=== PATIENT | male | born 1945 | race Caucasian/White ===

== ENCOUNTER 2018-09-07 18:10 | Inpatient (IN) | payer MEDICARE ==
[~2018-09-07] VITALS: Ht 170.2 cm; Wt 77.8 kg
[2018-09-07 18:40] VITALS: BP 163/84
[2018-09-07] MEDS ORDERED: NITROGLYCERIN 0.4 MG SL TABS BTL 25'S SL PRN (18:45)
--- OUTSIDE RECORDS SUMMARY | 2018-09-07 18:50 | XMS REPORT ---
Author Author [facility] Medical Staff Organization [facility] Address [address], [place] [address] Phone [phone] Care Team Providers Care Prefitter Name Role Phone OMAR GUZMÁN, LAURYN PP [phone] LAURYN NELSON MD, PP [phone] Summary purpose TRANSITION OF CARE AUTO GENERATION Chief Complaint and Reason for Visit No authorized Reason for Visit (Admitting Diagnosis) is available for this visit. Problem list No authorized problems tracked for continuity of care are available for this visit. Encounters No authorized problems tracked for encounter diagnoses are available for this visit. Medications No medications recorded for this patient visit Allergies, adverse reactions, alerts Allergen Category Ingredient Status Reaction Severity Onset morphine Drug Allergy morphine Confirmed or Verified whole body became warm Hydrocodone Drug Allergy Hydrocodone Confirmed or Verified makes him crazy bee stings Miscellaneous Allergy bee stings Confirmed or Verified Immunizations No immunizations recorded for this patient visit Relevant diagnostic tests and/or laboratory data No authorized results are available for this patient visit History of procedures No procedures recorded for this patient visit. Functional status No functional or cognitive status observations are available for this visit. Vital signs No authorized vital signs are available for this visit. Social history No Social History or smoking status observations were recorded for this visit. ( Unknown if ever smoked.) Treatment Plan No treatment plan text is available for this visit. Hospital discharge instructions No discharge instruction text is available for this visit.
--- OUTSIDE RECORDS SUMMARY | 2018-09-07 18:50 | XMS REPORT ---
Author Author [facility] Medical Staff Organization [facility] Address [address], [place] [address] Phone [phone] Care Team Providers Care Pin Drafter Operator Name Role Phone OMAR GUZMÁN, LAURYN PP [phone] LAURYN NELSON MD, PP [phone] Summary purpose TRANSITION OF CARE AUTO GENERATION [...]
--- OUTSIDE RECORDS SUMMARY | 2018-09-07 18:50 | XMS REPORT ---
Author Author [facility] Medical Staff [facility] Address [address], [place] [address] Phone [phone] Care Team Providers Care Parks Worker Name Role Phone OMAR GUZMÁN, LAURYN PP [phone] LAURYN NELSON MD, PP [phone] Summary purpose TRANSITION OF CARE AUTO GENERATION [...] for this patient visit History of procedures Procedure Code Code Type Description Date Performed Performing Physician 97329 CPT-4 POLYSOMNOGRAPHY W/CPAP 04-05-2016 SHAWNA HUDSON Functional status No functional or cognitive status [...]
--- OUTSIDE RECORDS SUMMARY | 2018-09-07 18:50 | XMS REPORT ---
Author Author [facility] Medical Staff Organization [facility] Address [address], [place] [address] Phone [phone] Care Team Providers Care City Letter Carrier Name Role Phone OMAR GUZMÁN, LAURYN PP [phone] LAURYN NELSON MD, PP [phone] Summary purpose TRANSITION OF CARE AUTO GENERATION [...] Code Type Description Date Performed Performing Physician 17892 CPT-4 POLYSOM 6/> YRS 4/> LUZ 01-20-2016 SHAWNA HUDSON Functional status No functional or [...]
--- OUTSIDE RECORDS SUMMARY | 2018-09-07 18:51 | XMS REPORT ---
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
--- OUTSIDE RECORDS SUMMARY | 2018-09-07 18:51 | XMS REPORT ---
Author Author Isaac Barger Organization [employer] Address Unknown Phone Unavailable Care Team Providers Care Cell Operator Name Role Phone Isaac Barger CP Unavailable Allergies, Adverse Reactions, Alerts Substance Reaction Event Type Morphine Sulfate Info Not Available Drug Allergy Problems Problem Type Condition ICD-9 Code Onset Dates Condition Status Problem Coronary atherosclerosis of unspecified type of vessel, [place] or graft 414.00 Active Problem Unspecified essential hypertension 401.9 Active Problem Paralysis agitans 332.0 Active Assessment Paralysis agitans 332.0 Active Problem Pure hypercholesterolemia 272.0 Active Assessment Costochondritis 733.6 Active Medications Medication Code System Code Instructions Start Date End Date Status Dosage Verapamil HCl [facility] [address]-21 80MG TAKE ONE TABLET BY MOUTH TWICE DAILY Prilosec [facility] [address]-85 20 MG Orally Once a day Jun 27, 2014 1 capsule Indomethacin [facility] [address]-44 50 MG Orally 2 or 3 times a day Dec 26, 2014 Jan 02, 2015 1 capsule with food Nitrostat [facility] [address]-33 0.4 MG Sublingual every 5 minutes up to 3 doses Jun 19, 2012 1 tablet under the tongue and allow to dissolve as needed Aspirin [facility] [address]-53 325 MG Orally Once a day 1 tablet Azilect [facility] [address]-98 0.5 MG Orally once a day Jul 05, 2013 1 tab Pravastatin Sodium [facility] [address]-97 40MG TAKE ONE TABLET BY MOUTH AT BEDTIME Procedures Procedure Coding System Code Date ELECTROCARDIOGRAM, TRACING CPT-4 34274 Dec 26, 2014 Office Visit, Est Pt., Level 3 CPT-4 43296 Dec 26, 2014 ELECTROCARDIOGRAM REPORT CPT-4 54864 Dec 26, 2014 PREHTN/HTN BP DOC INDCD F/U DOC CPT-4 G8950 Dec 26, 2014 TOBACCO NON-USER CPT-4 1036F Dec 26, 2014 Vital Signs Date/Time: Dec 26, 2014 BMI 32.92 Index Weight 204 lbs Height 66 in Oximetry 96 % Cardiac Monitoring Heart Rate 61 /min Blood Pressure Diastolic 88 mm Hg Blood Pressure Systolic 148 mm Hg Respiratory Rate 20 /min Results No Known Results Summary Purpose [employer]ClinicalWorks Submission
--- OUTSIDE RECORDS SUMMARY | 2018-09-07 18:51 | XMS REPORT ---
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
--- OUTSIDE RECORDS SUMMARY | 2018-09-07 18:51 | XMS REPORT ---
Author Author Isaac Barger Organization [employer] Address Unknown Phone Unavailable Care Team Providers Care Reel Hooker Name Role Phone Isaac Barger CP Unavailable Allergies, Adverse Reactions, Alerts Substance Reaction Event Type Morphine Sulfate Info Not Available Drug Allergy Problems Problem Type Condition Code Onset Dates Condition Status Assessment Essential (primary) hypertension I10 Active Assessment Atherosclerotic heart disease of [place] coronary artery without angina pectoris I25.10 Active Problem Parkinson's disease G20 Active Problem Essential (primary) hypertension I10 Active Problem Pure hypercholesterolemia E78.0 Active Assessment Pure hypercholesterolemia E78.0 Active Assessment Parkinson's disease G20 Active Problem Atherosclerotic heart disease of [place] coronary artery without angina pectoris I25.10 Active Assessment Chronic obstructive pulmonary disease, unspecified J44.9 Active Medications Medication Code System Code Instructions Start Date End Date Status Dosage Prilosec [facility] [address]-63 20 MG Orally Once a day Jun 27, 2014 1 capsule Pravastatin Sodium [facility] 00637091734 40MG TAKE ONE TABLET BY MOUTH AT BEDTIME Nitrostat [facility] [address]-28 0.4 MG Sublingual every 5 minutes up to 3 doses Jun 19, 2012 1 tablet under the tongue and allow to dissolve as needed Aspirin [facility] [address]-47 325 MG Orally Once a day 1 tablet Verapamil HCl [facility] 46642443114 80MG TAKE ONE TABLET BY MOUTH TWICE DAILY Azilect [facility] [address]-88 0.5 MG Orally once a day Jul 05, 2013 1 tab Procedures Procedure Coding System Code Date Office Visit, Est Pt., Level 3 CPT-4 51282 Sep 29, 2015 Vital Signs Date/Time: Sep 29, 2015 BMI 33.08 Index Weight 205 lbs Height 66 in Oximetry 95 % Cardiac Monitoring Heart Rate 107 /min Blood Pressure Diastolic 76 mm Hg Blood Pressure Systolic 134 mm Hg Results No Known Results Summary Purpose [employer]ClinicalWorks Submission
--- OUTSIDE RECORDS SUMMARY | 2018-09-07 18:51 | XMS REPORT ---
Author Author Israel Rodarte Organization [employer] Address Unknown Phone Unavailable Care Team Providers Care [place] Man Name Role Phone Israel Rodarte CP Unavailable Allergies No Known Allergies Problems Problem Type Condition Code Onset Dates Condition Status Problem Coronary atherosclerosis of unspecified type of vessel, [place] or graft 414.00 Active Problem Unspecified essential hypertension 401.9 Active Problem Paralysis agitans 332.0 Active Problem Pure hypercholesterolemia 272.0 Active Medications Medication Code System Code Instructions Start Date End Date Status Dosage Prilosec [facility] [address]-95 20 MG Orally Once a day Jun 27, 2014 1 capsule Results No Known Results Summary Purpose [employer]ClinicalWorks Submission
--- OUTSIDE RECORDS SUMMARY | 2018-09-07 18:51 | XMS REPORT ---
Author Author Israel Rodarte Organization [employer] Address Unknown Phone Unavailable Care Team Providers Care Bullet Slug Casting Machine Operator Name Role Phone Israel Rodarte CP Unavailable Allergies No Known Allergies Problems Problem Type Condition Code Onset Dates Condition Status Problem Coronary atherosclerosis of unspecified type of vessel, [place] or graft 414.00 Active Problem Unspecified essential hypertension 401.9 Active Problem Paralysis agitans 332.0 Active Problem Pure hypercholesterolemia 272.0 Active Medications Medication Code System Code Instructions Start Date End Date Status Dosage Prilosec [facility] [address]-63 20 MG Orally Once a day Jun 27, 2014 1 capsule Results No Known Results Summary Purpose [employer]Clinical[employer] Submission
--- OUTSIDE RECORDS SUMMARY | 2018-09-07 18:51 | XMS REPORT ---
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 421401017 Problem Pure hypercholesterolemia E78.0 Active 193365362 Problem Atherosclerotic heart disease of [place] coronary artery without angina pectoris I25.10 Active 127741905369968 Assessment Acute pharyngitis, unspecified J02.9 Oct, Active 616571977 Problem Parkinson's disease G20 Active 33022941 Problem Essential (primary) hypertension I10 Active 47239785 ALLERGIES Substance Reaction Event Type Date Status Morphine Sulfate Unknown Drug Allergy Oct, Active SOCIAL HISTORY No smoking Hx information available PLAN OF CARE VITAL SIGNS Height 66.0 in 2016-10-22 Weight 190 lbs 2016-10-22 BMI 30.66 kg/m2 2016-10-22 Heart Rate 70 /min 2016-10-22 Oximetry 97 % 2016-10-22 Temperature 94.8 degrees Fahrenheit 2016-10-22 Respiratory Rate 20 /min 2016-10-22 Blood pressure systolic 125 mm Hg 2016-10-22 Blood pressure diastolic 75 mm Hg 2016-10-22 MEDICATIONS Medication Instructions Dosage Frequency Start Date End Date Duration Status Nitrostat 0.4 MG Sublingual every 5 minutes up to 3 doses 1 tablet under the tongue and allow to dissolve as needed Jun, Active Azilect 0.5 MG Orally once a day 1 tab 24h Jun, 90 days Active Verapamil HCl 80MG TAKE ONE TABLET BY MOUTH TWICE DAILY 30 Active Pravastatin Sodium 40MG TAKE ONE TABLET BY MOUTH AT BEDTIME 90 Active Amoxicillin 500 MG Orally Three times a day 1 capsule 8h Oct, Oct, 10 days Active Aspirin 325 MG Orally Once a day 1 tablet 24h 30 day(s) Active Tizanidine HCl 4 MG Orally up to t.i.d. 1 tablet as needed Dec, Active Prilosec 20 MG Orally Once a day 1 capsule 24h Jun, 90 days Active RESULTS No Results PROCEDURES Procedure Date Ordered Related Diagnosis Body Site Office Visit, Est Pt., Level 3 Oct 22, 2016 IMMUNIZATIONS No Known Immunizations
--- OUTSIDE RECORDS SUMMARY | 2018-09-07 18:51 | XMS REPORT ---
Author Author Israel Rodarte Organization [employer] Address Unknown Phone Unavailable Care Team Providers Care Aircraft Mechanic Electrical And Radio Name Role Phone Israel Rodarte CP Unavailable Allergies, Adverse Reactions, Alerts Substance Reaction Event Type Morphine Sulfate Info Not Available Drug Allergy Problems Problem Type Condition Code Onset Dates Condition Status Problem Coronary atherosclerosis of unspecified type of vessel, [place] or graft 414.00 Active Problem Unspecified essential hypertension 401.9 Active Problem Paralysis agitans 332.0 Active Problem Pure hypercholesterolemia 272.0 Active Assessment Impacted cerumen 380.4 Active Medications Medication Code System Code Instructions Start Date End Date Status Dosage Prilosec [facility] [address]-22 20 MG Orally Once a day Jun 27, 2014 1 capsule Pravastatin Sodium [facility] [address]-94 40MG TAKE ONE TABLET BY MOUTH AT BEDTIME Verapamil HCl [facility] [address]-10 80MG TAKE ONE TABLET BY MOUTH TWICE DAILY Aspirin [facility] [address]-21 325 MG Orally Once a day 1 tablet Azilect [facility] [address]-98 0.5 MG Orally once a day Jul 05, 2013 1 tab Nitrostat [facility] [address]-91 0.4 MG Sublingual every 5 minutes up to 3 doses Jun 19, 2012 1 tablet under the tongue and allow to dissolve as needed Procedures Procedure Coding System Code Date TOBACCO NON-USER CPT-4 1036F February 25, 2015 BP SCR PRFRM RCMDD DEFIND SCR INTVL CPT-4 G8783 February 25, 2015 Office Visit, Est Pt., Level 3 CPT-4 16938 February 25, 2015 Vital Signs Date/Time: February 25, 2015 BMI 32.60 Index Weight 202 lbs Height 66 in Oximetry 98 % Cardiac Monitoring Heart Rate 75 /min Blood Pressure Diastolic 80 mm Hg Blood Pressure Systolic 136 mm Hg Respiratory Rate 20 /min Results No Known Results Summary Purpose eClinicalWorks Submission
--- OUTSIDE RECORDS SUMMARY | 2018-09-07 18:51 | XMS REPORT ---
Author Author Isaac Barger Organization [employer] Address Unknown Phone Unavailable Care Team Providers Care Supervisor Plate Pasting Name Role Phone Isaac Barger CP Unavailable Allergies No Known Allergies Problems Problem Type Condition ICD-9 Code Onset Dates Condition Status Problem Coronary atherosclerosis of unspecified type of vessel, [place] or graft 414.00 Active Problem Unspecified essential hypertension 401.9 Active Problem Paralysis agitans 332.0 Active Problem Pure hypercholesterolemia 272.0 Active Medications No Known Medications Results No Known Results Summary Purpose [employer]ClinicalWorks Submission
--- OUTSIDE RECORDS SUMMARY | 2018-09-07 18:51 | XMS REPORT ---
Author Author Isaac Barger Organization [employer] Address Unknown Phone Unavailable Care Team Providers Care Research Professional Name Role Phone Isaac Barger CP Unavailable Allergies, Adverse Reactions, Alerts Substance Reaction Event Type Morphine Sulfate Info Not Available Drug Allergy Problems Problem Type Condition Code Onset Dates Condition Status Assessment Unspecified open wound of right forearm, initial encounter S51.801A Active Assessment Encounter for immunization Z23 Active Medications Medication Code System Code Instructions Start Date End Date Status Dosage Verapamil HCl [facility] 02849277276 80MG TAKE ONE TABLET BY MOUTH TWICE DAILY Aspirin [facility] [address]-98 325 MG Orally Once a day 1 tablet Pravastatin Sodium [facility] 85704800073 40MG TAKE ONE TABLET BY MOUTH AT BEDTIME Prilosec [facility] [address]-78 20 MG Orally Once a day Jun 27, 2014 1 capsule Nitrostat [facility] [address]-49 0.4 MG Sublingual every 5 minutes up to 3 doses Jun 19, 2012 1 tablet under the tongue and allow to dissolve as needed Azilect [facility] [address]-74 0.5 MG Orally once a day Jul 05, 2013 1 tab Procedures Procedure Coding System Code Date TD VACCINE NO PRSRV >/=7 IM CPT-4 91477 Sep 04, 2015 FLU VACC medicare CPT-4 Q2038 Sep 04, 2015 ADMN FLU VAC NO FEE SCHED SAME DAY CPT-4 G0008 Sep 04, 2015 Results No Known Results Immunizations Vaccine Administration Date Influenza Sep 04, 2015 Td Sep 04, 2015 Summary Purpose eClinicalWorks Submission
--- OUTSIDE RECORDS SUMMARY | 2018-09-07 18:51 | XMS REPORT ---
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 140451284 Problem Pure hypercholesterolemia E78.0 Active 108281869 Problem Atherosclerotic heart disease of [place] coronary artery without angina pectoris I25.10 Active 274004634199681 Assessment Spondylosis without myelopathy or radiculopathy, cervical region M47.812 Jan, Active 316648888 Problem Parkinson's disease G20 Active 47025861 Problem Essential (primary) hypertension I10 Active 17454078 ALLERGIES Unknown Allergies SOCIAL HISTORY No smoking Hx information available PLAN OF CARE Activity Details Pending Test MRI : Cervical Spines ,Reason: VITAL SIGNS MEDICATIONS Medication Instructions Dosage Frequency Start Date End Date Duration Status Aspirin 325 MG Orally Once a day 1 tablet 24h 30 day(s) Active Tizanidine HCl 4 MG Orally up to t.i.d. 1 tablet as needed Dec, Active Prilosec 20 MG Orally Once a day 1 capsule 24h Jun, 90 days Active Pravastatin Sodium 40MG TAKE ONE TABLET BY MOUTH AT BEDTIME 90 Active Diazepam 10 MG Orally once a day 1 or 2 tablets an hour before procedure 24h Jan, Jan, Active Nitrostat 0.4 MG Sublingual every 5 minutes up to 3 doses 1 tablet under the tongue and allow to dissolve as needed Jun, Active Azilect 0.5 MG Orally once a day 1 tab 24h Jun, 90 days Active Verapamil HCl 80MG TAKE ONE TABLET BY MOUTH TWICE DAILY 30 Active RESULTS No Results PROCEDURES No Known procedures IMMUNIZATIONS No Known Immunizations
--- OUTSIDE RECORDS SUMMARY | 2018-09-07 18:51 | XMS REPORT ---
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
--- OUTSIDE RECORDS SUMMARY | 2018-09-07 18:52 | XMS REPORT ---
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 399779513260553 Problem Parkinson's disease G20 Active 72777753 Problem Essential (primary) hypertension I10 Active 44886498 ALLERGIES Substance Reaction Event Type Date Status Morphine Sulfate Unknown Drug Allergy Apr, Active ENCOUNTERS Encounter Location Date Diagnosis Isaac Barger MD [address] [place] [address] Apr, Pure hypercholesterolemia E78.0 ; Essential (primary) hypertension I10 and Chest pain , unspecified R07.9 Isaac Barger MD [address] [place] [address] Apr, Chest pain, unspecified R07.9 ; Pure hypercholesterolemia E78.0 ; Parkinson's disease G20 ; Essential (primary) hypertension I10 ; 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 and Spondylosis without myelopathy or radiculopathy, cervical region M47.812 Isaac Barger MD [address] [place] [address] Jan, Isaac Barger MD [address] [place] [address] Jan, Spondylosis without myelopathy or radiculopathy, cervical region M47.812 Isaac Barger MD [address] [place] [address] Oct, Acute pharyngitis, unspecified J02.9 Isaac Barger MD [address] [place] [address] Sep, Isaac Barger MD [address] [place] [address] Jan, Paralysis agitans 332.0 Isaac Barger MD [address] [place] [address] 18 Dec, 2015 Spondylosis without myelopathy or radiculopathy, cervical region M47.812 Isaac Barger MD [address] [place] [address] Nov, Spondylosis without myelopathy or radiculopathy, cervical region M47.812 Isaac Barger MD [address] [place] [address] Oct, Spondylosis without myelopathy or radiculopathy, cervical region M47.812 and Neoplasm of uncertain behavior of skin D48.5 Isaac Barger MD [address] [place] [address] 16 Sep, 2015 Chronic obstructive pulmonary disease, unspecified J44.9 ; Pure hypercholesterolemia E78.0 ; Parkinson's disease G20 ; Essential (primary) hypertension I10 and 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 Isaac Barger MD [address] [place] [address] Aug, Isaac Barger MD [address] [place] [address] Aug, Encounter for immunization Z23 and Unspecified open wound of right forearm, initial encounter S51.801A Isaac Barger MD [address] [place] [address] Aug, Isaac Barger MD [address] [place] [address] Jun, Isaac Barger MD [address] [place] [address] Feb, Impacted cerumen 380.4 Isaac Barger MD [address] [place] [address] Dec, Costochondritis 733.6 and Paralysis agitans 332.0 Isaac Barger MD [address] [place] [address] Aug, Actinic keratosis 702.0 and Need for prophylactic vaccination and inoculation, Influenza V04.81 Isaac Barger MD [address] [place] [address] 09 Jul, 2014 Cervical spondylosis without myelopathy 721.0 Isaac Barger MD [address] [place] [address] Jul, Isaac Barger MD [address] [place] [address] Jun, Cervical spondylosis without myelopathy 721.0 and Paralysis agitans 332.0 Isaac Barger MD [address] [place] [address] Jun, Isaac Barger MD [address] [place] [address] March, Isaac Barger MD [address] [place] [address] Jan, Slow transit constipation 564.01 Isaac Barger MD [address] [place] [address] Jan, Paralysis agitans 332.0 Isaac Barger MD [address] [place] [address] Jan, Isaac Barger MD [address] [place] [address] Oct, Osteoarthritis 715.16 ; Pure hypercholesterolemia 272.0 ; Unspecified essential hypertension 401.9 and Coronary atherosclerosis of unspecified type of vessel, ione or graft 414.00 Isaac Barger MD [address] [place] [address] Jul, Isaac Barger MD [address] [place] [address] Jul, Acute cystitis 595.0 and Need for prophylactic vaccination and inoculation, Influenza V04.81 Isaac Barger MD [address] [place] [address] Jun, Isaac Barger MD [address] [place] [address] Apr, Essential and other specified forms of tremor 333.1 ; Other vitamin B12 deficiency anemia 281.1 and Unspecified hypothyroidism 244.9 Isaac Barger MD [address] [place] [address] 04 Jan, 2013 Neoplasm of uncertain behavior of skin 238.2 and Unspecified essential hypertension 401.9 Isaac Barger MD [address] [place] [address] Nov, Neoplasm of uncertain behavior of skin 238.2 Isaac Barger MD [address] [place] [address] Nov, Isaac Barger MD [address] [place] [address] Nov, Neoplasm of uncertain behavior of skin 238.2 Isaac Barger MD [address] [place] [address] Nov, Neoplasm of uncertain behavior of skin 238.2 Isaac Barger MD [address] [place] [address] Jul, Neoplasm of uncertain behavior of skin 238.2 ; Pure hypercholesterolemia 272.0 ; Unspecified essential hypertension 401.9 ; Coronary atherosclerosis of unspecified type of vessel, ione or graft 414.00 and Need for prophylactic vaccination and inoculation, Influenza V04.81 Isaac Barger MD [address] [place] [address] Jun, Isaac Barger MD [address] [place] [address] Jun, Neoplasm of uncertain behavior of skin 238.2 ; Pure hypercholesterolemia 272.0 ; Unspecified essential hypertension 401.9 and Coronary atherosclerosis of unspecified type of vessel, ione or graft 414.00 Isaac Barger MD [address] [place] [address] Jun, Coronary atherosclerosis of unspecified type of vessel, ione or graft 414.00 Isaac Barger MD [address] [place] [address] Jan, Unspecified essential hypertension 401.9 ; Pure hypercholesterolemia 272.0 ; Raynaud's syndrome 443.0 and Contact dermatitis and other eczema, due to unspecified cause 692.9 Isaac Barger MD [address] [place] [address] Jan, Isaac Barger MD [address] [place] [address] Jan, Isaac Barger MD [address] [place] [address] Jun, Pure hypercholesterolemia 272.0 Isaac Barger MD [address] [place] [address] Jun, Pure hypercholesterolemia 272.0 Isaac Barger MD [address] [place] [address] Jun, Pure hypercholesterolemia 272.0 Isaac Barger MD [address] [place] [address] Apr, Pure hypercholesterolemia 272.0 and Hypertrophy (benign) of prostate without urinary obstruction and other lower urinary tract symptoms [LUTS] 600.00 Isaac Barger MD [address] [place] [address] March, Chest pain, unspecified 786.50 IMMUNIZATIONS No Known Immunizations SOCIAL HISTORY Never Assessed REASON FOR VISIT fasting lab and ECG PLAN OF CARE Activity Details Follow Up prn Reason: Pending Test CK-MB CP Future/Pending Procedure Ecg - Medicare VITAL SIGNS MEDICATIONS Medication Instructions Dosage Frequency Start Date End Date Duration Status Pramipexole Dihydrochloride 1.5 MG Orally Three times a day 1 tablet 8h Active Lidocaine 4 % Active Rasagiline Mesylate 1 MG Orally Once a day 1 tablet 24h Active Nitrostat 0.4 MG Sublingual every 5 minutes up to 3 doses 1 tablet under the tongue and allow to dissolve as needed Jun, Active Aspirin 325 MG Orally Once a day 1 tablet 24h 30 day(s) Active Verapamil HCl 80MG TAKE ONE TABLET BY MOUTH TWICE DAILY 30 Active Pravastatin Sodium 80 MG TAKE ONE TABLET BY MOUTH AT BEDTIME Active Prilosec 20 MG Orally Once a day 1 capsule 24h Jun, 90 days Active Azilect 0.5 MG Orally once a day 1 tab 24h Jun, 90 days Active RESULTS No Results PROCEDURES Procedure Date Ordered Result Body Site ELECTROCARDIOGRAM REPORT April 21, 2017 ELECTROCARDIOGRAM, TRACING April 21, 2017 INSTRUCTIONS MEDICATIONS ADMINISTERED No Known Medications MEDICAL (GENERAL) HISTORY Type Description Date Surgical History left knee arthroscopy Surgical History knee fracture, right Surgical History herniorrhaphy Surgical History right knee replacement, total 01/2014 Surgical History Heart cath Surgical History Heart cath
--- OUTSIDE RECORDS SUMMARY | 2018-09-07 18:52 | XMS REPORT ---
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 Active 755697373696869 Problem Parkinson's disease G20 Active 11776369 Problem Essential (primary) hypertension I10 Active 97025119 ALLERGIES Substance Reaction Event Type Date Status Morphine Sulfate Unknown Drug Allergy Apr, Active ENCOUNTERS Encounter Location Date Diagnosis Isaac Barger MD [address] [place] [address] Apr, Pure hypercholesterolemia E78.0 ; Essential (primary) hypertension I10 and Chest pain , unspecified R07.9 Isaac Barger MD [address] [place] [address] Apr, Chest pain, unspecified R07.9 ; Pure hypercholesterolemia E78.0 ; Parkinson's disease G20 ; Essential (primary) hypertension I10 ; 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 and Spondylosis without myelopathy or radiculopathy, cervical region M47.812 Isaac Barger MD [address] [place] [address] Jan, Isaac Barger MD [address] [place] [address] Jan, Spondylosis without myelopathy or radiculopathy, cervical region M47.812 Isaac Barger MD [address] [place] [address] Oct, Acute pharyngitis, unspecified J02.9 Isaac Barger MD [address] [place] [address] Sep, Isaac Barger MD [address] [place] [address] Jan, Paralysis agitans 332.0 Isaac Barger MD [address] [place] [address] 18 Dec, 2015 Spondylosis without myelopathy or radiculopathy, cervical region M47.812 Isaac Barger MD [address] [place] [address] Nov, Spondylosis without myelopathy or radiculopathy, cervical region M47.812 Isaac Barger MD [address] [place] [address] Oct, Spondylosis without myelopathy or radiculopathy, cervical region M47.812 and Neoplasm of uncertain behavior of skin D48.5 Isaac Barger MD [address] [place] [address] Sep, Chronic obstructive pulmonary disease, unspecified J44.9 ; Pure hypercholesterolemia E78.0 ; Parkinson's disease G20 ; Essential (primary) hypertension I10 and 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 Isaac Barger MD [address] [place] [address] Aug, Isaac Barger MD [address] [place] [address] Aug, Encounter for immunization Z23 and Unspecified open wound of right forearm, initial encounter S51.801A Isaac Barger MD [address] [place] [address] Aug, Isaac Barger MD [address] [place] [address] Jun, Isaac Barger MD [address] [place] [address] Feb, Impacted cerumen 380.4 Isaac Barger MD [address] [place] [address] Dec, Costochondritis 733.6 and Paralysis agitans 332.0 Isaac Barger MD [address] [place] [address] Aug, Actinic keratosis 702.0 and Need for prophylactic vaccination and inoculation, Influenza V04.81 Isaac Barger MD [address] [place] [address] 09 Jul, 2014 Cervical spondylosis without myelopathy 721.0 Isaac Barger MD [address] [place] [address] Jul, Isaac Barger MD [address] [place] [address] Jun, Cervical spondylosis without myelopathy 721.0 and Paralysis agitans 332.0 Isaac Barger MD [address] [place] [address] Jun, Isaac Barger MD [address] [place] [address] March, Isaac Barger MD [address] [place] [address] Jan, Slow transit constipation 564.01 Isaac Barger MD [address] [place] [address] Jan, Paralysis agitans 332.0 Isaac Barger MD [address] [place] [address] Jan, Isaac Barger MD [address] [place] [address] Oct, Osteoarthritis 715.16 ; Pure hypercholesterolemia 272.0 ; Unspecified essential hypertension 401.9 and Coronary atherosclerosis of unspecified type of vessel, shawnee or graft 414.00 Isaac Barger MD [address] [place] [address] Jul, Isaac Barger MD [address] [place] [address] Jul, Acute cystitis 595.0 and Need for prophylactic vaccination and inoculation, Influenza V04.81 Isaac Barger MD [address] [place] [address] Jun, Isaac Barger MD [address] [place] [address] Apr, Essential and other specified forms of tremor 333.1 ; Other vitamin B12 deficiency anemia 281.1 and Unspecified hypothyroidism 244.9 Isaac Barger MD [address] [place] [address] 04 Jan, 2013 Neoplasm of uncertain behavior of skin 238.2 and Unspecified essential hypertension 401.9 Isaac Barger MD [address] [place] [address] Nov, Neoplasm of uncertain behavior of skin 238.2 Isaac Barger MD [address] [place] [address] 10 Nov, 2012 Isaac Barger MD [address] [place] [address] Nov, Neoplasm of uncertain behavior of skin 238.2 Isaac Barger MD [address] [place] [address] Nov, Neoplasm of uncertain behavior of skin 238.2 Isaac Barger MD [address] [place] [address] Jul, Neoplasm of uncertain behavior of skin 238.2 ; Pure hypercholesterolemia 272.0 ; Unspecified essential hypertension 401.9 ; Coronary atherosclerosis of unspecified type of vessel, shawnee or graft 414.00 and Need for prophylactic vaccination and inoculation, Influenza V04.81 Isaac Barger MD [address] [place] [address] Jun, Isaac Barger MD [address] [place] [address] Jun, Neoplasm of uncertain behavior of skin 238.2 ; Pure hypercholesterolemia 272.0 ; Unspecified essential hypertension 401.9 and Coronary atherosclerosis of unspecified type of vessel, shawnee or graft 414.00 Isaac Barger MD [address] [place] [address] Jun, Coronary atherosclerosis of unspecified type of vessel, shawnee or graft 414.00 Isaac Barger MD [address] [place] [address] Jan, Unspecified essential hypertension 401.9 ; Pure hypercholesterolemia 272.0 ; Raynaud's syndrome 443.0 and Contact dermatitis and other eczema, due to unspecified cause 692.9 Isaac Barger MD [address] [place] [address] Jan, Isaac Barger MD [address] [place] [address] Jan, Isaac Barger MD [address] [place] [address] Jun, Pure hypercholesterolemia 272.0 Isaac Barger MD [address] [place] [address] Jun, Pure hypercholesterolemia 272.0 Isaac Barger MD [address] [place] [address] Jun, Pure hypercholesterolemia 272.0 Isaac Barger MD [address] [place] [address] Apr, Pure hypercholesterolemia 272.0 and Hypertrophy (benign) of prostate without urinary obstruction and other lower urinary tract symptoms [LUTS] 600.00 Isaac Barger MD [address] [place] [address] March, Chest pain, unspecified 786.50 IMMUNIZATIONS No Known Immunizations SOCIAL HISTORY Never Assessed REASON FOR VISIT referral to joint filler PLAN OF CARE Activity Details Follow Up prn Reason: Pending Test CBC NO 5 PART DIFFERENTIAL Pending Test TROPONIN Pending Test LIPID GROUP Pending Test COMPREHENSIVE METABOLIC Pending Test THYROID STIMULATING HORMONE Pending Test CK-MB CP VITAL SIGNS Height 66.00 in 2017-04-18 Weight 192 lbs 2017-04-18 BMI 30.99 kg/m2 2017-04-18 Heart Rate 63 /min 2017-04-18 Oximetry 95 % 2017-04-18 Blood pressure systolic 148 mm Hg 2017-04-18 Blood pressure diastolic 81 mm Hg 2017-04-18 MEDICATIONS Medication Instructions Dosage Frequency Start Date End Date Duration Status Nitrostat 0.4 MG Sublingual every 5 minutes up to 3 doses 1 tablet under the tongue and allow to dissolve as needed Jun, Active Pramipexole Dihydrochloride 1.5 MG Orally Three times a day 1 tablet 8h Active Rasagiline Mesylate 1 MG Orally Once a day 1 tablet 24h Active Verapamil HCl 80MG TAKE ONE TABLET BY MOUTH TWICE DAILY 30 Active Lidocaine 4 % Active Azilect 0.5 MG Orally once a day 1 tab 24h Jun, 90 days Active Prilosec 20 MG Orally Once a day 1 capsule 24h Jun, 90 days Active Pravastatin Sodium 80 MG TAKE ONE TABLET BY MOUTH AT BEDTIME Active Aspirin 325 MG Orally Once a day 1 tablet 24h 30 day(s) Active RESULTS No Results PROCEDURES Procedure Date Ordered Result Body Site Ecg - Medicare 2017-04-18 N/A ELECTROCARDIOGRAM REPORT April 18, 2017 ELECTROCARDIOGRAM, TRACING April 18, 2017 INSTRUCTIONS MEDICATIONS ADMINISTERED No Known Medications MEDICAL (GENERAL) HISTORY Type Description Date Surgical History left knee arthroscopy Surgical History knee fracture, right Surgical History herniorrhaphy Surgical History right knee replacement, total 01/2014 Surgical History Heart cath -1998 Surgical History Heart cath
--- OUTSIDE RECORDS SUMMARY | 2018-09-07 18:52 | XMS REPORT | Clinical Summary ---
Author Author Admin, JOHN Organization [facility] Address Unknown Phone Unavailable Allergies, Adverse Reactions, Alerts Allergy Name Reaction Description Start Date Severity Status Provider BEE STINGS Critical Active Otilio Conti MD MORPHINE felt like he was on fire Critical Active Otilio Conti MD HYDROCODONE-ACETAMINOPHEN made him crazy Critical Active Otilio Conti MD Conditions or Problems Problem Name Problem Code Onset Date Status Entry Date Provider Comment Standard Description Annotate HYPERLIPIDEMIA 272.4 Active Otilio Conti MD Other and unspecified hyperlipidemia HYPERTENSION 401.9 Active Otilio Conti MD Unspecified essential hypertension FH DIABETES V18.0 Active Otilio Conti MD Family history of diabetes mellitus FH STROKE V17.1 Active Otilio Conti MD Family history of stroke (cerebrovascular) GROSS HEMATURIA 599.71 Active Otilio Conti MD Gross hematuria BLADDER CALCULUS 594.1 Active Otilio Conti MD Other calculus in bladder B P H 600.00 Active Otilio Conti MD Hypertrophy (benign) of prostate without urinary obstruction and other lower urinary tract (LUTS) U T I-ACUTE 599.0 Active Otilio Conti MD Urinary tract infection, site not specified URINARY TRACT INFECTION, HX OF V13.00 Active Otilio Conti MD Personal history of unspecified urinary disorder Lower Urinary Tract Symptoms 788.99 Active Otilio Conti MD Other symptoms involving urinary system 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 Otilio Conti MD Bladder neck obstruction Neck and back pain 723.1 Active Nura Daniels MD Cervicalgia Medication List Medication Instructions Start Date Stop Date Generic Name NDC Status Provider Patient Instruction MULTIMINERAL PLUS TABS 1 bid MULTIPLE VITAMINS-MINERALS 98738575026 Active Otilio Conti MD Active [facility] MILK THISTLE 175 MG CAPS 1 tab bid MILK THISTLE 22098861255 Active Otilio Conti MD Active CO Q 10 10 MG CAPS a tab bid COENZYME Q10 60693119944 Active Otilio Cotni MD Active VERAPAMIL HCL 80 MG TABS 1 daily VERAPAMIL HCL 02177445441 Active Otilio Conti MD Active PRAVASTATIN SODIUM 40 MG TABS 1 daily PRAVASTATIN SODIUM 69967331069 Active Otilio Conti MD Active CIPRO 500 MG TAB 1 tablet by mouth twice daily CIPROFLOXACIN HCL 10651747272 No Longer Active Otilio Conti MD Active [facility] SAW PALMETTO 160 MG CAPS bid SAW PALMETTO (SERENOA REPENS ) 61521210579 No Longer Active Otilio Conti MD Active [facility] IBUPROFEN 200 MG TABS Take one by mouth daily IBUPROFEN 08825002438 Active Otilio Conti MD Active PRILOSEC OTC 20 MG TBEC Take one by mouth daily OMEPRAZOLE MAGNESIUM 06767097167 Active Otilio Conti MD Active ASPIRIN CHILDRENS 81 MG CHEW ASPIRIN 90248640009 Active Otilio Conti MD Active MENS MULTIVITAMIN PLUS TABS MULTIPLE VITAMINS-MINERALS 59420996680 Active Otilio Conti MD Active OMEGA 3 1000 MG CAPS bid OMEGA-3 FATTY ACIDS 68679880198 Active Otilio Conti MD Active NITROSTAT 0.4 MG SUBL 1 every 5 min for 3 doses prn chest pain NITROGLYCERIN 53973647438 Active Otilio Conti MD Active CALAN 80 MG TABS Take one by mouth daily VERAPAMIL HCL 37633839094 Active Otilio Conti MD Active ZOCOR 40 MG TABS Take one by mouth daily SIMVASTATIN 79238618348 Active Otilio Conti MD Active [facility] SAW PALMETTO 160 MG CAPS bid [facility] SAW PALMETTO 160 MG CAPS SAW PALMETTO (SERENOA REPENS) Inactive CIPRO 500 MG TAB 1 tablet by mouth twice daily CIPRO 500 MG TAB 953702 CIPROFLOXACIN HCL Inactive Advance Directives Directive Description Start Date PERMISSION TO SHARE Encounters Code Encounter Date Provider Facility CPT-10635 Level 4 New Patient 12:24:11 CDT Nura Daniels MD [facility] CPT-42436 Level 3 Est. Patient 09:48:26 CDT Otilio Conti MD [facility] CPT-61289 Level 3 Est. 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 Patient 22:49:29 CHICK GRADER Otilio Conti MD [facility] CPT-84914 Level 3 Est. Patient 17:11:11 CDT Otilio Conti MD [facility] CPT-16472 Level 4 New Patient 22:35:19 CDT Otilio Conti MD [facility] Procedures Code Procedure Name Date Entry Date Standard Description CPT-83903 Abd single AP View 09:56:56 CDT CPT-74679 Postop F/U Visit 11:15:26 CHICK GRADER CPT-01286 Abd single AP View 09:43:31 [employer]ICK [employer] CPT-96783 Postop F/U Visit 11:03:49 [employer] CPT-82966 Bladder Scan 22:49:29 CHICK GRADER CPT-97170 Cystoscopy 22:49:29 CHICK GRADER CPT-38590 Urine Dip (Floor Use Only) 17:31:24 CHICK GRADER CPT-39978 Abd single AP View 16:29:57 CHICK GRADER CPT-70798 Urine Dip (Floor Use Only) 17:11:11 CDT CPT-92374 Abd single AP View 15:32:06 CDT CPT-32590 Bladder Scan 17:23:57 CHICK GRADER CPT-25277 Postop F/U Visit 17:23:57 CHICK GRADER CPT-35424 Urine Dip (Floor Use Only) 17:23:57 CHICK GRADER CPT-08793 Urine Dip (Floor Use Only) 09:34:16 CDT CPT-33362 Bladder Scan 09:34:16 CDT CPT-75224 Postop F/U Visit 09:34:16 CDT CPT-07386 Postop F/U Visit 21:34:52 CDT CPT-08855 Cystoscopy 22:35:19 CDT CPT-76563 Abd single AP View 11:03:03 CDT
--- OUTSIDE RECORDS SUMMARY | 2018-09-07 18:52 | XMS REPORT | Clinical Summary ---
Author Author Admin, JOHN Organization [facility] Address Unknown Phone Unavailable Allergies, Adverse Reactions, [...] MULTIMINERAL PLUS TABS 1 bid MULTIPLE VITAMINS-MINERALS 81622308247 Active Otilio Conti MD Active [facility] MILK THISTLE 175 MG CAPS 1 tab bid MILK THISTLE 65408402745 Active Otilio Conti MD Active CO Q 10 10 MG CAPS a tab bid COENZYME Q10 51314176305 Active Otilio Conti MD Active VERAPAMIL HCL 80 MG TABS 1 daily VERAPAMIL HCL 78371243471 Active Otilio Conti MD Active PRAVASTATIN SODIUM 40 MG TABS 1 daily PRAVASTATIN SODIUM 33107749183 Active Otilio Conti MD Active CIPRO 500 MG TAB 1 tablet by mouth twice daily CIPROFLOXACIN HCL 48866115443 No Longer Active Otilio Conti MD Active [facility] SAW PALMETTO 160 MG CAPS bid SAW PALMETTO (SERENOA REPENS ) 67324042607 No Longer Active Otilio Conti MD Active [facility] IBUPROFEN 200 MG TABS Take one by mouth daily IBUPROFEN 22346776815 Active Otilio Conti MD Active PRILOSEC OTC 20 MG TBEC Take one by mouth daily OMEPRAZOLE MAGNESIUM 68692311714 Active Otilio Conti MD Active ASPIRIN CHILDRENS 81 MG CHEW ASPIRIN 18096657275 Active Otilio Conti MD Active MENS MULTIVITAMIN PLUS TABS MULTIPLE VITAMINS-MINERALS 09246142863 Active Otilio Conti MD Active OMEGA 3 1000 MG CAPS bid OMEGA-3 FATTY ACIDS 00989363253 Active Otilio Conti MD Active NITROSTAT 0.4 MG SUBL 1 every 5 min for 3 doses prn chest pain NITROGLYCERIN 65145400318 Active Otilio Conti MD Active CALAN 80 MG TABS Take one by mouth daily VERAPAMIL HCL 52202982184 Active Otilio Conti MD Active ZOCOR 40 MG TABS Take one by mouth daily SIMVASTATIN 57491727535 Active Otilio Conti MD Active [facility] SAW PALMETTO 160 MG CAPS bid [facility] SAW PALMETTO 160 MG CAPS SAW PALMETTO (SERENOA REPENS) Inactive CIPRO 500 MG TAB 1 tablet by mouth twice daily CIPRO 500 MG TAB [id number] CIPROFLOXACIN HCL Inactive Advance Directives Directive Description Start Date PERMISSION TO SHARE Encounters Code Encounter Date Provider Facility CPT-67088 Level 4 New Patient 12:24:11 CDT Nura Daniels MD [facility] CPT-12053 Level 3 Est. Patient 09:48:26 CDT Otilio Conti MD [facility] CPT-53352 Level 3 Est. Patient 11:15:26 METERS SUPERINTENDENT Otilio Conti MD [facility] CPT-69325 Level 4 Est. Patient 22:49:29 METERS SUPERINTENDENT Otilio Conti MD [facility] CPT-37575 Level 3 Est. Patient 17:11:11 CDT Otilio Conit MD [facility] CPT-97071 Level 4 New Patient 22:35:19 CDT Otilio Conti MD [facility] Procedures Code Procedure Name Date Entry Date Standard Description CPT-58816 Abd single AP View 09:56:56 CDT CPT-89565 Postop F/U Visit 11:15:26 METERS SUPERINTENDENT CPT-86242 Abd single AP View 09:43:31 METERS SUPERINTENDENT CPT-44012 Postop F/U Visit 11:03:49 METERS SUPERINTENDENT CPT-46330 Bladder Scan 22:49:29 METERS SUPERINTENDENT CPT-52271 Cystoscopy 22:49:29 METERS SUPERINTENDENT CPT-60812 Urine Dip (Floor Use Only) 17:31:24 METERS SUPERINTENDENT CPT-33661 Abd single AP View 16:29:57 METERS SUPERINTENDENT CPT-84039 Urine Dip (Floor Use Only) 17:11:11 CDT CPT-91436 Abd single AP View 15:32:06 CDT CPT-50068 Bladder Scan 17:23:57 METERS SUPERINTENDENT CPT-33040 Postop F/U Visit 17:23:57 METERS SUPERINTENDENT CPT-26486 Urine Dip (Floor Use Only) 17:23:57 METERS SUPERINTENDENT CPT-48922 Urine Dip (Floor Use Only) 09:34:16 CDT CPT-12361 Bladder Scan 09:34:16 CDT CPT-71498 Postop F/U Visit 09:34:16 CDT CPT-12819 Postop F/U Visit 21:34:52 CDT CPT-43222 Cystoscopy 22:35:19 CDT CPT-02317 Abd single AP View 11:03:03 CDT
--- OUTSIDE RECORDS SUMMARY | 2018-09-07 18:53 | XMS REPORT | Clinical Summary ---
Author Author Admin, JOHN Organization [facility] Address Unknown Phone Unavailable Allergies, Adverse [...] MULTIMINERAL PLUS TABS 1 bid MULTIPLE VITAMINS-MINERALS 36403827083 Active Otilio Conti MD Active [facility] MILK THISTLE 175 MG CAPS 1 tab bid MILK THISTLE 61537491407 Active Otilio Conti MD Active CO Q 10 10 MG CAPS a tab bid COENZYME Q10 36642013657 Active Otilio Conti MD Active VERAPAMIL HCL 80 MG TABS 1 daily VERAPAMIL HCL 87944099875 Active Otilio Conti MD Active PRAVASTATIN SODIUM 40 MG TABS 1 daily PRAVASTATIN SODIUM 28798094697 Active Otilio Conti MD Active CIPRO 500 MG TAB 1 tablet by mouth twice daily CIPROFLOXACIN HCL 98234746224 No Longer Active Otilio Conti MD Active [facility] SAW PALMETTO 160 MG CAPS bid SAW PALMETTO (SERENOA REPENS ) 39820496710 No Longer Active Otilio Conti MD Active [facility] IBUPROFEN 200 MG TABS Take one by mouth daily IBUPROFEN 34068843880 Active Otilio Conti MD Active PRILOSEC OTC 20 MG TBEC Take one by mouth daily OMEPRAZOLE MAGNESIUM 47307409491 Active Otilio Conti MD Active ASPIRIN CHILDRENS 81 MG CHEW ASPIRIN 20372553340 Active Otilio Conti MD Active MENS MULTIVITAMIN PLUS TABS MULTIPLE VITAMINS-MINERALS 14144811566 Active Otilio Conti MD Active OMEGA 3 1000 MG CAPS bid OMEGA-3 FATTY ACIDS 21731740207 Active Otilio Conti MD Active NITROSTAT 0.4 MG SUBL 1 every 5 min for 3 doses prn chest pain NITROGLYCERIN 33596275178 Active Otilio Conti MD Active CALAN 80 MG TABS Take one by mouth daily VERAPAMIL HCL 51101627226 Active Otilio Conti MD Active ZOCOR 40 MG TABS Take one by mouth daily SIMVASTATIN 50685280180 Active Otilio Conti MD Active [facility] SAW PALMETTO 160 MG CAPS bid [facility] SAW PALMETTO 160 MG CAPS SAW PALMETTO (SERENOA REPENS) Inactive CIPRO 500 MG TAB 1 tablet by mouth twice daily CIPRO 500 MG TAB 964738 CIPROFLOXACIN HCL Inactive Advance Directives Directive Description Start Date PERMISSION TO SHARE Encounters Code Encounter Date Provider Facility CPT-19498 Level 4 New Patient 12:24:11 CDT Nura Daniels MD [facility] CPT-99860 Level 3 Est. Patient 09:48:26 CDT Otilio Conti MD [facility] CPT-82339 Level 3 Est. Patient 11:15:26 EDITOR PUBLICATIONS Otilio Conti MD [facility] CPT-64915 Level 4 Est. Patient 22:49:29 EDITOR PUBLICATIONS Otilio Conti MD [facility] CPT-55190 Level 3 Est. Patient 17:11:11 CDT Otilio Conti MD [facility] CPT-47062 Level 4 New Patient 22:35:19 CDT Otilio Conti MD [facility] Procedures Code Procedure Name Date Entry Date Standard Description CPT-37651 Abd single AP View 09:56:56 CDT CPT-52604 Postop F/U Visit 11:15:26 EDITOR PUBLICATIONS CPT-72605 Abd single AP View 09:43:31 EDITOR PUBLICATIONS CPT-51664 Postop F/U Visit 11:03:49 EDITOR PUBLICATIONS CPT-46220 Bladder Scan 22:49:29 EDITOR PUBLICATIONS CPT-61911 Cystoscopy 22:49:29 EDITOR PUBLICATIONS CPT-08905 Urine Dip (Floor Use Only) 17:31:24 EDITOR PUBLICATIONS CPT-60942 Abd single AP View 16:29:57 EDITOR PUBLICATIONS CPT-37737 Urine Dip (Floor Use Only) 17:11:11 CDT CPT-23162 Abd single AP View 15:32:06 CDT CPT-23434 Bladder Scan 17:23:57 EDITOR PUBLICATIONS CPT-91016 Postop F/U Visit 17:23:57 EDITOR PUBLICATIONS CPT-73607 Urine Dip (Floor Use Only) 17:23:57 EDITOR PUBLICATIONS CPT-04557 Urine Dip (Floor Use Only) 09:34:16 CDT CPT-36066 Bladder Scan 09:34:16 CDT CPT-10029 Postop F/U Visit 09:34:16 CDT CPT-38901 Postop F/U Visit 21:34:52 CDT CPT-22750 Cystoscopy 22:35:19 CDT CPT-61405 Abd single AP View 11:03:03 CDT
--- OUTSIDE RECORDS SUMMARY | 2018-09-07 18:53 | XMS REPORT | Clinical Summary ---
Author Author Admin, JOHN Organization [facility] Address Unknown Phone Unavailable Allergies, Adverse [...] MULTIMINERAL PLUS TABS 1 bid MULTIPLE VITAMINS-MINERALS 26186642637 Active Otilio Conti MD Active [facility] MILK THISTLE 175 MG CAPS 1 tab bid MILK THISTLE 52364273935 Active Otilio Conti MD Active CO Q 10 10 MG CAPS a tab bid COENZYME Q10 41715478717 Active Otilio Conti MD Active VERAPAMIL HCL 80 MG TABS 1 daily VERAPAMIL HCL 21687058177 Active Otilio Conti MD Active PRAVASTATIN SODIUM 40 MG TABS 1 daily PRAVASTATIN SODIUM 03726866654 Active Otilio Conti MD Active CIPRO 500 MG TAB 1 tablet by mouth twice daily CIPROFLOXACIN HCL 44218948824 No Longer Active Otilio Conti MD Active [facility] SAW PALMETTO 160 MG CAPS bid SAW PALMETTO (SERENOA REPENS ) 65803748718 No Longer Active Otilio Conti MD Active [facility] IBUPROFEN 200 MG TABS Take one by mouth daily IBUPROFEN 14087279218 Active Otilio Conti MD Active PRILOSEC OTC 20 MG TBEC Take one by mouth daily OMEPRAZOLE MAGNESIUM 79634100089 Active Otilio Conti MD Active ASPIRIN CHILDRENS 81 MG CHEW ASPIRIN 40628071593 Active Otilio Conti MD Active MENS MULTIVITAMIN PLUS TABS MULTIPLE VITAMINS-MINERALS 17929216656 Active Otilio Conti MD Active OMEGA 3 1000 MG CAPS bid OMEGA-3 FATTY ACIDS 52496919415 Active Otilio Conti MD Active NITROSTAT 0.4 MG SUBL 1 every 5 min for 3 doses prn chest pain NITROGLYCERIN 59131191342 Active Otilio Conti MD Active CALAN 80 MG TABS Take one by mouth daily VERAPAMIL HCL 10963134448 Active Otilio Conti MD Active ZOCOR 40 MG TABS Take one by mouth daily SIMVASTATIN 42602526311 Active Otilio Conti MD Active [facility] SAW PALMETTO 160 MG CAPS bid [facility] SAW PALMETTO 160 MG CAPS SAW PALMETTO (SERENOA REPENS) Inactive CIPRO 500 MG TAB 1 tablet by mouth twice daily CIPRO 500 MG TAB 808384 CIPROFLOXACIN HCL Inactive Advance Directives Directive Description Start Date PERMISSION TO SHARE Encounters Code Encounter Date Provider Facility CPT-17025 Level 4 New Patient 12:24:11 CDT Nura Daniels MD [facility] CPT-37168 Level 3 Est. Patient 09:48:26 CDT Otilio Conti MD [facility] CPT-46705 Level 3 Est. Patient 11:15:26 GATE MORTISER OPERATOR Otilio Conti MD [facility] CPT-27575 Level 4 Est. Patient 22:49:29 GATE MORTISER OPERATOR Otilio Conti MD [facility] CPT-04447 Level 3 Est. Patient 17:11:11 CDT Otilio Conti MD [facility] CPT-00467 Level 4 New Patient 22:35:19 CDT Otilio Conti MD [facility] Procedures Code Procedure Name Date Entry Date Standard Description CPT-71945 Abd single AP View 09:56:56 CDT CPT-37366 Postop F/U Visit 11:15:26 GATE MORTISER OPERATOR CPT-06149 Abd single AP View 09:43:31 GATE MORTISER OPERATOR CPT-39709 Postop F/U Visit 11:03:49 GATE MORTISER OPERATOR CPT-35013 Bladder Scan 22:49:29 GATE MORTISER OPERATOR CPT-11150 Cystoscopy 22:49:29 GATE MORTISER OPERATOR CPT-32665 Urine Dip (Floor Use Only) 17:31:24 GATE MORTISER OPERATOR CPT-73252 Abd single AP View 16:29:57 GATE MORTISER OPERATOR CPT-00782 Urine Dip (Floor Use Only) 17:11:11 CDT CPT-93907 Abd single AP View 15:32:06 CDT CPT-66270 Bladder Scan 17:23:57 GATE MORTISER OPERATOR CPT-21902 Postop F/U Visit 17:23:57 GATE MORTISER OPERATOR CPT-83442 Urine Dip (Floor Use Only) 17:23:57 GATE MORTISER OPERATOR CPT-73183 Urine Dip (Floor Use Only) 09:34:16 CDT CPT-62362 Bladder Scan 09:34:16 CDT CPT-76960 Postop F/U Visit 09:34:16 CDT CPT-31372 Postop F/U Visit 21:34:52 CDT CPT-29705 Cystoscopy 22:35:19 CDT CPT-04069 Abd single AP View 11:03:03 CDT
--- OUTSIDE RECORDS SUMMARY | 2018-09-07 18:53 | XMS REPORT | Clinical Summary ---
Author Author Admin, QIE Organization [facility] Address Unknown Phone Unavailable Allergies, Adverse [...] MULTIMINERAL PLUS TABS 1 bid MULTIPLE VITAMINS-MINERALS 67803183783 Active Otilio Conti MD Active [facility] MILK THISTLE 175 MG CAPS 1 tab bid MILK THISTLE 29161505505 Active Otilio Conti MD Active CO Q 10 10 MG CAPS a tab bid COENZYME Q10 10593064857 Active Otilio Conti MD Active VERAPAMIL HCL 80 MG TABS 1 daily VERAPAMIL HCL 80350324044 Active Otilio Conti MD Active PRAVASTATIN SODIUM 40 MG TABS 1 daily PRAVASTATIN SODIUM 82413249830 Active Otilio Conti MD Active CIPRO 500 MG TAB 1 tablet by mouth twice daily CIPROFLOXACIN HCL 01581949579 No Longer Active Otiloi Conti MD Active [facility] SAW PALMETTO 160 MG CAPS bid SAW PALMETTO (SERENOA REPENS ) 23801131843 No Longer Active Otilio Conti MD Active [facility] IBUPROFEN 200 MG TABS Take one by mouth daily IBUPROFEN 32313851690 Active Otilio Conti MD Active PRILOSEC OTC 20 MG TBEC Take one by mouth daily OMEPRAZOLE MAGNESIUM 01356283422 Active Otilio Conti MD Active ASPIRIN CHILDRENS 81 MG CHEW ASPIRIN 84078946496 Active Otilio Conti MD Active MENS MULTIVITAMIN PLUS TABS MULTIPLE VITAMINS-MINERALS 90518962857 Active Otilio Conti MD Active OMEGA 3 1000 MG CAPS bid OMEGA-3 FATTY ACIDS 54295076640 Active Otilio Conti MD Active NITROSTAT 0.4 MG SUBL 1 every 5 min for 3 doses prn chest pain NITROGLYCERIN 86385365728 Active Otilio Conti MD Active CALAN 80 MG TABS Take one by mouth daily VERAPAMIL HCL 03190087938 Active Otilio Conti MD Active ZOCOR 40 MG TABS Take one by mouth daily SIMVASTATIN 07258639774 Active Otilio Conti MD Active [facility] SAW PALMETTO 160 MG CAPS bid [facility] SAW PALMETTO 160 MG CAPS SAW PALMETTO (SERENOA REPENS) Inactive CIPRO 500 MG TAB 1 tablet by mouth twice daily CIPRO 500 MG TAB 901058 CIPROFLOXACIN HCL Inactive Advance Directives Directive Description Start Date PERMISSION TO SHARE Encounters Code Encounter Date Provider Facility CPT-33199 Level 4 New Patient 12:24:11 CDT Nura Daniels MD [facility] CPT-10480 Level 3 Est. Patient 09:48:26 CDT Otilio Conti MD [facility] CPT-66808 Level 3 Est. Patient 11:15:26 HEALTH DIAGNOSTICS TEACHER Otilio Conti MD [facility] CPT-75823 Level 4 Est. Patient 22:49:29 HEALTH DIAGNOSTICS TEACHER Otilio Conti MD [facility] CPT-29100 Level 3 Est. Patient 17:11:11 CDT Otilio Conti MD [facility] CPT-82479 Level 4 New Patient 22:35:19 CDT Otilio Conti MD [facility] Procedures Code Procedure Name Date Entry Date Standard Description CPT-83872 Abd single AP View 09:56:56 CDT CPT-65193 Postop F/U Visit 11:15:26 HEALTH DIAGNOSTICS TEACHER CPT-14934 Abd single AP View 09:43:31 HEALTH DIAGNOSTICS TEACHER CPT-53415 Postop F/U Visit 11:03:49 HEALTH DIAGNOSTICS TEACHER CPT-92540 Bladder Scan 22:49:29 HEALTH DIAGNOSTICS TEACHER CPT-97751 Cystoscopy 22:49:29 HEALTH DIAGNOSTICS TEACHER CPT-27451 Urine Dip (Floor Use Only) 17:31:24 HEALTH DIAGNOSTICS TEACHER CPT-11744 Abd single AP View 16:29:57 HEALTH DIAGNOSTICS TEACHER CPT-44820 Urine Dip (Floor Use Only) 17:11:11 CDT CPT-91801 Abd single AP View 15:32:06 CDT CPT-10416 Bladder Scan 17:23:57 HEALTH DIAGNOSTICS TEACHER CPT-66630 Postop F/U Visit 17:23:57 HEALTH DIAGNOSTICS TEACHER CPT-91322 Urine Dip (Floor Use Only) 17:23:57 HEALTH DIAGNOSTICS TEACHER CPT-90298 Urine Dip (Floor Use Only) 09:34:16 CDT CPT-63963 Bladder Scan 09:34:16 CDT CPT-62336 Postop F/U Visit 09:34:16 CDT CPT-85203 Postop F/U Visit 21:34:52 CDT CPT-37396 Cystoscopy 22:35:19 CDT CPT-46074 Abd single AP View 11:03:03 CDT
--- OUTSIDE RECORDS SUMMARY | 2018-09-07 18:54 | XMS REPORT | Clinical Summary ---
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.00 Active Otilio Conti MD Personal history of unspecified urinary disorder Lower Urinary Tract Symptoms 788.99 Resolved Nura Daniels MD Other symptoms involving urinary system 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 Otilio Conti MD Bladder neck obstruction Neck and back pain 723.1 Active Nura Daniels MD Cervicalgia Neck pain, chronic 723.1 Active Nura Daniels MD Cervicalgia Special screening for malignant neoplasms, colon V76.51 Active Nura Daniels MD Screening for malignant neoplasms of colon GROSS HEMATURIA ICD-599.71 Inactive Nura Daniels MD U T I-ACUTE ICD-599.0 Inactive Nura Daniels MD Lower Urinary Tract Symptoms ICD-788.99 Inactive Nura Daniels MD Medication List Medication Instructions Start Date Stop Date Generic Name NDC Status Provider Patient Instruction MULTIMINERAL PLUS TABS 1 bid MULTIPLE VITAMINS-MINERALS 71076886962 Active Otilio Conti MD Active [facility] MILK THISTLE 175 MG CAPS 1 tab bid MILK THISTLE 24667744302 Active Otilio Conti MD Active CO Q 10 10 MG CAPS a tab bid COENZYME Q10 72034717518 Active Otilio Conti MD Active VERAPAMIL HCL 80 MG TABS 1 daily VERAPAMIL HCL 03933309100 Active Otilio Conti MD Active PRAVASTATIN SODIUM 40 MG TABS 1 daily PRAVASTATIN SODIUM 94934482556 Active Otilio Conti MD Active CIPRO 500 MG TAB 1 tablet by mouth twice daily CIPROFLOXACIN HCL 04000518520 No Longer Active Otliio Conti MD Active [facility] SAW PALMETTO 160 MG CAPS bid SAW PALMETTO (SERENOA REPENS ) 92342027367 No Longer Active Otilio Conti MD Active [facility] IBUPROFEN 200 MG TABS Take one by mouth daily IBUPROFEN 77982614293 Active Otilio Conti MD Active PRILOSEC OTC 20 MG TBEC Take one by mouth daily OMEPRAZOLE MAGNESIUM 18410331244 Active Otilio Conti MD Active ASPIRIN CHILDRENS 81 MG CHEW ASPIRIN 38966544120 Active Otilio Conti MD Active MENS MULTIVITAMIN PLUS TABS MULTIPLE VITAMINS-MINERALS 76135475240 Active Otilio Conti MD Active OMEGA 3 1000 MG CAPS bid OMEGA-3 FATTY ACIDS 12697317745 Active Otilio Conti MD Active NITROSTAT 0.4 MG SUBL 1 every 5 min for 3 doses prn chest pain NITROGLYCERIN 34413234159 Active Otilio Conti MD Active CALAN 80 MG TABS Take one by mouth daily VERAPAMIL HCL 05763160600 Active Otilio Conti MD Active ZOCOR 40 MG TABS Take one by mouth daily SIMVASTATIN 70989200492 Active Otilio Conti MD Active [facility] SAW PALMETTO 160 MG CAPS bid [facility] SAW PALMETTO 160 MG CAPS SAW PALMETTO (SERENOA REPENS) Inactive CIPRO 500 MG TAB 1 tablet by mouth twice daily CIPRO 500 MG TAB 465551 CIPROFLOXACIN HCL Inactive Advance Directives Directive Description Start Date PERMISSION TO SHARE Vital Signs Date Name Value Unit Range Description blood pressure, diastolic - 8462-4 60 mm[Hg] BP [place] blood pressure, systolic - 8480-6 132 mm[Hg] BP sys pulse rate E&M - 8867-4 63 /min Heart rate temperature E&M 95.9 [degF] Body temperature weight E&M - 3141-9 196 [lb_av] Weight Measured Encounters Code Encounter Date Provider Facility CPT-91640 Level 4 New Patient 12:24:11 CDT Nura Daniels MD [facility] CPT-06702 Level 3 Est. Patient 09:48:26 CDT Otilio Conti MD [facility] CPT-87291 Level 3 Est. Patient 11:15:26 CLAIM ADJUSTER Otilio Conti MD [facility] CPT-08294 Level 4 Est. Patient 22:49:29 CLAIM ADJUSTER Otilio Conti MD [facility] CPT-93168 Level 3 Est. Patient 17:11:11 CDT Otilio Conti MD [facility] CPT-14626 Level 4 New Patient 22:35:19 CDT Otilio Conti MD [facility] Procedures Code Procedure Name Date Entry Date Standard Description CPT-93196 Abd single AP View 09:56:56 CDT CPT-11388 Postop F/U Visit 11:15:26 CLAIM ADJUSTER CPT-08282 Abd single AP View 09:43:31 CLAIM ADJUSTER CPT-98217 Postop F/U Visit 11:03:49 CLAIM ADJUSTER CPT-21719 Bladder Scan 22:49:29 CLAIM ADJUSTER CPT-98189 Cystoscopy 22:49:29 CLAIM ADJUSTER CPT-13047 Urine Dip (Floor Use Only) 17:31:24 CLAIM ADJUSTER CPT-69212 Abd single AP View 16:29:57 CLAIM ADJUSTER CPT-22536 Urine Dip (Floor Use Only) 17:11:11 CDT CPT-38746 Abd single AP View 15:32:06 CDT CPT-96765 Bladder Scan 17:23:57 CLAIM ADJUSTER CPT-02327 Postop F/U Visit 17:23:57 CLAIM ADJUSTER CPT-98424 Urine Dip (Floor Use Only) 17:23:57 CLAIM ADJUSTER CPT-18370 Urine Dip (Floor Use Only) 09:34:16 CDT CPT-11895 Bladder Scan 09:34:16 CDT CPT-04659 Postop F/U Visit 09:34:16 CDT CPT-21854 Postop F/U Visit 21:34:52 CDT CPT-64332 Cystoscopy 22:35:19 CDT CPT-51161 Abd single AP View 11:03:03 CDT
--- OUTSIDE RECORDS SUMMARY | 2018-09-07 18:54 | XMS REPORT | Clinical Summary ---
Author Author Admin, JOHN Organization [facility] Address Unknown Phone Allergies, Adverse Reactions, Alerts Allergy Name Reaction [...] Active Otilio Conti MD Bladder neck obstruction Medication List Medication Instructions Start Date Stop Date Generic Name NDC Status Provider Patient Instruction MULTIMINERAL PLUS TABS 1 bid MULTIPLE VITAMINS-MINERALS 30499881895 Active Otilio Conti MD Active [facility] MILK THISTLE 175 MG CAPS 1 tab bid MILK THISTLE 24738297970 Active Otilio Conti MD Active CO Q 10 10 MG CAPS a tab bid COENZYME Q10 72971892858 Active Otilio Conti MD Active VERAPAMIL HCL 80 MG TABS 1 daily VERAPAMIL HCL 63810535760 Active Otilio Conti MD Active PRAVASTATIN SODIUM 40 MG TABS 1 daily PRAVASTATIN SODIUM 94825407914 Active Otilio Conti MD Active CIPRO 500 MG TAB 1 tablet by mouth twice daily CIPROFLOXACIN HCL 56503476930 No Longer Active Otilio Conti MD Active [facility] SAW PALMETTO 160 MG CAPS bid SAW PALMETTO (SERENOA REPENS ) 18918296456 No Longer Active Otilio Conti MD Active [facility] IBUPROFEN 200 MG TABS Take one by mouth daily IBUPROFEN 67690450500 Active Otilio Conti MD Active PRILOSEC OTC 20 MG TBEC Take one by mouth daily OMEPRAZOLE MAGNESIUM 96917199471 Active Otilio Conti MD Active ASPIRIN CHILDRENS 81 MG CHEW ASPIRIN 78243304062 Active Otilio Conti MD Active MENS MULTIVITAMIN PLUS TABS MULTIPLE VITAMINS-MINERALS 43346267093 Active Otilio Conti MD Active OMEGA 3 1000 MG CAPS bid OMEGA-3 FATTY ACIDS 60456305543 Active Otilio Conti MD Active NITROSTAT 0.4 MG SUBL 1 every 5 min for 3 doses prn chest pain NITROGLYCERIN 12733142595 Active Otilio Conti MD Active CALAN 80 MG TABS Take one by mouth daily VERAPAMIL HCL 28692183732 Active Otilio Conti MD Active ZOCOR 40 MG TABS Take one by mouth daily SIMVASTATIN 88555303360 Active Otilio Conti MD Active [facility] SAW PALMETTO 160 MG CAPS bid [facility] SAW PALMETTO 160 MG CAPS SAW PALMETTO (SERENOA REPENS) Inactive CIPRO 500 MG TAB 1 tablet by mouth twice daily CIPRO 500 MG TAB [id number] CIPROFLOXACIN HCL Inactive Advance Directives Directive Description Start Date PERMISSION TO SHARE Vital Signs Date Name Value Unit Range Description blood pressure, diastolic 72 mm[Hg] BP [place] blood pressure, systolic 120 mm[Hg] BP sys height E&M 67 [in_us] Bdy height temperature E&M 97.0 [degF] Body temperature weight E&M 201 [lb_av] Weight Measured blood pressure, diastolic 82 mm[Hg] BP [place] blood pressure, systolic 141 mm[Hg] BP sys height E&M 67 [in_us] Bdy height temperature E&M 97.1 [degF] Body temperature weight E&M 200 [lb_av] Weight Measured blood pressure, diastolic 78 mm[Hg] BP [place] blood pressure, systolic 119 mm[Hg] BP sys height E&M 67 [in_us] Bdy height pulse rate E&M 69 /min Heart rate temperature E&M 97.4 [degF] Body temperature weight E&M 200 [lb_av] Weight Measured blood pressure, diastolic 79 mm[Hg] BP [place] blood pressure, systolic 129 mm[Hg] BP sys height E&M 67 [in_us] Bdy height pulse rate E&M 56 /min Heart rate temperature E&M 96.8 [degF] Body temperature weight E&M 199.6 [lb_av] Weight Measured Diagnostic Results Date Name Value Unit Range Description Lab Report: Basic Metabolic Panel - Chemistry sodium, serum 140 mmol/L 220-150 2022/01/07 potassium, serum 4.0 mmol/L 3.5-5.2 chloride, serum 103 mmol/L 98-107 carbon dioxide, venous blood 26.4 mmol/L 21.0-32.0 blood glucose 118 mg/dL 65-110 calcium, serum 9.4 mg/dL 8.5-10.1 urea nitrogen, blood 17 mg/dL 7-18 creatinine, serum 1.00 mg/dL 0.60-1.30 Lab Report: CBC - Hematology leukocyte count, blood 6.4 10^3/MM^3 10*3/mm3 4.6-10.2 erythrocyte (RBC) count 5.32 10^6/MM^3 10*6/mm3 4.69-6.13 hemoglobin, blood 16.7 g/dL 13.5-17.5 hematocrit, blood 49.0 % 41.0-53.0 mean corpuscular volume, RBC 92 fL 80-97 mean corpuscular hemoglobin, RBC 31.3 pg 27.0-31.2 mean corpuscular hemoglobin concentration, RBC 34.0 G/DL % 31.8- 35.4 red blood cell distribution width 13.2 % 11.6-14.8 platelet count 204 10^3/MM^3 10*3/mm3 142-424 Office Visit: 2 week f/u kidney stone - Chemistry protein, total urine random negative mg/dL RBC, urine, dipstick 2+ Office Visit: 2 week f/u kidney stone - Urinalysis ketones, urine, by test strip negative bilirubin, urine negative glucose, urine, semiquantitative negative pH, urine, semiquantitative 5 specific gravity, urine 1.015 urinalysis, routine Clean Catch urine color yellow appearance, urine clear leukocyte esterase, urine, by dipstick 1+ nitrite, urine, semiquantitative negative urobilinogen, urine, semiquantitative (dipstick) negative protein, urine, semiquantitative (dipstick) negative Office Visit: Gross hematuria - Chemistry RBC, urine, dipstick negative protein, total urine random negative mg/dL Office Visit: Gross hematuria - Urinalysis ketones, urine, by test strip negative bilirubin, urine negative glucose, urine, semiquantitative negative pH, urine, semiquantitative 5 specific gravity, urine 1.025 urine color yellow appearance, urine clear leukocyte esterase, urine, by dipstick negative nitrite, urine, semiquantitative negative urobilinogen, urine, semiquantitative (dipstick) 0.2 protein, urine, semiquantitative (dipstick) negative Office Visit: Hematuria - Chemistry RBC, urine, dipstick 3+ Office Visit: Hematuria - Chemistry RBC, urine, dipstick non-hemolyzed moderate Office Visit: Hematuria - Chemistry protein, total urine random 1+ mg/dL Office Visit: Hematuria - Chemistry protein, total urine random 2+ mg/dL Office Visit: Hematuria - Urinalysis urinalysis, routine Clean Catch Office Visit: Hematuria - Urinalysis urinalysis, routine Clean Catch Office Visit: Hematuria - Urinalysis ketones, urine, by test strip negative bilirubin, urine negative glucose, urine, semiquantitative negative pH, urine, semiquantitative 5 specific gravity, urine 1.025 urine color yellow appearance, urine clear leukocyte esterase, urine, by dipstick negative nitrite, urine, semiquantitative negative urobilinogen, urine, semiquantitative (dipstick) 0.2 protein, urine, semiquantitative (dipstick) negative Office Visit: Hematuria - Urinalysis ketones, urine, by test strip negative bilirubin, urine negative glucose, urine, semiquantitative negative pH, urine, semiquantitative 5 specific gravity, urine 1.020 urine color red appearance, urine cloudy leukocyte esterase, urine, by dipstick negative nitrite, urine, semiquantitative negative urobilinogen, urine, semiquantitative (dipstick) 0.2 protein, urine, semiquantitative (dipstick) negative Encounters Code Encounter Date Provider Facility CPT-17120 Level 3 Est. Patient 11:15:26 ELEVATOR INSTALLER APPRENTICE Otilio Conti MD [facility] CPT-34101 Level 4 Est. Patient 22:49:29 ELEVATOR INSTALLER APPRENTICE Otilio Conti MD [facility] CPT-14075 Level 3 Est. Patient 17:11:11 CDT Otilio Conti MD [facility] CPT-14238 Level 4 New Patient 22:35:19 CDT Otilio Conti MD [facility] Procedures Code Procedure Name Date Entry Date Standard Description CPT-03027 Postop F/U Visit 11:15:26 ELEVATOR INSTALLER APPRENTICE CPT-25864 Abd single AP View 09:43:31 ELEVATOR INSTALLER APPRENTICE CPT-12454 Postop F/U Visit 11:03:49 ELEVATOR INSTALLER APPRENTICE CPT-70673 Bladder Scan 22:49:29 ELEVATOR INSTALLER APPRENTICE CPT-21110 Cystoscopy 22:49:29 ELEVATOR INSTALLER APPRENTICE CPT-30712 Urine Dip (Floor Use Only) 17:31:24 ELEVATOR INSTALLER APPRENTICE CPT-78376 Abd single AP View 16:29:57 ELEVATOR INSTALLER APPRENTICE CPT-19209 Urine Dip (Floor Use Only) 17:11:11 CDT CPT-66773 Abd single AP View 15:32:06 CDT CPT-30511 Bladder Scan 17:23:57 ELEVATOR INSTALLER APPRENTICE CPT-72535 Postop F/U Visit 17:23:57 ELEVATOR INSTALLER APPRENTICE CPT-15895 Urine Dip (Floor Use Only) 17:23:57 ELEVATOR INSTALLER APPRENTICE CPT-84891 Urine Dip (Floor Use Only) 09:34:16 CDT CPT-98751 Bladder Scan 09:34:16 CDT CPT-48371 Postop F/U Visit 09:34:16 CDT CPT-19613 Postop F/U Visit 21:34:52 CDT CPT-23656 Cystoscopy 22:35:19 CDT CPT-76601 Abd single AP View 11:03:03 CDT
--- OUTSIDE RECORDS SUMMARY | 2018-09-07 18:54 | XMS REPORT | Clinical Summary ---
Author Author Admin, JOHN Organization [facility] Address Unknown Phone Unavailable Allergies, Adverse [...] MULTIMINERAL PLUS TABS 1 bid MULTIPLE VITAMINS-MINERALS 01150216921 Active Otilio Conti MD Active [facility] MILK THISTLE 175 MG CAPS 1 tab bid MILK THISTLE 10531413292 Active Otilio Conti MD Active CO Q 10 10 MG CAPS a tab bid COENZYME Q10 21924863574 Active Otilio Conti MD Active VERAPAMIL HCL 80 MG TABS 1 daily VERAPAMIL HCL 16240320200 Active Otilio Conti MD Active PRAVASTATIN SODIUM 40 MG TABS 1 daily PRAVASTATIN SODIUM 45478133152 Active Otilio Conti MD Active CIPRO 500 MG TAB 1 tablet by mouth twice daily CIPROFLOXACIN HCL 96323953022 No Longer Active Otilio Conti MD Active [facility] SAW PALMETTO 160 MG CAPS bid SAW PALMETTO (SERENOA REPENS ) 65266190503 No Longer Active Otilio Conti MD Active [facility] IBUPROFEN 200 MG TABS Take one by mouth daily IBUPROFEN 83103558728 Active Otilio Conti MD Active PRILOSEC OTC 20 MG TBEC Take one by mouth daily OMEPRAZOLE MAGNESIUM 10314186716 Active tOilio Conti MD Active ASPIRIN CHILDRENS 81 MG CHEW ASPIRIN 95659365797 Active Otilio Conti MD Active MENS MULTIVITAMIN PLUS TABS MULTIPLE VITAMINS-MINERALS 47344488895 Active Otilio Conti MD Active OMEGA 3 1000 MG CAPS bid OMEGA-3 FATTY ACIDS 33417696751 Active Otilio Conti MD Active NITROSTAT 0.4 MG SUBL 1 every 5 min for 3 doses prn chest pain NITROGLYCERIN 58657596361 Active Otilio Conti MD Active CALAN 80 MG TABS Take one by mouth daily VERAPAMIL HCL 97400705619 Active Otilio Conti MD Active ZOCOR 40 MG TABS Take one by mouth daily SIMVASTATIN 26123938826 Active Otilio Conti MD Active [facility] SAW PALMETTO 160 MG CAPS bid [facility] SAW PALMETTO 160 MG CAPS SAW PALMETTO (SERENOA REPENS) Inactive CIPRO 500 MG TAB 1 tablet by mouth twice daily CIPRO 500 MG TAB 951909 CIPROFLOXACIN HCL Inactive Advance Directives Directive Description Start Date PERMISSION TO SHARE Encounters Code Encounter Date Provider Facility CPT-77261 Level 4 New Patient 12:24:11 CDT Nura Daniels MD [facility] CPT-19403 Level 3 Est. Patient 09:48:26 CDT Otilio Conti MD [facility] CPT-68753 Level 3 Est. Patient 11:15:26 POWER PLANT SUPERINTENDENT Otilio Conti MD [facility] CPT-45225 Level 4 Est. Patient 22:49:29 POWER PLANT SUPERINTENDENT Otilio Conti MD [facility] CPT-08091 Level 3 Est. Patient 17:11:11 CDT Otilio Conti MD [facility] CPT-14988 Level 4 New Patient 22:35:19 CDT Otilio Conti MD [facility] Procedures Code Procedure Name Date Entry Date Standard Description CPT-58196 Abd single AP View 09:56:56 CDT CPT-11330 Postop F/U Visit 11:15:26 POWER PLANT SUPERINTENDENT CPT-28038 Abd single AP View 09:43:31 POWER PLANT SUPERINTENDENT CPT-94588 Postop F/U Visit 11:03:49 POWER PLANT SUPERINTENDENT CPT-71832 Bladder Scan 22:49:29 POWER PLANT SUPERINTENDENT CPT-37007 Cystoscopy 22:49:29 POWER PLANT SUPERINTENDENT CPT-40744 Urine Dip (Floor Use Only) 17:31:24 POWER PLANT SUPERINTENDENT CPT-49482 Abd single AP View 16:29:57 POWER PLANT SUPERINTENDENT CPT-86369 Urine Dip (Floor Use Only) 17:11:11 CDT CPT-62107 Abd single AP View 15:32:06 CDT CPT-25399 Bladder Scan 17:23:57 POWER PLANT SUPERINTENDENT CPT-49787 Postop F/U Visit 17:23:57 POWER PLANT SUPERINTENDENT CPT-14245 Urine Dip (Floor Use Only) 17:23:57 POWER PLANT SUPERINTENDENT CPT-76492 Urine Dip (Floor Use Only) 09:34:16 CDT CPT-14518 Bladder Scan 09:34:16 CDT CPT-12077 Postop F/U Visit 09:34:16 CDT CPT-28435 Postop F/U Visit 21:34:52 CDT CPT-54149 Cystoscopy 22:35:19 CDT CPT-79679 Abd single AP View 11:03:03 CDT
--- OUTSIDE RECORDS SUMMARY | 2018-09-07 18:55 | XMS REPORT | Clinical Summary ---
Author Author Admin, JOHN Organization [facility] Address Unknown Phone Allergies, Adverse Reactions, Alerts [...] MULTIMINERAL PLUS TABS 1 bid MULTIPLE VITAMINS-MINERALS 41210810711 Active Otilio Conti MD Active [facility] MILK THISTLE 175 MG CAPS 1 tab bid MILK THISTLE 91141000095 Active Otilio Conti MD Active CO Q 10 10 MG CAPS a tab bid COENZYME Q10 95623431764 Active Otilio Conti MD Active VERAPAMIL HCL 80 MG TABS 1 daily VERAPAMIL HCL 32251338880 Active Otilio Conti MD Active PRAVASTATIN SODIUM 40 MG TABS 1 daily PRAVASTATIN SODIUM 13197699883 Active Otilio Conti MD Active CIPRO 500 MG TAB 1 tablet by mouth twice daily CIPROFLOXACIN HCL 94812032744 No Longer Active Otilio Conti MD Active [facility] SAW PALMETTO 160 MG CAPS bid SAW PALMETTO (SERENOA REPENS ) 87699929166 No Longer Active Otilio Conti MD Active [facility] IBUPROFEN 200 MG TABS Take one by mouth daily IBUPROFEN 87685286278 Active Otilio Conti MD Active PRILOSEC OTC 20 MG TBEC Take one by mouth daily OMEPRAZOLE MAGNESIUM 81880346058 Active Otilio Conti MD Active ASPIRIN CHILDRENS 81 MG CHEW ASPIRIN 55539554032 Active Otilio Conti MD Active MENS MULTIVITAMIN PLUS TABS MULTIPLE VITAMINS-MINERALS 98673390325 Active Otilio Conti MD Active OMEGA 3 1000 MG CAPS bid OMEGA-3 FATTY ACIDS 35075489151 Active Otilio Conti MD Active NITROSTAT 0.4 MG SUBL 1 every 5 min for 3 doses prn chest pain NITROGLYCERIN 19015821727 Active Otilio Conti MD Active CALAN 80 MG TABS Take one by mouth daily VERAPAMIL HCL 22021684369 Active Otilio Conti MD Active ZOCOR 40 MG TABS Take one by mouth daily SIMVASTATIN 06580758418 Active Otilio Conti MD Active [facility] SAW PALMETTO 160 MG CAPS bid [facility] SAW PALMETTO 160 MG CAPS SAW PALMETTO (SERENOA REPENS) Inactive CIPRO 500 MG TAB 1 tablet by mouth twice daily CIPRO 500 MG TAB 209601 CIPROFLOXACIN HCL Inactive Advance Directives Directive Description [...] Panel - Chemistry sodium, serum 140 mmol/L 666-033 8870/01/07 potassium, serum 4.0 mmol/L 3.5-5.2 chloride, serum [...] negative Encounters Code Encounter Date Provider Facility CPT-71298 Level 3 Est. Patient 11:15:26 INK TECHNICIAN Otilio Conti MD [facility] CPT-17625 Level 4 Est. Patient 22:49:29 INK TECHNICIAN Otilio Conti MD [facility] CPT-38615 Level 3 Est. Patient 17:11:11 CDT Otilio Conti MD [facility] CPT-29073 Level 4 New Patient 22:35:19 CDT Otilio Conti MD [facility] Procedures Code Procedure Name Date Entry Date Standard Description CPT-66266 Postop F/U Visit 11:15:26 INK TECHNICIAN CPT-71058 Abd single AP View 09:43:31 INK TECHNICIAN CPT-84698 Postop F/U Visit 11:03:49 INK TECHNICIAN CPT-92104 Bladder Scan 22:49:29 INK TECHNICIAN CPT-71542 Cystoscopy 22:49:29 INK TECHNICIAN CPT-53381 Urine Dip (Floor Use Only) 17:31:24 INK TECHNICIAN CPT-02451 Abd single AP View 16:29:57 INK TECHNICIAN CPT-00098 Urine Dip (Floor Use Only) 17:11:11 CDT CPT-10732 Abd single AP View 15:32:06 CDT CPT-46993 Bladder Scan 17:23:57 INK TECHNICIAN CPT-40113 Postop F/U Visit 17:23:57 INK TECHNICIAN CPT-79020 Urine Dip (Floor Use Only) 17:23:57 INK TECHNICIAN CPT-96150 Urine Dip (Floor Use Only) 09:34:16 CDT CPT-16199 Bladder Scan 09:34:16 CDT CPT-55062 Postop F/U Visit 09:34:16 CDT CPT-98323 Postop F/U Visit 21:34:52 CDT CPT-85749 Cystoscopy 22:35:19 CDT CPT-91389 Abd single AP View 11:03:03 CDT
--- OUTSIDE RECORDS SUMMARY | 2018-09-07 18:55 | XMS REPORT | Clinical Summary ---
Author Author Admin, JOHN Organization [facility] Address Unknown Phone Allergies, Adverse Reactions, [...] MULTIMINERAL PLUS TABS 1 bid MULTIPLE VITAMINS-MINERALS 64838480418 Active Otilio Conti MD Active [facility] MILK THISTLE 175 MG CAPS 1 tab bid MILK THISTLE 62535729731 Active Otilio Conti MD Active CO Q 10 10 MG CAPS a tab bid COENZYME Q10 26503767816 Active Otilio Conti MD Active VERAPAMIL HCL 80 MG TABS 1 daily VERAPAMIL HCL 09948055638 Active Otilio Conti MD Active PRAVASTATIN SODIUM 40 MG TABS 1 daily PRAVASTATIN SODIUM 11708106045 Active Otilio Conti MD Active CIPRO 500 MG TAB 1 tablet by mouth twice daily CIPROFLOXACIN HCL 87201715865 No Longer Active Otilio Conti MD Active [facility] SAW PALMETTO 160 MG CAPS bid SAW PALMETTO (SERENOA REPENS ) 75119814467 No Longer Active Otilio Conti MD Active [facility] IBUPROFEN 200 MG TABS Take one by mouth daily IBUPROFEN 85419164561 Active Otilio Conti MD Active PRILOSEC OTC 20 MG TBEC Take one by mouth daily OMEPRAZOLE MAGNESIUM 94184262103 Active Otilio Conti MD Active ASPIRIN CHILDRENS 81 MG CHEW ASPIRIN 41257557078 Active Otilio Conti MD Active MENS MULTIVITAMIN PLUS TABS MULTIPLE VITAMINS-MINERALS 91682357403 Active Otilio Conti MD Active OMEGA 3 1000 MG CAPS bid OMEGA-3 FATTY ACIDS 40143517943 Active Otilio Conti MD Active NITROSTAT 0.4 MG SUBL 1 every 5 min for 3 doses prn chest pain NITROGLYCERIN 47580288248 Active Otilio Conti MD Active CALAN 80 MG TABS Take one by mouth daily VERAPAMIL HCL 33263616497 Active Otilio Conti MD Active ZOCOR 40 MG TABS Take one by mouth daily SIMVASTATIN 84835089104 Active Otilio Conti MD Active [facility] SAW PALMETTO 160 MG CAPS bid [facility] SAW PALMETTO 160 MG CAPS SAW PALMETTO (SERENOA REPENS) Inactive CIPRO 500 MG TAB 1 tablet by mouth twice daily CIPRO 500 MG TAB 810860 CIPROFLOXACIN HCL Inactive Advance Directives Directive Description Start Date PERMISSION TO SHARE Vital Signs Date Name Value Unit Range Description blood pressure, diastolic - 8462-4 80 mm[Hg] BP [place] blood pressure, systolic - 8480-6 130 mm[Hg] BP sys height E&M - 8302-2 67 [in_us] Bdy height pulse rate E&M - 8867-4 59 /min Heart rate temperature E&M 96.1 [degF] Body temperature weight E&M - 3141-9 192 [lb_av] Weight Measured blood pressure, diastolic - 8462-4 72 mm[Hg] BP [place] blood pressure, systolic - 8480-6 120 mm[Hg] BP sys height E&M - 8302-2 67 [in_us] Bdy height temperature E&M 97.0 [degF] Body temperature weight E&M - 3141-9 201 [lb_av] Weight Measured blood pressure, diastolic - 8462-4 82 mm[Hg] BP [place] blood pressure, systolic - 8480-6 141 mm[Hg] BP sys height E&M - 8302-2 67 [in_us] Bdy height temperature E&M 97.1 [degF] Body temperature weight E&M - 3141-9 200 [lb_av] Weight Measured blood pressure, diastolic - 8462-4 78 mm[Hg] BP [place] blood pressure, systolic - 8480-6 119 mm[Hg] BP sys height E&M - 8302-2 67 [in_us] Bdy height pulse rate E&M - 8867-4 69 /min Heart rate temperature E&M 97.4 [degF] Body temperature weight E&M - 3141-9 200 [lb_av] Weight Measured blood pressure, diastolic - 8462-4 79 mm[Hg] BP [place] blood pressure, systolic - 8480-6 129 mm[Hg] BP sys height E&M - 8302-2 67 [in_us] Bdy height pulse rate E&M - 8867-4 56 /min Heart rate temperature E&M 96.8 [degF] Body temperature weight E&M - 3141-9 199.6 [lb_av] Weight Measured Diagnostic Results Date Name Value Unit Range Description Lab Report: Basic Metabolic Panel - Chemistry sodium, serum 140 mmol/L 067-050 2193/01/07 potassium, serum 4.0 mmol/L 3.5-5.2 chloride, serum [...] protein, urine, semiquantitative (dipstick) negative Office Visit: f/u hematuria - Chemistry RBC, urine, dipstick negative protein, total urine random negative mg/dL Office Visit: f/u hematuria - Urinalysis urinalysis, routine Clean Catch ketones, urine, by test strip negative bilirubin, urine negative glucose, urine, semiquantitative negative pH, urine, semiquantitative 5 specific gravity, urine 1.030 urine color yellow appearance, urine clear leukocyte [...] Hematuria - Chemistry RBC, urine, dipstick 3+ protein, total urine random 1+ mg/dL Office Visit: Hematuria - Chemistry protein, total urine random 2+ mg/dL RBC, urine, dipstick non-hemolyzed moderate Office Visit: Hematuria - Urinalysis ketones, urine, by test strip negative bilirubin, urine negative glucose, urine, semiquantitative negative pH, urine, semiquantitative 5 specific gravity, urine 1.025 urine color yellow appearance, urine clear leukocyte esterase, urine, by dipstick negative nitrite, urine, semiquantitative negative urobilinogen, urine, semiquantitative (dipstick) 0.2 protein, urine, semiquantitative (dipstick) negative urinalysis, routine Clean Catch Office Visit: Hematuria - Urinalysis urinalysis, routine Clean Catch ketones, urine, by test strip negative bilirubin, urine negative glucose, urine, semiquantitative negative pH, urine, semiquantitative 5 specific gravity, urine 1.020 urine color red appearance, urine cloudy leukocyte esterase, urine, by dipstick negative nitrite, urine, semiquantitative negative urobilinogen, urine, semiquantitative (dipstick) 0.2 protein, urine, semiquantitative (dipstick) negative Encounters Code Encounter Date Provider Facility CPT-78520 Level 3 Est. Patient 09:48:26 CDT Otilio Conti MD [facility] CPT-95472 Level 3 Est. Patient 11:15:26 ORTHOPAEDIC DOCTOR Otilio Conti MD [facility] CPT-97727 Level 4 Est. Patient 22:49:29 ORTHOPAEDIC DOCTOR Otilio Conti MD [facility] CPT-85722 Level 3 Est. Patient 17:11:11 CDT Otilio Conti MD [facility] CPT-09772 Level 4 New Patient 22:35:19 CDT Otilio Conti MD [facility] Procedures Code Procedure Name Date Entry Date Standard Description CPT-77676 Abd single AP View 09:56:56 CDT CPT-60095 Postop F/U Visit 11:15:26 ORTHOPAEDIC DOCTOR CPT-28249 Abd single AP View 09:43:31 ORTHOPAEDIC DOCTOR CPT-01399 Postop F/U Visit 11:03:49 ORTHOPAEDIC DOCTOR CPT-95107 Bladder Scan 22:49:29 ORTHOPAEDIC DOCTOR CPT-91490 Cystoscopy 22:49:29 ORTHOPAEDIC DOCTOR CPT-00605 Urine Dip (Floor Use Only) 17:31:24 ORTHOPAEDIC DOCTOR CPT-84991 Abd single AP View 16:29:57 ORTHOPAEDIC DOCTOR CPT-89752 Urine Dip (Floor Use Only) 17:11:11 CDT CPT-58521 Abd single AP View 15:32:06 CDT CPT-26642 Bladder Scan 17:23:57 ORTHOPAEDIC DOCTOR CPT-68801 Postop F/U Visit 17:23:57 ORTHOPAEDIC DOCTOR CPT-73996 Urine Dip (Floor Use Only) 17:23:57 ORTHOPAEDIC DOCTOR CPT-96562 Urine Dip (Floor Use Only) 09:34:16 CDT CPT-63891 Bladder Scan 09:34:16 CDT CPT-06651 Postop F/U Visit 09:34:16 CDT CPT-59214 Postop F/U Visit 21:34:52 CDT CPT-67162 Cystoscopy 22:35:19 CDT CPT-38842 Abd single AP View 11:03:03 CDT
--- OUTSIDE RECORDS SUMMARY | 2018-09-07 18:56 | XMS REPORT | CCD ---
Author Author GONZÁLEZ TOVAR Unknown Address [address] [facility] [address] [place], [place] [id number] Care Team Providers Care Scrap Wheeler Name Role Phone CRISTAL GUZMÁN, AISHWARYA WOODS Attphys F., JOSE NASST M., YUKI NASST C., LISANDRO NASST K., ALISIA NASST H., EMILY NASST B., PAMELA NASST R., ALICIA NASST S., KENNETH NASST M., EDWARD NASST D., NHI L NASST M., JOSE S NASST B., GLADIS NASST S., ISSA NASST Vital Signs Vital Sign Value Unit Weight Measured 200 lbs Height 66 in BMI (Body Mass Index) 32.28 kg/m^2 BSA (Body Surface Area) 2.06 m^2 BP Systolic 117 mmHg BP Diastolic 76 mmHg BP Systolic 122 mmHg BP Diastolic 76 mmHg BP Systolic 102 mmHg BP Diastolic 62 mmHg BP Systolic 95 mmHg BP Diastolic 62 mmHg BP Systolic 104 mmHg BP Diastolic 59 mmHg BP Systolic 100 mmHg BP Diastolic 58 mmHg BP Systolic 123 mmHg BP Diastolic 69 mmHg BP Systolic 128 mmHg BP Diastolic 78 mmHg BP Systolic 108 mmHg BP Diastolic 67 mmHg BP Systolic 106 mmHg BP Diastolic 66 mmHg BP Systolic 137 mmHg BP Diastolic 99 mmHg BP Systolic 121 mmHg BP Diastolic 81 mmHg BP Systolic 116 mmHg BP Diastolic 74 mmHg BP Systolic 124 mmHg BP Diastolic 77 mmHg BP Systolic 119 mmHg BP Diastolic 75 mmHg BP Systolic 120 mmHg BP Diastolic 79 mmHg BP Systolic 120 mmHg BP Diastolic 79 mmHg BP Systolic 100 mmHg BP Diastolic 64 mmHg BP Systolic 105 mmHg BP Diastolic 58 mmHg Respiratory Rate 18 bpm Respiratory Rate 18 bpm Respiratory Rate 18 bpm Respiratory Rate 18 bpm Respiratory Rate 18 bpm Respiratory Rate 16 bpm Respiratory Rate 18 bpm Respiratory Rate 18 bpm Respiratory Rate 18 bpm Respiratory Rate 18 bpm Respiratory Rate 16 bpm Respiratory Rate 16 bpm Respiratory Rate 16 bpm Respiratory Rate 16 bpm Respiratory Rate 16 bpm Respiratory Rate 16 bpm Respiratory Rate 16 bpm Respiratory Rate 16 bpm Respiratory Rate 18 bpm Heart Rate 59 bpm Heart Rate 65 bpm Heart Rate 72 bpm Heart Rate 69 bpm Heart Rate 75 bpm Heart Rate 61 bpm Heart Rate 66 bpm Heart Rate 65 bpm Heart Rate 82 bpm Heart Rate 70 bpm Heart Rate 63 bpm Heart Rate 67 bpm Heart Rate 74 bpm Heart Rate 76 bpm Heart Rate 71 bpm Heart Rate 77 bpm Heart Rate 68 bpm Heart Rate 68 bpm Heart Rate 72 bpm O2 % BldC Oximetry 94 % O2 % BldC Oximetry 94 % O2 % BldC Oximetry 95 % O2 % BldC Oximetry 93 % O2 % BldC Oximetry 93 % O2 % BldC Oximetry 96 % O2 % BldC Oximetry 97 % O2 % BldC Oximetry 95 % O2 % BldC Oximetry 94 % O2 % BldC Oximetry 95 % O2 % BldC Oximetry 94 % O2 % BldC Oximetry 93 % O2 % BldC Oximetry 93 % O2 % BldC Oximetry 93 % O2 % BldC Oximetry 94 % O2 % BldC Oximetry 95 % O2 % BldC Oximetry 94 % O2 % BldC Oximetry 95 % O2 % BldC Oximetry 95 % Body Temperature 96.3 degrees Body Temperature 96 degrees Body Temperature 97.4 degrees Body Temperature 96.4 degrees Body Temperature 96.7 degrees Body Temperature 97.6 degrees Body Temperature 97.8 degrees Body Temperature 97.9 degrees Body Temperature 97.3 degrees Body Temperature 97.5 degrees Body Temperature 96.3 degrees Body Temperature 97.7 degrees Body Temperature 96.4 degrees Body Temperature 96.4 degrees Body Temperature 97 degrees Body Temperature 96.6 degrees Body Temperature 96.7 degrees Body Temperature 97.5 degrees Body Temperature 97.4 degrees Body Temperature 98.1 degrees Allergies Allergy Code Allergy Type Reaction Status BEE STINGS {Clinical monitoring unavailable} 0 Allergy to substance (disorder) Active MORPHINE 0 Drug allergy (disorder) Active LORTAB 0 Drug allergy (disorder) Active HYDROCODONE 0 Drug allergy (disorder) Active Procedures Unknown. History of Immunizations Immunization Code Date pneumococcal polysaccharide PPV23 33 01/17/2014 Influenza, seasonal, injectable 141 08/14/2013 Problems Problem Code Start Date Resolved Date Status Degenerative joint disease involving knee 183529417 2014 Active Status post knee replacement 257648173 2014 Active Post op pain 537132134 2014 Active Results CBC W/ AUTO DIFF (RFLX MAN DIFF IF IND) Test Name Code Test Result Test Units Test Date/ Time WBC 94727-0 10.9000 TH/CMM 01/17/2014 05:40 RBC 789-8 4.4600 ML/CMM 01/17/2014 05:40 HGB 718-7 13.2000 G/DL 01/17/2014 05:40 HCT 4544-3 39.5000 % 01/17/2014 05:40 MCV 89.0000 FL 01/17/2014 05:40 MCH 29.6000 PG 01/17/2014 05:40 MCHC 33.4000 G/DL 01/17/2014 05:40 RDW SD 43.0000 FL 01/17/2014 05:40 RDW CV 13.2000 % 01/17/2014 05:40 MPV 10.8000 FL 01/17/2014 05:40 PLT 777-3 188.0000 TH/CMM 01/17/2014 05:40 NRBC# 0.0000 TH/CMM 01/17/2014 05:40 NRBC% 0.0000 /100WBC 01/17/2014 05:40 %NEUT 80.2000 % 01/17/2014 05:40 %LYMP 10.1000 % 01/17/2014 05:40 %MONO 9.6000 % 01/17/2014 05:40 %EOS 0.0000 % 01/17/2014 05:40 %BASO 0.1000 % 01/17/2014 05:40 #NEUT 8.7600 TH/CMM 01/17/2014 05:40 #LYMP 1.1000 TH/CMM 01/17/2014 05:40 #MONO 1.0500 TH/CMM 01/17/2014 05:40 #EOS 0.0000 TH/CMM 01/17/2014 05:40 #BASO 0.0100 TH/CMM 01/17/2014 05:40 MANUAL DIFF NOT IND N/A 01/17/2014 05:40 CBC W/ AUTO DIFF (RFLX MAN DIFF IF IND) Test Name Code Test Result Test Units Test Date/ Time WBC 72871-4 6.9000 TH/CMM 01/18/2014 06:15 RBC 789-8 3.8900 ML/CMM 01/18/2014 06:15 HGB 718-7 11.6000 G/DL 01/18/2014 06:15 HCT 4544-3 34.6000 % 01/18/2014 06:15 MCV 89.0000 FL 01/18/2014 06:15 MCH 29.8000 PG 01/18/2014 06:15 MCHC 33.5000 G/DL 01/18/2014 06:15 RDW SD 43.0000 FL 01/18/2014 06:15 RDW CV 13.3000 % 01/18/2014 06:15 MPV 10.4000 FL 01/18/2014 06:15 PLT 777-3 149.0000 TH/CMM 01/18/2014 06:15 NRBC# 0.0000 TH/CMM 01/18/2014 06:15 NRBC% 0.0000 /100WBC 01/18/2014 06:15 %NEUT 59.9000 % 01/18/2014 06:15 %LYMP 20.7000 % 01/18/2014 06:15 %MONO 14.8000 % 01/18/2014 06:15 %EOS 4.2000 % 01/18/2014 06:15 %BASO 0.4000 % 01/18/2014 06:15 #NEUT 4.1300 TH/CMM 01/18/2014 06:15 #LYMP 1.4300 TH/CMM 01/18/2014 06:15 #MONO 1.0200 TH/CMM 01/18/2014 06:15 #EOS 0.2900 TH/CMM 01/18/2014 06:15 #BASO 0.0300 TH/CMM 01/18/2014 06:15 MANUAL DIFF NOT IND N/A 01/18/2014 06:15 Medications Medication Code Dose Units Frequency Route Modification Start Date/Time Stop Date/Time LR 1000ML IV [PREDEFINED] 315553 CONT IV IV 2014 15:58 ~~ LR 1000 ML (7953) IV BAG 408113 1361 ML ONDANSETRON [ZOFRAN] INJ 4 MG/2 ML VIAL 599573 4 MG PRN SIVP 2014 15:59 MILK OF MAGNESIA:12OZ 217759 30 ML PRN PO 2014 15:59 BISACODYL [DULCOLAX] SUPP : 10 MG 638188 10 MG PRN RECTALLY 2014 15:59 TEMAZEPAM [RESTORIL] CAPSULE : 7.5 MG 702821 1 EA PRN PO 2014 15:59 DIPHENHYDRAMINE (BENADRYL) CAP : 50 MG 2441661 50 MG PRN PO 2014 15:59 DIPHENHYDRAMINE (BENADRYL)INJ : 50MG/ML 9993083 50 MG PRN SIVP 2014 15:59 VITAMIN (LH SUB FOR ALL MULTIVITAMINS) 274017 1 TAB BID PO 2014 16:00 ASCORBIC ACID [VITAMIN C] TAB : 500 MG 717459 500 MG DAILY PO 2014 16:00 FERROUS SULFATE 325MG TABLET 179385 325 MG BID PO 2014 16:00 DOCUSATE SODIUM 100 MG [COLACE] CAPSULE 5566459 100 MG BID PO 2014 16:00 TAMSULOSIN [FLOMAX] CAP: 0.4MG 739455 0.4 MG DAILY PO 01/17/2014 09:00 HYDROmorphone SYR(DILAUDID)SYR:2MG/ML 891946 1 MG PRN IV 2014 16:01 PERCOCET 5/325 MG TABLET (ROXICET) 4305553 1 TAB PRN PO 2014 16:01 CELECOXIB [CELEBREX] CAPSULE : 200 MG 985525 200 MG BID PO 2014 21:00 RIVAROXABAN [XARELTO] TABLET : 10MG 3454084 10 MG DAILY PO 01/18/2014 09:00 ASPIRIN [CHEWABLE] TAB : 81MG 036478 81 MG DAILYM PO 2014 16:03 NF-COENZYME Q10 LIQ CAP 100MG 82851607673 100 MG BID PO 2014 16:05 NF-MILK THISTLE TABLET 200MG 511565 200 MG BID PO 2014 16:06 PATIENTS OWN MEDS 42385748542 1 EA BID PO 2014 16:07 SIMVASTATIN [ZOCOR] TABLET: 20 MG 619182 20 MG HS PO 2014 16:08 PANTOPRAZOLE [PROTONIX] TABLET : 20 MG 423759 20 MG DAILY PO 2014 16:08 VERAPAMIL [CALAN] TABLET : 80 MG 305909 80 MG BID PO 2014 21:00 NF-MULTIMINERALS TABLET 1725170 1 EA BID PO 2014 17:19 Verapamil HCl 80MG Oral Tablet 837601 80 MILLIGRAMS TWO TIMES A DAY ORAL 01/18/2014 10:51 Prilosec 20MG Oral Capsule, Delayed Release 202237 20 MILLIGRAMS DAILY ORAL 01/18/2014 10:51 Pravastatin 40MG Oral Tablet 260765 40 MILLIGRAMS DAILY ORAL 01/18/2014 10:51 PHYTONUTRIENTS 0 1 EACH TWO TIMES A DAY ORAL 01/18/2014 10:51 Multivitamin Oral Tablet 253594 1 EACH TWO TIMES A DAY ORAL 01/18/2014 10:51 Ibuprofen 200MG Oral Tablet 720258 200 MILLIGRAMS NEEDED ORAL 01/18/2014 10:51 Multiminerals 120MG-0.5MG-0.075MG- Oral Tablet 2992905 1 EACH TWO TIMES A DAY ORAL 01/18/2014 10:51 Milk Thistle 200MG Oral Tablet 642393 1 TABLET TWO TIMES A DAY ORAL 01/18/2014 10:51 Coenzyme Q-10 100MG Oral Tablet 600644 1 TABLET TWO TIMES A DAY ORAL 01/18/2014 10:51 Aspirin 81MG Oral Tablet 355235 81 MILLIGRAMS DAILY ORAL 01/18/2014 10:51 Docusate Sodium 100MG Oral Capsule 8959625 100 MILLIGRAMS TWO TIMES A DAY BY MOUTH 01/18/2014 10:51 Oxycodone And Acetaminophen 325MG-5MG Oral Tablet 4447623 1 TABLET NEEDED BY MOUTH 01/18/2014 10:51 Xarelto 10MG Oral Tablet 0273414 10 MILLIGRAMS DAILY BY MOUTH 01/18/2014 10:51 Aspirin 325MG Oral Tablet, Enteric Coated 375186 1 TABLET DAILY BY MOUTH 01/18/2014 10:55 Pravastatin 40MG Oral Tablet 090191 40 MILLIGRAMS DAILY ORAL Verapamil HCl 80MG Oral Tablet 235283 80 MILLIGRAMS TWO TIMES A DAY ORAL Aspirin 81MG Oral Tablet 637883 81 MILLIGRAMS DAILY ORAL Prilosec 20MG Oral Capsule, Delayed Release 731196 20 MILLIGRAMS DAILY ORAL Coenzyme Q-10 100MG Oral Tablet 465567 1 TABLET TWO TIMES A DAY ORAL Milk Thistle 200MG Oral Tablet 568512 1 TABLET TWO TIMES A DAY ORAL Multivitamin Oral Tablet 858180 1 EACH TWO TIMES A DAY ORAL Multiminerals 120MG-0.5MG-0.075MG- Oral Tablet 2840665 1 EACH TWO TIMES A DAY ORAL PHYTONUTRIENTS 0 1 EACH TWO TIMES A DAY ORAL Ibuprofen 200MG Oral Tablet 784290 200 MILLIGRAMS NEEDED ORAL Ibuprofen 200MG Oral Tablet 251843 200 MILLIGRAMS NEEDED ORAL PHYTONUTRIENTS 0 1 EACH TWO TIMES A DAY ORAL Multiminerals 120MG-0.5MG-0.075MG- Oral Tablet 0571033 1 EACH TWO TIMES A DAY ORAL Multivitamin Oral Tablet 089305 1 EACH TWO TIMES A DAY ORAL Milk Thistle 200MG Oral Tablet 768353 1 TABLET TWO TIMES A DAY ORAL Coenzyme Q-10 100MG Oral Tablet 231715 1 TABLET TWO TIMES A DAY ORAL Prilosec 20MG Oral Capsule, Delayed Release 194987 20 MILLIGRAMS DAILY ORAL Aspirin 81MG Oral Tablet 282326 81 MILLIGRAMS DAILY ORAL Verapamil HCl 80MG Oral Tablet 022865 80 MILLIGRAMS TWO TIMES A DAY ORAL Pravastatin 40MG Oral Tablet 854791 40 MILLIGRAMS DAILY ORAL Medications Administered Medication Dose Units Frequency Route Date/ Time of Last Dose LR 1000ML IV [PREDEFINED] CONT IV IV 2014 20:26 CEFAZOLIN [ANCEF] IV 2GM (PREDEFINED) Q6H IVPB 01/17/2014 05:57 VITAMIN (LH SUB FOR ALL MULTIVITAMINS) 1 TAB BID PO 01/18/2014 07:56 ASCORBIC ACID [VITAMIN C] TAB : 500 MG 500 MG DAILY PO 01/18/2014 07:56 FERROUS SULFATE 325MG TABLET 325 MG BID PO 01/18/2014 07:56 DOCUSATE SODIUM 100 MG [COLACE] CAPSULE 100 MG BID PO 01/18/2014 07:56 TAMSULOSIN [FLOMAX] CAP: 0.4MG 0.4 MG DAILY PO 01/18/2014 07:56 PERCOCET 5/325 MG TABLET (ROXICET) 2 TAB PRN PO 01/18/2014 12:27 CELECOXIB [CELEBREX] CAPSULE : 200 MG 200 MG BID PO 01/18/2014 07:56 RIVAROXABAN [XARELTO] TABLET : 10MG 10 MG DAILY PO 01/18/2014 07:56 ASPIRIN [CHEWABLE] TAB : 81MG 81 MG DAILYM PO 01/17/2014 08:25 SIMVASTATIN [ZOCOR] TABLET: 20 MG 20 MG HS PO 01/17/2014 21:15 PANTOPRAZOLE [PROTONIX] TABLET : 20 MG 20 MG DAILY PO 01/18/2014 07:56 VERAPAMIL [CALAN] TABLET : 80 MG 80 MG BID PO 01/18/2014 07:56 PNEUMOCOCCAL VACCINE(PNU-IMUNE/PNEUMOVAX 0.5 ML X1 IM 01/17/2014 12:46 Encounters Encounter Diagnosis Diagnosis Code Start Date LOC OSTEOARTH NOS-L LEG 26062 2014 Social History Smoking Status Code Start Date End Date Never smoker [id number] Patient Decision Aids Patient Decision Aid Non-pharmacological Pain Management Therapies for Adults Pain Management and Opioids Instructions You were admitted to [facility] on 2014 with a principle diagnosis of LOC OSTEOARTH NOS-L LEG. You had the following procedures done: TOTAL KNEE REPLACEMENT VACCINATION NEC ANESTH INJEC PERIPH NERV You were discharged from [facility] on 01/18/2014. Should you have any questions prior to discharge, please contact a member of your healthcare team. If you have left the hospital and have any questions, please contact your primary care physician. HOME MEDICATION INSTRUCTIONS: START ASPRIN 325 MG 24 HOURS AFTER LAST XARELTO CHIEF COMPLAINT: C/O PAIN IN KNEE Chief Complaint and Reason For Visit Chief Complaint Date of Onset ORT TOTAL KNEE RT Function Status Unknown. Referral/Transition of Care Unknown.
--- OUTSIDE RECORDS SUMMARY | 2018-09-07 18:57 | XMS REPORT | Clinical Summary ---
Author Author Admin, JOHN Organization [facility] Address Unknown Phone Allergies, Adverse Reactions, [...] MULTIMINERAL PLUS TABS 1 bid MULTIPLE VITAMINS-MINERALS 49478139292 Active Otilio Conti MD Active [facility] MILK THISTLE 175 MG CAPS 1 tab bid MILK THISTLE 91295247127 Active Otilio Conti MD Active CO Q 10 10 MG CAPS a tab bid COENZYME Q10 84261161849 Active Otilio Conti MD Active VERAPAMIL HCL 80 MG TABS 1 daily VERAPAMIL HCL 64023070787 Active Otilio Conti MD Active PRAVASTATIN SODIUM 40 MG TABS 1 daily PRAVASTATIN SODIUM 19794457823 Active Otilio Conti MD Active CIPRO 500 MG TAB 1 tablet by mouth twice daily CIPROFLOXACIN HCL 78190697203 No Longer Active Otilio Conti MD Active [facility] SAW PALMETTO 160 MG CAPS bid SAW PALMETTO (SERENOA REPENS ) 50872445942 No Longer Active Otilio Conti MD Active [facility] IBUPROFEN 200 MG TABS Take one by mouth daily IBUPROFEN 63724270063 Active Otilio Conti MD Active PRILOSEC OTC 20 MG TBEC Take one by mouth daily OMEPRAZOLE MAGNESIUM 08331015366 Active Otilio Conti MD Active ASPIRIN CHILDRENS 81 MG CHEW ASPIRIN 45089287450 Active Otilio Conti MD Active MENS MULTIVITAMIN PLUS TABS MULTIPLE VITAMINS-MINERALS 65401420170 Active Otilio Conti MD Active OMEGA 3 1000 MG CAPS bid OMEGA-3 FATTY ACIDS 78646775168 Active Otilio Conti MD Active NITROSTAT 0.4 MG SUBL 1 every 5 min for 3 doses prn chest pain NITROGLYCERIN 55719400693 Active Otilio Conti MD Active CALAN 80 MG TABS Take one by mouth daily VERAPAMIL HCL 64427253245 Active Otilio Conti MD Active ZOCOR 40 MG TABS Take one by mouth daily SIMVASTATIN 58968061176 Active Otilio Conti MD Active [facility] SAW PALMETTO 160 MG CAPS bid [facility] SAW PALMETTO 160 MG CAPS SAW PALMETTO (SERENOA REPENS) Inactive CIPRO 500 MG TAB 1 tablet by mouth twice daily CIPRO 500 MG TAB 995181 CIPROFLOXACIN HCL Inactive Advance Directives Directive Description [...] Panel - Chemistry sodium, serum 140 mmol/L 085-745 8910/01/07 potassium, serum 4.0 mmol/L 3.5-5.2 chloride, serum [...] negative Encounters Code Encounter Date Provider Facility CPT-83735 Level 3 Est. Patient 09:48:26 CDT Otilio Conti MD [facility] CPT-73965 Level 3 Est. Patient 11:15:26 EDUCATIONAL RECRUITER Otilio Conti MD [facility] CPT-56817 Level 4 Est. Patient 22:49:29 EDUCATIONAL RECRUITER Otilio Conti MD [facility] CPT-52368 Level 3 Est. Patient 17:11:11 CDT Otilio Conti MD [facility] CPT-60390 Level 4 New Patient 22:35:19 CDT Otilio Conti MD [facility] Procedures Code Procedure Name Date Entry Date Standard Description CPT-46007 Abd single AP View 09:56:56 CDT CPT-39790 Postop F/U Visit 11:15:26 EDUCATIONAL RECRUITER CPT-00918 Abd single AP View 09:43:31 EDUCATIONAL RECRUITER CPT-62852 Postop F/U Visit 11:03:49 EDUCATIONAL RECRUITER CPT-70145 Bladder Scan 22:49:29 EDUCATIONAL RECRUITER CPT-72611 Cystoscopy 22:49:29 EDUCATIONAL RECRUITER CPT-07738 Urine Dip (Floor Use Only) 17:31:24 EDUCATIONAL RECRUITER CPT-16289 Abd single AP View 16:29:57 EDUCATIONAL RECRUITER CPT-45454 Urine Dip (Floor Use Only) 17:11:11 CDT CPT-36317 Abd single AP View 15:32:06 CDT CPT-30697 Bladder Scan 17:23:57 EDUCATIONAL RECRUITER CPT-35073 Postop F/U Visit 17:23:57 EDUCATIONAL RECRUITER CPT-35326 Urine Dip (Floor Use Only) 17:23:57 EDUCATIONAL RECRUITER CPT-34057 Urine Dip (Floor Use Only) 09:34:16 CDT CPT-24385 Bladder Scan 09:34:16 CDT CPT-92225 Postop F/U Visit 09:34:16 CDT CPT-48640 Postop F/U Visit 21:34:52 CDT CPT-45710 Cystoscopy 22:35:19 CDT CPT-93696 Abd single AP View 11:03:03 CDT
--- OUTSIDE RECORDS SUMMARY | 2018-09-07 18:57 | XMS REPORT | Clinical Summary ---
Author Author Admin, JOHN Organization [facility] Address Unknown Phone Allergies, Adverse Reactions, Alerts [...] MULTIMINERAL PLUS TABS 1 bid MULTIPLE VITAMINS-MINERALS 48977194213 Active Otilio Conti MD Active [facility] MILK THISTLE 175 MG CAPS 1 tab bid MILK THISTLE 61958450189 Active Otilio Conti MD Active CO Q 10 10 MG CAPS a tab bid COENZYME Q10 34613585314 Active Otilio Conti MD Active VERAPAMIL HCL 80 MG TABS 1 daily VERAPAMIL HCL 26560404283 Active Otilio Conti MD Active PRAVASTATIN SODIUM 40 MG TABS 1 daily PRAVASTATIN SODIUM 65931700218 Active Otilio Cotni MD Active CIPRO 500 MG TAB 1 tablet by mouth twice daily CIPROFLOXACIN HCL 62506512227 No Longer Active Otilio Conti MD Active [facility] SAW PALMETTO 160 MG CAPS bid SAW PALMETTO (SERENOA REPENS ) 22031996926 No Longer Active Otilio Conti MD Active [facility] IBUPROFEN 200 MG TABS Take one by mouth daily IBUPROFEN 01633023326 Active Otilio Conti MD Active PRILOSEC OTC 20 MG TBEC Take one by mouth daily OMEPRAZOLE MAGNESIUM 89121047725 Active Otilio Conti MD Active ASPIRIN CHILDRENS 81 MG CHEW ASPIRIN 89226215292 Active Otilio Conti MD Active MENS MULTIVITAMIN PLUS TABS MULTIPLE VITAMINS-MINERALS 22030079566 Active Otilio Conti MD Active OMEGA 3 1000 MG CAPS bid OMEGA-3 FATTY ACIDS 67106476306 Active Otilio Conti MD Active NITROSTAT 0.4 MG SUBL 1 every 5 min for 3 doses prn chest pain NITROGLYCERIN 66940828827 Active Otilio Conti MD Active CALAN 80 MG TABS Take one by mouth daily VERAPAMIL HCL 19517460138 Active Otilio Conti MD Active ZOCOR 40 MG TABS Take one by mouth daily SIMVASTATIN 06235959414 Active Otilio Conti MD Active [facility] SAW PALMETTO 160 MG CAPS bid [facility] SAW PALMETTO 160 MG CAPS SAW PALMETTO (SERENOA REPENS) Inactive CIPRO 500 MG TAB 1 tablet by mouth twice daily CIPRO 500 MG TAB 150531 CIPROFLOXACIN HCL Inactive Advance Directives Directive Description [...] Panel - Chemistry sodium, serum 140 mmol/L 281-046 9747/01/07 potassium, serum 4.0 mmol/L 3.5-5.2 chloride, serum 103 mmol/L 98-107 carbon dioxide, venous blood 26.4 mmol/L 21.0-32.0 blood glucose 118 mg/dL 65-110 calcium, serum 9.4 mg/dL 8.5-10.1 urea nitrogen, blood 17 mg/dL 7-18 creatinine, serum 1.00 mg/dL 0.60-1.30 Lab Report: CBC - Hematology mean corpuscular hemoglobin, RBC 31.3 pg 27.0-31.2 mean corpuscular hemoglobin concentration, RBC 34.0 G/DL % 31.8- 35.4 red blood cell distribution width 13.2 % 11.6-14.8 platelet count 204 10^3/MM^3 10*3/mm3 238-319 6067/01/07 mean corpuscular volume, RBC 92 fL 80-97 hematocrit, blood 49.0 % 41.0-53.0 hemoglobin, blood 16.7 g/dL 13.5-17.5 erythrocyte (RBC) count 5.32 10^6/MM^3 10*6/mm3 4.69-6.13 leukocyte count, blood 6.4 10^3/MM^3 10*3/mm3 4.6-10.2 Office Visit: 2 week f/u kidney stone - Chemistry protein, total urine random negative mg/dL RBC, urine, dipstick 2+ Office Visit: 2 week f/u kidney stone - Urinalysis ketones, urine, by test strip negative bilirubin, urine negative glucose, urine, semiquantitative negative pH, urine, semiquantitative 5 specific gravity, urine 1.015 urine color yellow appearance, urine clear leukocyte esterase, urine, by dipstick 1+ nitrite, urine, semiquantitative negative urobilinogen, urine, semiquantitative (dipstick) negative protein, urine, semiquantitative (dipstick) negative urinalysis, routine Clean Catch Office Visit: Gross hematuria - Chemistry RBC, [...] non-hemolyzed moderate Office Visit: Hematuria - Urinalysis urinalysis, routine Clean Catch Office Visit: Hematuria - Urinalysis urinalysis, routine Clean Catch Office Visit: Hematuria - Urinalysis urine color yellow appearance, urine clear leukocyte esterase, urine, by dipstick negative nitrite, urine, semiquantitative negative urobilinogen, urine, semiquantitative (dipstick) 0.2 protein, urine, semiquantitative (dipstick) negative ketones, urine, by test strip negative bilirubin, urine negative glucose, urine, semiquantitative negative pH, urine, semiquantitative 5 specific gravity, urine 1.025 Office Visit: Hematuria - Urinalysis ketones, urine, by test strip negative bilirubin, urine negative glucose, urine, semiquantitative negative pH, urine, semiquantitative 5 specific gravity, urine 1.020 urine color red appearance, urine cloudy leukocyte esterase, urine, by dipstick negative nitrite, urine, semiquantitative negative urobilinogen, urine, semiquantitative (dipstick) 0.2 protein, urine, semiquantitative (dipstick) negative Encounters Code Encounter Date Provider Facility CPT-75039 Level 3 Est. Patient 11:15:26 RESEARCH PROFESSOR Otilio Conti MD [facility] CPT-36257 Level 4 Est. Patient 22:49:29 RESEARCH PROFESSOR Otilio Conti MD [facility] CPT-14324 Level 3 Est. Patient 17:11:11 CDT Otilio Conti MD [facility] CPT-66377 Level 4 New Patient 22:35:19 CDT Otilio Conti MD [facility] Procedures Code Procedure Name Date Entry Date Standard Description CPT-40691 Postop F/U Visit 11:15:26 RESEARCH PROFESSOR CPT-27274 Abd single AP View 09:43:31 RESEARCH PROFESSOR CPT-78086 Postop F/U Visit 11:03:49 RESEARCH PROFESSOR CPT-81885 Bladder Scan 22:49:29 RESEARCH PROFESSOR CPT-30201 Cystoscopy 22:49:29 RESEARCH PROFESSOR CPT-88005 Urine Dip (Floor Use Only) 17:31:24 RESEARCH PROFESSOR CPT-08601 Abd single AP View 16:29:57 RESEARCH PROFESSOR CPT-01155 Urine Dip (Floor Use Only) 17:11:11 CDT CPT-17455 Abd single AP View 15:32:06 CDT CPT-06640 Bladder Scan 17:23:57 RESEARCH PROFESSOR CPT-38671 Postop F/U Visit 17:23:57 RESEARCH PROFESSOR CPT-16182 Urine Dip (Floor Use Only) 17:23:57 RESEARCH PROFESSOR CPT-83203 Urine Dip (Floor Use Only) 09:34:16 CDT CPT-97969 Bladder Scan 09:34:16 CDT CPT-97232 Postop F/U Visit 09:34:16 CDT CPT-67116 Postop F/U Visit 21:34:52 CDT CPT-03509 Cystoscopy 22:35:19 CDT CPT-23507 Abd single AP View 11:03:03 CDT
--- OUTSIDE RECORDS SUMMARY | 2018-09-07 18:58 | XMS REPORT | Clinical Summary ---
Author Author Admin, JOHN Organization [facility] Address Unknown Phone Allergies, Adverse Reactions, [...] MULTIMINERAL PLUS TABS 1 bid MULTIPLE VITAMINS-MINERALS 51113547416 Active Otilio Conti MD Active [facility] MILK THISTLE 175 MG CAPS 1 tab bid MILK THISTLE 17376496712 Active Otilio Conti MD Active CO Q 10 10 MG CAPS a tab bid COENZYME Q10 66294892085 Active Otilio Conti MD Active VERAPAMIL HCL 80 MG TABS 1 daily VERAPAMIL HCL 97593504655 Active Otilio Conti MD Active PRAVASTATIN SODIUM 40 MG TABS 1 daily PRAVASTATIN SODIUM 73178618566 Active Otilio Conti MD Active CIPRO 500 MG TAB 1 tablet by mouth twice daily CIPROFLOXACIN HCL 00012580461 No Longer Active Otilio Conti MD Active [facility] SAW PALMETTO 160 MG CAPS bid SAW PALMETTO (SERENOA REPENS ) 31297792537 No Longer Active Otilio Conti MD Active [facility] IBUPROFEN 200 MG TABS Take one by mouth daily IBUPROFEN 16324734111 Active Otilio Conti MD Active PRILOSEC OTC 20 MG TBEC Take one by mouth daily OMEPRAZOLE MAGNESIUM 13637663486 Active Otilio Conti MD Active ASPIRIN CHILDRENS 81 MG CHEW ASPIRIN 10178489807 Active Otilio Conti MD Active MENS MULTIVITAMIN PLUS TABS MULTIPLE VITAMINS-MINERALS 19463555601 Active Otilio Conti MD Active OMEGA 3 1000 MG CAPS bid OMEGA-3 FATTY ACIDS 24770593433 Active Otilio Conti MD Active NITROSTAT 0.4 MG SUBL 1 every 5 min for 3 doses prn chest pain NITROGLYCERIN 72356126395 Active Otilio Conti MD Active CALAN 80 MG TABS Take one by mouth daily VERAPAMIL HCL 00436370506 Active Otilio Conti MD Active ZOCOR 40 MG TABS Take one by mouth daily SIMVASTATIN 54283731956 Active Otilio Conti MD Active [facility] SAW PALMETTO 160 MG CAPS bid [facility] SAW PALMETTO 160 MG CAPS SAW PALMETTO (SERENOA REPENS) Inactive CIPRO 500 MG TAB 1 tablet by mouth twice daily CIPRO 500 MG TAB 983348 CIPROFLOXACIN HCL Inactive Advance Directives Directive Description [...] Panel - Chemistry sodium, serum 140 mmol/L 800-411 0960/01/07 potassium, serum 4.0 mmol/L 3.5-5.2 chloride, serum [...] negative Encounters Code Encounter Date Provider Facility CPT-55858 Level 3 Est. Patient 09:48:26 CDT Otilio Conti MD [facility] CPT-73738 Level 3 Est. Patient 11:15:26 TOXICS PROGRAM OFFICER Otilio Conti MD [facility] CPT-36081 Level 4 Est. Patient 22:49:29 TOXICS PROGRAM OFFICER Otilio Conti MD [facility] CPT-47997 Level 3 Est. Patient 17:11:11 CDT Otilio Conti MD [facility] CPT-52529 Level 4 New Patient 22:35:19 CDT Otilio Conti MD [facility] Procedures Code Procedure Name Date Entry Date Standard Description CPT-89781 Abd single AP View 09:56:56 CDT CPT-72875 Postop F/U Visit 11:15:26 TOXICS PROGRAM OFFICER CPT-73547 Abd single AP View 09:43:31 TOXICS PROGRAM OFFICER CPT-14754 Postop F/U Visit 11:03:49 TOXICS PROGRAM OFFICER CPT-08146 Bladder Scan 22:49:29 TOXICS PROGRAM OFFICER CPT-89575 Cystoscopy 22:49:29 TOXICS PROGRAM OFFICER CPT-92196 Urine Dip (Floor Use Only) 17:31:24 TOXICS PROGRAM OFFICER CPT-67017 Abd single AP View 16:29:57 TOXICS PROGRAM OFFICER CPT-83791 Urine Dip (Floor Use Only) 17:11:11 CDT CPT-43809 Abd single AP View 15:32:06 CDT CPT-30431 Bladder Scan 17:23:57 TOXICS PROGRAM OFFICER CPT-80296 Postop F/U Visit 17:23:57 TOXICS PROGRAM OFFICER CPT-47969 Urine Dip (Floor Use Only) 17:23:57 TOXICS PROGRAM OFFICER CPT-08208 Urine Dip (Floor Use Only) 09:34:16 CDT CPT-25572 Bladder Scan 09:34:16 CDT CPT-67401 Postop F/U Visit 09:34:16 CDT CPT-51093 Postop F/U Visit 21:34:52 CDT CPT-50250 Cystoscopy 22:35:19 CDT CPT-82537 Abd single AP View 11:03:03 CDT
--- OUTSIDE RECORDS SUMMARY | 2018-09-07 18:58 | XMS REPORT | Clinical Summary ---
Author Author Admin, JOHN Organization [facility] Address Unknown Phone Allergies, Adverse [...] MULTIMINERAL PLUS TABS 1 bid MULTIPLE VITAMINS-MINERALS 34730211482 Active Otilio Conti MD Active [facility] MILK THISTLE 175 MG CAPS 1 tab bid MILK THISTLE 59120249510 Active Otilio Conti MD Active CO Q 10 10 MG CAPS a tab bid COENZYME Q10 06629929443 Active Otilio Conti MD Active VERAPAMIL HCL 80 MG TABS 1 daily VERAPAMIL HCL 87456142735 Active Otilio Conti MD Active PRAVASTATIN SODIUM 40 MG TABS 1 daily PRAVASTATIN SODIUM 41809189920 Active Otilio Conti MD Active CIPRO 500 MG TAB 1 tablet by mouth twice daily CIPROFLOXACIN HCL 60325805322 No Longer Active Otilio Conti MD Active [facility] SAW PALMETTO 160 MG CAPS bid SAW PALMETTO (SERENOA REPENS ) 43618582364 No Longer Active Otilio Conti MD Active [facility] IBUPROFEN 200 MG TABS Take one by mouth daily IBUPROFEN 33912729688 Active Otilio Conti MD Active PRILOSEC OTC 20 MG TBEC Take one by mouth daily OMEPRAZOLE MAGNESIUM 83454045415 Active Otilio Conti MD Active ASPIRIN CHILDRENS 81 MG CHEW ASPIRIN 44448369038 Active Otilio Conti MD Active MENS MULTIVITAMIN PLUS TABS MULTIPLE VITAMINS-MINERALS 43298198155 Active Otilio Conti MD Active OMEGA 3 1000 MG CAPS bid OMEGA-3 FATTY ACIDS 10688406767 Active Otilio Conti MD Active NITROSTAT 0.4 MG SUBL 1 every 5 min for 3 doses prn chest pain NITROGLYCERIN 59148392101 Active Otilio Conti MD Active CALAN 80 MG TABS Take one by mouth daily VERAPAMIL HCL 17247116813 Active Otilio Conti MD Active ZOCOR 40 MG TABS Take one by mouth daily SIMVASTATIN 59820511376 Active Otilio Conti MD Active [facility] SAW PALMETTO 160 MG CAPS bid [facility] SAW PALMETTO 160 MG CAPS SAW PALMETTO (SERENOA REPENS) Inactive CIPRO 500 MG TAB 1 tablet by mouth twice daily CIPRO 500 MG TAB 058278 CIPROFLOXACIN HCL Inactive Advance Directives Directive Description [...] Panel - Chemistry sodium, serum 140 mmol/L 151-924 0295/01/07 potassium, serum 4.0 mmol/L 3.5-5.2 chloride, serum [...] negative Encounters Code Encounter Date Provider Facility CPT-04195 Level 3 Est. Patient 09:48:26 CDT Otilio Conti MD [facility] CPT-17588 Level 3 Est. Patient 11:15:26 COMMERCIAL LOAN REVIEWER Otilio Conti MD [facility] CPT-11283 Level 4 Est. Patient 22:49:29 COMMERCIAL LOAN REVIEWER Otilio Conti MD [facility] CPT-62978 Level 3 Est. Patient 17:11:11 CDT Otilio Conti MD [facility] CPT-94187 Level 4 New Patient 22:35:19 CDT Otilio Conti MD [facility] Procedures Code Procedure Name Date Entry Date Standard Description CPT-59893 Abd single AP View 09:56:56 CDT CPT-83928 Postop F/U Visit 11:15:26 COMMERCIAL LOAN REVIEWER CPT-64363 Abd single AP View 09:43:31 COMMERCIAL LOAN REVIEWER CPT-11932 Postop F/U Visit 11:03:49 COMMERCIAL LOAN REVIEWER CPT-73311 Bladder Scan 22:49:29 COMMERCIAL LOAN REVIEWER CPT-97171 Cystoscopy 22:49:29 COMMERCIAL LOAN REVIEWER CPT-86701 Urine Dip (Floor Use Only) 17:31:24 COMMERCIAL LOAN REVIEWER CPT-06341 Abd single AP View 16:29:57 COMMERCIAL LOAN REVIEWER CPT-99154 Urine Dip (Floor Use Only) 17:11:11 CDT CPT-89118 Abd single AP View 15:32:06 CDT CPT-51975 Bladder Scan 17:23:57 COMMERCIAL LOAN REVIEWER CPT-57396 Postop F/U Visit 17:23:57 COMMERCIAL LOAN REVIEWER CPT-10386 Urine Dip (Floor Use Only) 17:23:57 COMMERCIAL LOAN REVIEWER CPT-40190 Urine Dip (Floor Use Only) 09:34:16 CDT CPT-54028 Bladder Scan 09:34:16 CDT CPT-13887 Postop F/U Visit 09:34:16 CDT CPT-70694 Postop F/U Visit 21:34:52 CDT CPT-71578 Cystoscopy 22:35:19 CDT CPT-96167 Abd single AP View 11:03:03 CDT
--- OUTSIDE RECORDS SUMMARY | 2018-09-07 18:59 | XMS REPORT | Clinical Summary ---
Author Author Admin, JOHN Organization [facility] Address Unknown Phone Allergies, Adverse Reactions, Alerts [...] tract (LUTS) U T I-ACUTE 599.0 Active Oitlio Conti MD Urinary tract infection, site not [...] MULTIMINERAL PLUS TABS 1 bid MULTIPLE VITAMINS-MINERALS 09770884816 Active Otilio Conti MD Active [facility] MILK THISTLE 175 MG CAPS 1 tab bid MILK THISTLE 31404805633 Active Otilio Conti MD Active CO Q 10 10 MG CAPS a tab bid COENZYME Q10 13345179805 Active Otilio Conti MD Active VERAPAMIL HCL 80 MG TABS 1 daily VERAPAMIL HCL 12021172654 Active Otilio Conti MD Active PRAVASTATIN SODIUM 40 MG TABS 1 daily PRAVASTATIN SODIUM 08830370656 Active Otilio Conti MD Active CIPRO 500 MG TAB 1 tablet by mouth twice daily CIPROFLOXACIN HCL 58833823612 No Longer Active Otilio Conti MD Active [facility] SAW PALMETTO 160 MG CAPS bid SAW PALMETTO (SERENOA REPENS ) 95478894230 No Longer Active Otilio Conti MD Active [facility] IBUPROFEN 200 MG TABS Take one by mouth daily IBUPROFEN 66915907274 Active Otilio Conti MD Active PRILOSEC OTC 20 MG TBEC Take one by mouth daily OMEPRAZOLE MAGNESIUM 87249743746 Active Otilio Conti MD Active ASPIRIN CHILDRENS 81 MG CHEW ASPIRIN 18452956733 Active Otilio Conti MD Active MENS MULTIVITAMIN PLUS TABS MULTIPLE VITAMINS-MINERALS 62772233089 Active Otilio Conti MD Active OMEGA 3 1000 MG CAPS bid OMEGA-3 FATTY ACIDS 01597648479 Active Otilio Conti MD Active NITROSTAT 0.4 MG SUBL 1 every 5 min for 3 doses prn chest pain NITROGLYCERIN 34946412754 Active Otilio Conti MD Active CALAN 80 MG TABS Take one by mouth daily VERAPAMIL HCL 41780862026 Active Otilio Conti MD Active ZOCOR 40 MG TABS Take one by mouth daily SIMVASTATIN 56025979772 Active Otilio Conti MD Active [facility] SAW PALMETTO 160 MG CAPS bid [facility] SAW PALMETTO 160 MG CAPS SAW PALMETTO (SERENOA REPENS) Inactive CIPRO 500 MG TAB 1 tablet by mouth twice daily CIPRO 500 MG TAB 860679 CIPROFLOXACIN HCL Inactive Advance Directives Directive Description [...] Panel - Chemistry sodium, serum 140 mmol/L 199-245 1726/01/07 potassium, serum 4.0 mmol/L 3.5-5.2 chloride, serum [...] negative Encounters Code Encounter Date Provider Facility CPT-48817 Level 3 Est. Patient 11:15:26 BLACKSMITH ASSISTANT Otilio Conti MD [facility] CPT-80668 Level 4 Est. Patient 22:49:29 BLACKSMITH ASSISTANT Otilio Conti MD [facility] CPT-35926 Level 3 Est. Patient 17:11:11 CDT Otilio Conti MD [facility] CPT-86765 Level 4 New Patient 22:35:19 CDT Otilio Conti MD [facility] Procedures Code Procedure Name Date Entry Date Standard Description CPT-77893 Postop F/U Visit 11:15:26 BLACKSMITH ASSISTANT CPT-61844 Abd single AP View 09:43:31 BLACKSMITH ASSISTANT CPT-98768 Postop F/U Visit 11:03:49 BLACKSMITH ASSISTANT CPT-08561 Bladder Scan 22:49:29 BLACKSMITH ASSISTANT CPT-78337 Cystoscopy 22:49:29 BLACKSMITH ASSISTANT CPT-15664 Urine Dip (Floor Use Only) 17:31:24 BLACKSMITH ASSISTANT CPT-31173 Abd single AP View 16:29:57 BLACKSMITH ASSISTANT CPT-57167 Urine Dip (Floor Use Only) 17:11:11 CDT CPT-91900 Abd single AP View 15:32:06 CDT CPT-70585 Bladder Scan 17:23:57 BLACKSMITH ASSISTANT CPT-82673 Postop F/U Visit 17:23:57 BLACKSMITH ASSISTANT CPT-95991 Urine Dip (Floor Use Only) 17:23:57 BLACKSMITH ASSISTANT CPT-90019 Urine Dip (Floor Use Only) 09:34:16 CDT CPT-33037 Bladder Scan 09:34:16 CDT CPT-38960 Postop F/U Visit 09:34:16 CDT CPT-56611 Postop F/U Visit 21:34:52 CDT CPT-85986 Cystoscopy 22:35:19 CDT CPT-25196 Abd single AP View 11:03:03 CDT
--- OUTSIDE RECORDS SUMMARY | 2018-09-07 18:59 | XMS REPORT | Clinical Summary ---
Author Author Admin, JOHN Organization [facility] Address Unknown Phone Allergies, [...] MULTIMINERAL PLUS TABS 1 bid MULTIPLE VITAMINS-MINERALS 46755388595 Active Otilio Conti MD Active [facility] MILK THISTLE 175 MG CAPS 1 tab bid MILK THISTLE 57235359963 Active Otilio Conti MD Active CO Q 10 10 MG CAPS a tab bid COENZYME Q10 02003352870 Active Otilio Conti MD Active VERAPAMIL HCL 80 MG TABS 1 daily VERAPAMIL HCL 63674174441 Active Otilio Conti MD Active PRAVASTATIN SODIUM 40 MG TABS 1 daily PRAVASTATIN SODIUM 02751849951 Active Otilio Conti MD Active CIPRO 500 MG TAB 1 tablet by mouth twice daily CIPROFLOXACIN HCL 84759766119 No Longer Active Otilio Conti MD Active [facility] SAW PALMETTO 160 MG CAPS bid SAW PALMETTO (SERENOA REPENS ) 64012180672 No Longer Active Otilio Conti MD Active [facility] IBUPROFEN 200 MG TABS Take one by mouth daily IBUPROFEN 64183888077 Active Otilio Conti MD Active PRILOSEC OTC 20 MG TBEC Take one by mouth daily OMEPRAZOLE MAGNESIUM 53320036158 Active Otilio Conti MD Active ASPIRIN CHILDRENS 81 MG CHEW ASPIRIN 86455991640 Active Otilio Conti MD Active MENS MULTIVITAMIN PLUS TABS MULTIPLE VITAMINS-MINERALS 73199339481 Active Otilio Conti MD Active OMEGA 3 1000 MG CAPS bid OMEGA-3 FATTY ACIDS 84316138740 Active Otilio Conti MD Active NITROSTAT 0.4 MG SUBL 1 every 5 min for 3 doses prn chest pain NITROGLYCERIN 59985648327 Active Otilio Conti MD Active CALAN 80 MG TABS Take one by mouth daily VERAPAMIL HCL 81465817702 Active Otilio Conti MD Active ZOCOR 40 MG TABS Take one by mouth daily SIMVASTATIN 75692371966 Active Otilio Conti MD Active [facility] SAW PALMETTO 160 MG CAPS bid [facility] SAW PALMETTO 160 MG CAPS SAW PALMETTO (SERENOA REPENS) Inactive CIPRO 500 MG TAB 1 tablet by mouth twice daily CIPRO 500 MG TAB 878850 CIPROFLOXACIN HCL Inactive Advance Directives Directive Description [...] Panel - Chemistry sodium, serum 140 mmol/L 514-723 1417/01/07 potassium, serum 4.0 mmol/L 3.5-5.2 chloride, serum [...] negative Encounters Code Encounter Date Provider Facility CPT-59435 Level 3 Est. Patient 09:48:26 CDT Otilio Conti MD [facility] CPT-64601 Level 3 Est. Patient 11:15:26 HORSESHOER Otilio Conti MD [facility] CPT-11343 Level 4 Est. Patient 22:49:29 HORSESHOER Otilio Conti MD [facility] CPT-78483 Level 3 Est. Patient 17:11:11 CDT Otilio Conti MD [facility] CPT-71916 Level 4 New Patient 22:35:19 CDT Otilio Conti MD [facility] Procedures Code Procedure Name Date Entry Date Standard Description CPT-22874 Abd single AP View 09:56:56 CDT CPT-08938 Postop F/U Visit 11:15:26 HORSESHOER CPT-79081 Abd single AP View 09:43:31 HORSESHOER CPT-67936 Postop F/U Visit 11:03:49 HORSESHOER CPT-17147 Bladder Scan 22:49:29 HORSESHOER CPT-00475 Cystoscopy 22:49:29 HORSESHOER CPT-43077 Urine Dip (Floor Use Only) 17:31:24 HORSESHOER CPT-39662 Abd single AP View 16:29:57 HORSESHOER CPT-04496 Urine Dip (Floor Use Only) 17:11:11 CDT CPT-50643 Abd single AP View 15:32:06 CDT CPT-03319 Bladder Scan 17:23:57 HORSESHOER CPT-76383 Postop F/U Visit 17:23:57 HORSESHOER CPT-65200 Urine Dip (Floor Use Only) 17:23:57 HORSESHOER CPT-28407 Urine Dip (Floor Use Only) 09:34:16 CDT CPT-73852 Bladder Scan 09:34:16 CDT CPT-88475 Postop F/U Visit 09:34:16 CDT CPT-26117 Postop F/U Visit 21:34:52 CDT CPT-30345 Cystoscopy 22:35:19 CDT CPT-47247 Abd single AP View 11:03:03 CDT
--- OUTSIDE RECORDS SUMMARY | 2018-09-07 19:00 | XMS REPORT | Continuity of Care Document ---
Demographics x Preferred Language Unknown Marital Status Unknown Quaker Affiliation Unknown Race Unknown Ethnic Group Unknown Author Author [facility] Organization [facility] Address Unknown Phone Unavailable Allergies Active Description Code Type Severity Reaction Onset Reported/Identified Relationship to Patient Clinical Status Yes bee stings Miscellaneous Allergy N/A N/A Yes Hydrocodone 1554 Drug Allergy N /A makes him crazy Yes morphine 1545 Drug Allergy N/A whole body became warm Yes HYDROCODONE-ACETAMINOPHEN 90024717589 Drug Allergy N/A N/A Yes MORPHINE SULFATE 60895 Drug Allergy N/A N/A Yes BEE STINGS 46471839 ENVIRONMENTAL N/A N/A Yes HYDROCODONE 06443806 DRUG N/A N/A Yes LORTAB 08346225 BRANDNAME N/A N/A Yes MORPHINE 91633719 DRUG N/A N/A Yes bee venom (honey bee) [id number] Drug Allergy Unknown N/A 01/26/2014 Yes hydrocodone A200397601 Drug Allergy Unknown Hallucinations 01/26/2014 Yes morphine [id number] Drug Allergy Unknown N/A 01/26/2014 Yes venom-honey bee [id number] Drug Allergy Unknown N/A 01/26/2014 Medications Medication Packaging Start Date Stop Date Route Dosage Sig VERAPAMIL HCL ORAL 12/24/2015 ORAL 9090 3 times a day PRILOSEC OTC ORAL 12/24/2015 ORAL 3030 daily PRAVASTATIN SODIUM ORAL 12/24/2015 ORAL 3030 daily IBUPROFEN ORAL 12/24/2015 01/03/2016 ORAL 3030 3 times a day AZILECT ORAL 12/24/2015 ORAL 3030 daily ASPIRIN EC ORAL 12/24/2015 ORAL 3030 daily Problems Date Dx Coded Attending Type Code Diagnosis Diagnosed By 01/27/2014 Other 466.0 ACUTE BRONCHITIS 02/06/2014 Other 564.00 UNSPEC CONSTIPATION 07/07/2016 Other 595.0 07/07/2016 Other J44.9 CHRONIC OBSTRUCTIVE PULMONARY DISEASE, UNSPECIFIED 07/07/2016 Other I25.10 ATHSCL HEART DISEASE OF [place] CORONARY ARTERY W/O ANG PCTRS 07/07/2016 Other M47.812 SPONDYLOSIS W/O MYELOPATHY OR RADICULOPATHY, CERVICAL REGION 10/14/2016 Other 595.0 10/14/2016 Other J44.9 CHRONIC OBSTRUCTIVE PULMONARY DISEASE, UNSPECIFIED 10/14/2016 Other I25.10 ATHSCL HEART DISEASE OF [place] CORONARY ARTERY W/O ANG PCTRS 10/14/2016 Other M47.812 SPONDYLOSIS W/O MYELOPATHY OR RADICULOPATHY, CERVICAL REGION 10/14/2016 BABAR CHANDRA MD Other M54.2 CERVICALGIA 10/28/2016 Other 595.0 10/28/2016 Other J44.9 CHRONIC OBSTRUCTIVE PULMONARY DISEASE, UNSPECIFIED 10/28/2016 Other I25.10 ATHSCL HEART DISEASE OF [place] CORONARY ARTERY W/O ANG PCTRS 10/28/2016 Other M47.812 SPONDYLOSIS W/O MYELOPATHY OR RADICULOPATHY, CERVICAL REGION 10/28/2016 BABAR CHANDRA MD Other M54.2 CERVICALGIA 10/28/2016 BABAR CHANDRA MD Other M54.2 CERVICALGIA 11/24/2016 BABAR CHANDRA MD Other M54.2 CERVICALGIA 04/28/2017 Other 595.0 04/28/2017 Other J44.9 CHRONIC OBSTRUCTIVE PULMONARY DISEASE, UNSPECIFIED 04/28/2017 Other I25.10 ATHSCL HEART DISEASE OF [place] CORONARY ARTERY W/O ANG PCTRS 04/28/2017 Other M47.812 SPONDYLOSIS W/O MYELOPATHY OR RADICULOPATHY, CERVICAL REGION 04/28/2017 BABAR CHANDRA MD Other M54.2 CERVICALGIA 04/28/2017 BABAR CHANDRA MD Other M54.2 CERVICALGIA 04/28/2017 BABAR CHANDRA MD Other M54.2 CERVICALGIA Procedures Code Description [place] [address] POLYSOMNOGRAPHY, 4 OR MORE 01/21/2016 76925 POLYSOMNOGRAPHY W/CPAP 04/06/2016 Results There is no data. Encounters ACCT No. Visit Date/Time Discharge Status Pt. Type Provider Facility Loc./Unit Complaint [id number] 04/05/2016 19:41:00 04/06/2016 04:15:00 DIS Outpatient SHAWNA HUDSON [facility] 2F [id number] 01/20/2016 19:28:00 01/21/2016 05:50:00 DIS Outpatient SHAWNA HUDSON [facility] 2F [id number] 12/14/2016 12:06:58 12/14/2016 12:06:58 DIS Outpatient [place] [facility] [id number] 04/27/2017 12:47:00 Document Registration [id number] 09/06/2018 09:59:15 Document Registration [id number] 01/14/2014 19:12:15 01/14/2014 23:59:59 CLS Outpatient Mojgan Guaman [facility] [id number] 10/04/2016 02:31:01 ACT Unknown [id number] 10/28/2016 11:37:00 10/28/2016 23:59:59 CLS Outpatient PRATEEK GUZMÁN [facility] [id number] 10/14/2016 09:26:00 10/14/2016 23:59:59 CLS Outpatient PRATEEK GUZMÁN [facility] [id number] 09/23/2016 08:32:00 09/23/2016 23:59:59 CLS Outpatient PRATEEK GUZMÁN [facility] [id number] 07/07/2016 14:16:00 Document Registration [id number] 07/07/2016 14:16:00 Document Registration [id number] 07/07/2016 14:16:00 Document Registration [id number] 10/02/2015 14:01:00 Document Registration [id number] 09/30/2015 13:47:00 Document Registration [id number] 01/26/2014 22:15:00 Document Registration
--- OUTSIDE RECORDS SUMMARY | 2018-09-07 19:00 | XMS REPORT | Clinical Summary ---
Author Author Admin, JOHN Organization [facility] Address Unknown Phone Allergies, Adverse Reactions, Alerts [...] stroke (cerebrovascular) GROSS HEMATURIA 599.71 Active Otilio oCnti MD Gross hematuria BLADDER CALCULUS 594.1 Active [...] MULTIMINERAL PLUS TABS 1 bid MULTIPLE VITAMINS-MINERALS 91784099891 Active Otilio Conti MD Active [facility] MILK THISTLE 175 MG CAPS 1 tab bid MILK THISTLE 45223333534 Active Otilio Conti MD Active CO Q 10 10 MG CAPS a tab bid COENZYME Q10 72940763028 Active Otilio Conti MD Active VERAPAMIL HCL 80 MG TABS 1 daily VERAPAMIL HCL 63545191720 Active Otilio Conti MD Active PRAVASTATIN SODIUM 40 MG TABS 1 daily PRAVASTATIN SODIUM 51435446226 Active Otilio Conti MD Active CIPRO 500 MG TAB 1 tablet by mouth twice daily CIPROFLOXACIN HCL 08814072776 No Longer Active Otilio Conti MD Active [facility] SAW PALMETTO 160 MG CAPS bid SAW PALMETTO (SERENOA REPENS ) 73923038992 No Longer Active Otilio Conti MD Active [facility] IBUPROFEN 200 MG TABS Take one by mouth daily IBUPROFEN 08132430423 Active Otilio Conti MD Active PRILOSEC OTC 20 MG TBEC Take one by mouth daily OMEPRAZOLE MAGNESIUM 87085550496 Active Otilio Conti MD Active ASPIRIN CHILDRENS 81 MG CHEW ASPIRIN 37198658815 Active Otilio Conti MD Active MENS MULTIVITAMIN PLUS TABS MULTIPLE VITAMINS-MINERALS 46783880597 Active Otilio Conti MD Active OMEGA 3 1000 MG CAPS bid OMEGA-3 FATTY ACIDS 50344362862 Active Otilio Conti MD Active NITROSTAT 0.4 MG SUBL 1 every 5 min for 3 doses prn chest pain NITROGLYCERIN 41584428715 Active Otilio Conti MD Active CALAN 80 MG TABS Take one by mouth daily VERAPAMIL HCL 07061443849 Active Otilio Conti MD Active ZOCOR 40 MG TABS Take one by mouth daily SIMVASTATIN 94551206779 Active Otilio Conti MD Active [facility] SAW PALMETTO 160 MG CAPS bid [facility] SAW PALMETTO 160 MG CAPS SAW PALMETTO (SERENOA REPENS) Inactive CIPRO 500 MG TAB 1 tablet by mouth twice daily CIPRO 500 MG TAB 701708 CIPROFLOXACIN HCL Inactive Advance Directives Directive Description [...] Panel - Chemistry sodium, serum 140 mmol/L 103-341 2759/01/07 potassium, serum 4.0 mmol/L 3.5-5.2 chloride, serum [...] negative Encounters Code Encounter Date Provider Facility CPT-40845 Level 3 Est. Patient 09:48:26 CDT Otilio Conti MD [facility] CPT-86942 Level 3 Est. Patient 11:15:26 API DEVELOPER Otilio Conti MD [facility] CPT-35746 Level 4 Est. Patient 22:49:29 API DEVELOPER Otilio Conti MD [facility] CPT-72635 Level 3 Est. Patient 17:11:11 CDT Otilio Conti MD [facility] CPT-12463 Level 4 New Patient 22:35:19 CDT Otilio Conti MD [facility] Procedures Code Procedure Name Date Entry Date Standard Description CPT-09932 Abd single AP View 09:56:56 CDT CPT-46714 Postop F/U Visit 11:15:26 API DEVELOPER CPT-71069 Abd single AP View 09:43:31 API DEVELOPER CPT-18915 Postop F/U Visit 11:03:49 API DEVELOPER CPT-46753 Bladder Scan 22:49:29 API DEVELOPER CPT-52501 Cystoscopy 22:49:29 API DEVELOPER CPT-89391 Urine Dip (Floor Use Only) 17:31:24 API DEVELOPER CPT-47178 Abd single AP View 16:29:57 API DEVELOPER CPT-26289 Urine Dip (Floor Use Only) 17:11:11 CDT CPT-03470 Abd single AP View 15:32:06 CDT CPT-10285 Bladder Scan 17:23:57 API DEVELOPER CPT-96512 Postop F/U Visit 17:23:57 API DEVELOPER CPT-27682 Urine Dip (Floor Use Only) 17:23:57 API DEVELOPER CPT-92932 Urine Dip (Floor Use Only) 09:34:16 CDT CPT-11145 Bladder Scan 09:34:16 CDT CPT-99457 Postop F/U Visit 09:34:16 CDT CPT-11653 Postop F/U Visit 21:34:52 CDT CPT-65703 Cystoscopy 22:35:19 CDT CPT-76644 Abd single AP View 11:03:03 CDT
--- NOTE | 2018-09-07 20:00 | PM&R Post Admission Assessment ---
Post Admission Physician Asses Date seen by provider: Sep 07, 2018 Time seen by provider: 19:00 The preadmission screen agrees with the post admission assessment that the patient is a good candidate for inpatient rehabilitation. The patient will have a comprehensive program of inpatient rehabilitation with a goal of maximizing level of functional independence prior to discharge home with spouse. The patient will have PT/OT ninety minutes per day, each discipline, five days a week for 2 weeks for gait, strengthening, conditioning, balance, ADLs, any patient/family/caregiver training as necessary. Speech therapy to do cognitive assessment and treat as indicated. Rehabilitation nursing to assist with bowel, bladder, skin, wound care, medication administration, pain management. Professor Of Fine Art to assist with discharge planning, community reentry. SCD's for DVT prophylaxis. He appears to be well motivated to participate in three hours of therapy a day. He should be able to tolerate three hours of therapy a day from a medical standpoint. He should benefit from the three hours of therapy a day. He has a reasonable discharge plan, reasonable discharge rehabilitation goals and a supportive family. He has various comorbidities that need to be closely monitored with medications and treatments adjusted on a daily basis as needed. These include: Hyponatremia UTI Barriers to discharge for this patient who had been independent prior to this are for him to be modified independent to supervision for ADLs and mobility skills prior to discharge home with spouse, so as to lessen the burden of the caregivers. Risks for this patient include: 1. Fall 2. Fracture 3. DVT 4. Pulmonary embolism 5. recurrent stroke 6. Skin breakdown 7. Contractures 8. Poorly controlled pain 9. Urinary retention 10. recurrent UTI 11. Respiratory infection 12. Aspiration 13. Worsening Hyponatremia Estimated Length of Stay: 14 days Prognosis: Rehab prognosis appears good for goal of discharge home with spouse modified independent to supervision for ADLs and mobility skills. Date Identified: Sep 07, 2018 Time Identified: 19:00 Action Plan to Resolve CSMI: Transfer meds reviewed Midlevel from [facility] called and stated that UTI discovered just prior to transfers and PO antibiotic ordered General: Alert, Oriented X3, Cooperative, No Acute Distress HEENT: Atraumatic, PERRLA, EOMI, Mucous Memb Moist/[place] Neck: Supple, No JVD Lungs: Clear to Auscultation Heart: Regular Rate Abdomen: Normal Bowel Sounds, Soft, No Tenderness Extremities: No Edema Skin: No Significant Lesion Neuro: Strength at 5/5 X4 Ext, Other (dysmetria on left with gait imbalance and Strength 5/5 in all limbs except LUE 4+/5) Psych/Mental Status: Mental Status NL FLETCHER ALMANZAR MD Sep 07, 2018 20:00
--- NOTE | 2018-09-07 20:23 | HISTORY AND PHYSICAL ---
DATE OF SERVICE: 09/07/2018 CHIEF COMPLAINT: Difficulty with walking. 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 The patient was started on aspirin and a statin. TTE on 09/04/2018 showed normal left ventricular systolic function approximately 60%, no significant valvular stenosis or regurgitation. CT of the head without contrast on 09/04/2018 showed redemonstration of large left inferior cerebellar infarct and posterior fossa mass effect without hemorrhagic conversion. Therapies were begun for the patient. The patient was felt to be appropriate for inpatient rehabilitation and referred to inpatient rehabilitation unit at [facility] for ongoing care. Currently, the patient requires assistance for his ADLs and mobility skills. Case was discussed with Dr. Chamberlain and alaina from [facility]. Apparently, the patient says he has just been started on antibiotic for UTI and is on salt tablets for hyponatremia. PAST MEDICAL HISTORY: Osteoarthritis, GERD. PAST SURGICAL HISTORY: Bilateral total knee replacements, one done at [facility] and the other at [place], [place]. ALLERGIES: TYLENOL, HYDROCODONE. FAMILY HISTORY: Noncontributory. 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 REVIEW OF SYSTEMS: A 10-point review of systems significant for gait imbalance, ataxia. MEDICATIONS: ASA 81 mg p.o. daily, Lipitor 40 mg p.o. daily, Plavix 75 mg p.o. daily, sodium chloride 8.5 mL by mouth 4 times daily, Lidoderm patch apply topically to affected area off for 12 hours and on for 12 hours, Nitrostat 0.4 mg p.r.n. chest pain, Prilosec 20 mg p.o. daily, Mirapex 1.5 mg p.o. t.i.d., Azilect 1 mg p.o. daily, antibiotic 1 p.o. b.i.d. PHYSICAL EXAMINATION: GENERAL: Significant for a pleasant male appearing his stated age, lying in bed, in no acute distress. VITAL SIGNS: Within normal limits. He is afebrile. HEENT: Vision, speech, hearing grossly intact. No oral lesion is noted. NECK: Supple without mass. HEART: Regular rhythm. CHEST: Clear. ABDOMEN: Soft, nontender, bowel sounds present. EXTREMITIES: No lower leg edema, no calf tenderness. MUSCULOSKELETAL: He has functional active range of motion in all 4 limbs. NEUROLOGIC: Cognition appears grossly intact. Sensation is grossly intact to touch. Coordination dysmetria left upper limb, gait dysequilibrium with standing, ataxic gait. Strength is 5/5 right upper limb, right lower limb, left lower limb and 4+/5 left upper limb. IMPRESSION: 1. Left cerebellar infarct with mild left-sided weakness, gait imbalance, ataxia. 2. Parkinson's disease controlled with medication. 3. Hyponatremia on salt tablets. 4. Osteoarthritis, status post bilateral total knee replacements remote. PLAN: The patient will have a comprehensive program of inpatient rehabilitation with goal of maximizing level of functional independence prior to discharge home with spouse. The patient will have PT, OT 90 minutes per day each discipline 5 days a week for 2 weeks with the above goals in mind. Please see post-admission physician evaluation, which is a separate document for details of plan of care. Speech therapy to do speech cognitive evaluation, treat as indicated. Rehabilitation nursing to assist with bowel, bladder, skin care, medication administration, pain management and health care social worker for discharge planning, community reentry. Continue current medications. ESTIMATED LENGTH OF STAY: Two weeks. PROGNOSIS: Rehab prognosis appears good for goal of discharging home with spouse, modified independent to supervision for ADLs and mobility skills. DIET: Heart healthy. CODE STATUS: Full code. Job ID: [id number] DocumentID: [id number] Dictated Date: 09/07/2018 19:50:58 Supervisory Cbp Officer Date: 09/07/2018 20:22:38 Dictated By: FLETCHER CHAMBERLAIN MD [facility]
[2018-09-07] MEDS: LIDOCAINE PATCH REMOVAL TP SCH (21:05)
[2018-09-07] MEDS ORDERED: ACETAMINOPHEN 325 MG TABLET PO PRN (21:15)
[2018-09-07] MEDS ORDERED: ACETAMINOPHEN 325 MG TABLET ONE (21:17)
[2018-09-07] MEDS: ATORVASTATIN 40 MG (LIPITOR) TABLET PO SCH (21:21)
[2018-09-07] MEDS: PRAMIPEXOLE 0.5 MG TAB (MIRAPEX) PO SCH (21:22)
[2018-09-07] MEDS: CEFDINIR 300 MG (OMNICEF) CAP PO SCH (21:24)
[2018-09-08 05:52] VITALS: BP 153/83
[2018-09-08] MEDS: PANTOPRAZOLE 40 MG (PROTONIX) TAB PO SCH (06:00)
[2018-09-08 06:11] LABS: HEMOGLOBIN 15.8 G/DL (13.3-17.7); RED BLOOD COUNT 5.2 10^6/uL (4.35-5.85); RED CELL DISTRIBUTION WIDTH 13.2 % (10.0-14.5); WHITE BLOOD COUNT 20.5 10^3/uL (4.3-11.0)
[2018-09-08 06:32] LABS: ALANINE AMINOTRANSFERASE 40 U/L (0-55); ALBUMIN 3.9 GM/DL (3.2-4.5); ALKALINE PHOSPHATASE 74 U/L (40-136); BILIRUBIN,TOTAL 2.3 MG/DL (0.1-1.0); BUN/CREATININE RATIO 21; CALCIUM 9.4 MG/DL (8.5-10.1); CARBON DIOXIDE 17 MMOL/L (21-32); CHLORIDE 101 MMOL/L (98-107); GFR ESTIMATED > 60; GLUCOSE 132 MG/DL (70-105); POTASSIUM 3.8 MMOL/L (3.6-5.0); SODIUM 131 MMOL/L (135-145); TOTAL PROTEIN 6.9 GM/DL (6.4-8.2)
--- NOTE | 2018-09-08 08:03 | Consultation ---
History of Present Illness History of Present Illness Patient Consulted On(haris/time) 09/08/18 07:59 Time Seen by Provider: 07:59 History of Present Illness Patient lives in [place]. Patient had a stroke. Left cerebral infarct with mild left sided weakness. Patient went to [facility]. Patient transferred to [facility]. Patient has a gait imbalance. Ataxia. Parkinson disease. Hyponatremia. Osteoarthritis. Patient woke up Tuesday everything turned" to the bathroom and nearly fell in the bathtub. Previous surgeries left rotator and to knees. Family history diabetic and heart disease Allergies and Home Medications Allergies Coded Allergies: acetaminophen (Verified Allergy, Intermediate, CONFUSION, 09/07/18) hydrocodone (Verified Allergy, Intermediate, CONFUSION, 09/07/18) Patient Home Medication List Home Medication List Reviewed: Yes Past Gkczyuf-Pmqfcu-Ewfrit Hx Patient Social History Alcohol Use: Denies Use Recreational Drug Use: No Smoking Status: Never a Smoker Recent Foreign Travel: No Contact w/Someone Who Travel: No Recent Infectious Disease Expo: No Recent Hopitalizations: Yes Immunizations Up To Date Date of Pneumonia Vaccine: Aug 30, 2017 Date of Influenza Vaccine: Jul 06, 2018 Seasonal Allergies Seasonal Allergies: No Past Medical History Respiratory: Yes Sleep Apnea Currently Using CPAP: Yes Cardiac: No Neurological: Yes Genitourinary: No Kidney Stones Gastrointestinal: Yes Gastroesophageal Reflux Degenerate Disk Disease, Arthritis, Fractures Endocrine: No Cataract Loss of Vision: Denies Hearing Impairment: Hard of Hearing Cancer: Yes Skin Did You Recieve Any Treatments: No Depression Integumentary: No Blood Disorders: No Review of Systems-General Constitutional: no symptoms reported EENTM: no symptoms reported Respiratory: no symptoms reported Cardiovascular: no symptoms reported Gastrointestinal: no symptoms reported Genitourinary: no symptoms reported Musculoskeletal: no symptoms reported Physical Exam-General Problems Physical Exam Vital Signs Vital Signs - First Documented 09/07/18 18:40 Temp 99.6 Pulse 64 Resp 18 B/P (MAP) 163/84 (110) Pulse Ox 96 O2 Delivery Room Air Capillary Refill : General Appearance: WD/WN, no apparent distress HEENT: normal ENT inspection Neck: full range of motion, normal inspection Respiratory: lungs clear, no respiratory distress, no accessory muscle use Cardiovascular: regular rate, rhythm, no murmur Gastrointestinal: non tender, soft Assessment/Plan Assessment/Plan Admission Diagnosis/Plan CVA. Parkinson disease. Unstable gait. Admission Status: Inpatient Order (span 2 midnights) Reason for Inpatient Admission: CVA with unstable gait. Clinical Quality Measures DVT/VTE Risk/Contraindication: Risk Factor Score Per Nursin RFS Level Per Nursing on Admit: 4+=Very High CHELSEA MATHIS DO Sep 08, 2018 08:03
--- NOTE | 2018-09-08 08:59 | Physical Therapy Evaluation ---
PT Evaluation-General Medical Diagnosis Admission Date Sep 07, 2018 at 18:10 Medical Diagnosis: CVA Onset Date: Sep 02, 2018 Therapy Diagnosis Therapy Diagnosis: impaired mobility, endurance, balance Height/Weight Height (Feet): 5 Height (Inches): 7.00 Weight (Pounds): 190 Weight (Ounces): 0.0 Precautions Precautions/Isolations: Fall Prevention, Standard Precautions Referral Physician: Bulmaro Reason for Referral: Evaluation/Treatment Medical History Pertinent Medical History: GERD, OA, Parkinson's Reviewed History: Yes Social History Home: Single Level Current Living Status: Spouse Entry Into Home: Stairs Without Railing PT Steps Into Home: 2 Prior/Core FIM Prior Level of Function Functional [place] Measure 0=Not Assessed/NA 4=Minimal Assistance 1=Total Assistance 5=Supervision or Setup 2=Maximal Assistance 6=Modified [place] 3=Moderate Assistance 7=Complete IndependenceIRFPAI Quality Coding Scale 6 Independent with activity with or without an assistive device 5 Patient requires set up or clean up by helper. Patient completes activity by themselves 4 Supervision or touching assist (CGA). [place] provide cues , steadying assist 3 The helper provides less than half the effort to complete the activity 2 The helper provides more than half the effort to complete the activity 1 Dependent. The helper does all the effort to complete an activity 7 Patient refused to complete or attempt activity 9 The patient did not perform the activity before the current illness or injury 88 Not attempted due to Medical conditions or safety concerns Bed Mobility: 7 Transfers (B,C,W/C) (FIM): 7 Gait: 7 PT Evaluation-Current Subjective Patient in bed pre tx, agrees to PT, has no complaints of pain other than a headache. Pt/Family Goals to be independent at home Objective Patient Orientation: Person, Place, Situation ROM/Strength ROM Lower Extremities WNL Strenght Lower Extremities right lower extremity (hip flexion 3+/5, knee flexion 4+/5, knee extension 4+/5 , dorsiflexion 5/5), left lower extremity (hip flexion 3+/5, knee flexion 4+/5, knee extension 4+/5, dorsiflexion 5/5) Neuromuscular (Tone, Coordination, Reflexes) Patient seems to have intact peripheral vision bilaterally, but has trouble tracking on both sides. Sensory Vision: Wears Glasses Hearing: Functional Sensation Right Lower Extremit: Intact Sensation Left Lower Extremity: Intact Transfers Functional [place] Measure 0=Not Assessed/NA 4=Minimal Assistance 1=Total Assistance 5=Supervision or Setup 2=Maximal Assistance 6=Modified [place] 3=Moderate Assistance 7=Complete IndependenceIRFPAI Quality Coding Scale 6 Independent with activity with or without an assistive device 5 Patient requires set up or clean up by helper. Patient completes activity by themselves 4 Supervision or touching assist (CGA). [place] provide cues , steadying assist 3 The helper provides less than half the effort to complete the activity 2 The helper provides more than half the effort to complete the activity 1 Dependent. The helper does all the effort to complete an activity 7 Patient refused to complete or attempt activity 9 The patient did not perform the activity before the current illness or injury 88 Not attempted due to Medical conditions or safety concerns Transfers (B, C, W/C) (FIM): 4 Scootin Rollin Roll Left to Right (QC): 4 Supine to/from Sit: 5 Sit to/from Stand: 4 Sit to Lying (QC): 4 Lying to Sitting/Side of Bed(Q: 4 Sit to Stand (QC): 4 Chair/Mju-qo-Dxmtk Xfer(QC): 4 Car Transfer (QC): 4 Patient performs bed mobility with SBA, supine to sit with SBA, sit to stand with CGA, transfers with CGA, car transfers with CGA. Gait Does the Patient Walk?: Yes Mode of Locomotion: Walk Anticipated Mode of Locomotion: Walk Gait (FIM): 4 Walk 10 feet (QC): 4 Walk 50 ft with 2 Turns(QC): 4 Walk 150 ft (QC): 4 Walking 10ft/uneven surface-QC: 3 Distance: 150', 100'x2 Gait Level of Assist: 4 Gait Persons Needed: 1 Gait Assistive Device: FWW Comments/Gait Description Patient can ambulate 150' with a rolling walker with CGA (including 50' with at least 2 turns of 90 degrees but needs min assist for 10' over an uneven surface) . Patient tends to lean forward with walker too far out in front and he leans to the left side. He has some observable left neglect when ambulating. Patient needs cues for safety and direction. Even though he leans to the left he never lost his balance (but is unsteady) except on the uneven surface. Wheelchair Training Does the Pt Use a Wheelchair?: No Stairs Stairs (FIM): 1 #of Steps: 1 Level of Assist: 4 1 Step (curb) (QC): 4 Assistive Device: Walker Patient can go up an down 1 steps using a rolling walker with CGA. Cues for safety and foot placement. Balance Sitting Static: Normal Sitting Dynamic: Normal Standing Static: Poor Standing Dynamic: Poor Treatment NuStep level 5 for 5 min and then patient had to use the restroom. Patient ambulated to the restroom, was able to get his pants down and up without assist except for balance. Assessment/Needs Patient has impaired mobility, endurance, balance, strength. He does lean to the left and forward during ambulation, he is at risk for a fall. Patient in bed post tx with nurse call, phone, tray, bed alarm on. Rehab Potential: Fair PT Short Term Goals Short Term Goals Time Frame: Sep 15, 2018 Transfers (B,C,W/C) (FIM): 5 Gait (FIM): 5 Gait Distance Comment: 200' Gait Level of Assist: 5 Gait Assistive Device: FWW PT Booster Plant Operator Goals Booster Plant Operator Goals PT Booster Plant Operator Goals Time Frame: Sep 29, 2018 Transfers (B,C,W/C) (FIM): 6 Sit to Lying (QC): 6 Lying-Sitting on Side/Bed(QC): 6 Sit to Stand (QC): 6 Rollin Roll Left to Right (QC): 6 Chair/Vhs-ra-Bqdnb Xfer(QC): 6 Car Transfer (QC): 6 Gait (FIM): 6 Distance: 300' Walk 10 feet (QC): 6 Walk 10ft-Uneven Surface(QC): 6 Walk 50ft with 2 Turns (QC): 6 Walk 150 ft (QC): 6 Gait Level of Assist: 6 Gait Assistive Device: FWW Stairs (FIM): 5 # of Steps: 12 1 Step (curb) (QC): 4 4 Steps (QC): 4 12 Steps (QC): 4 Stairs Level Of Assist: 5 PT Plan Problem List Problem List: Activity Tolerance, Functional Strength, Safety, Balance, Gait, Transfer, Bed Mobility Treatment/Plan Treatment Plan: Continue Plan of Care Treatment Plan: Bed Mobility, Education, Functional Activity Teodora, Functional Strength, Group Therapy, Gait, Safety, Therapeutic Exercise, Transfers Treatment Duration: Sep 29, 2018 Frequency: At least 5 of 7 days/Wk (IRF) Estimated Hrs Per Day: 1.5 hours per day Patient and/or Family Agrees t: Yes Safety Risks/Education Patient Education: Gait Training, Transfer Techniques, Steps, Correct Positioning, Safety Issues Teaching Recipient: Patient Teaching Methods: Demonstration, Discussion Response to Teaching: Reinforcement Needed Discharge Recommendations Plan Patient will perform bed mobility and transfer training, balance and endurance training, functional strengthening, stair training, gait training, and education , to improve functional mobility and independence at home. Therapy D/C Recommendations: Home w/ Family Support Time/GCodes Time In: 0800 Time Out: 0900 Total Billed Treatment Time: 60 Total Billed Treatment 1 visit EVM 30' GT 20' FA 10' WILDER LOBO PT Sep 08, 2018 08:59
[2018-09-08] MEDS: CEFDINIR 300 MG (OMNICEF) CAP PO SCH ×2 (09:02→20:10)
[2018-09-08] MEDS: ASPIRIN E.C. 81 MG (ECOTRIN) TAB PO SCH (09:02)
[2018-09-08] MEDS: LIDOCAINE (LIDODERM) 5% PATCH TOP SCH (09:03)
[2018-09-08] MEDS: PRAMIPEXOLE 0.5 MG TAB (MIRAPEX) PO SCH ×3 (09:03→20:12)
[2018-09-08] MEDS: CLOPIDOGREL 75 MG (PLAVIX) TABLET PO SCH (09:03)
--- NOTE | 2018-09-08 09:52 | PM & R (SOAP) Progress Note ---
Subjective This was a face to face visit with the patient. Date Seen by Provider: Sep 08, 2018 Time Seen by Provider: 08:00 Subjective/Events-last exam Patient was seen in his room this AM Adjusting well to unit Patient mod assist for transfers Date Identified: Sep 08, 2018 Time Identified: 08:00 Medication Intervention: Meds adjusted for pain -tylenol Review of Systems Neurological: Weakness, Incoordination Objective Physician Exam Last Set of Vital Signs Vital Signs Date Time Temp Pulse Resp B/P (MAP) Pulse Ox O2 Delivery O2 Flow Rate FiO2 09/08/18 05:52 98.6 68 20 153/83 (106) 96 Room Air Capillary Refill : I&O Intake and Output 09/08/18 00:00 Daily Weight Change No General: Alert, Oriented X3, Cooperative, No Acute Distress HEENT: Atraumatic, PERRLA, EOMI, Mucous Memb Moist/[place] Neck: Supple, No JVD Lungs: Clear to Auscultation Heart: Regular Rate Abdomen: Normal Bowel Sounds, Soft, No Tenderness Extremities: No Edema Skin: No Significant Lesion Neuro: Strength at 5/5 X4 Ext, Other (dysmetria on left with gait imbalance and Strength 5/5 in all limbs except LUE 4+/5) Psych/Mental Status: Mental Status NL Results Lab Data Laboratory Tests 09/08/18 05:50: White Blood Count 20.5H, Red Blood Count 5.20, Hemoglobin 15.8, Hematocrit 44, Mean Corpuscular Volume 85, Mean Corpuscular Hemoglobin 30, Mean Corpuscular Hemoglobin Concent 36, Red Cell Distribution Width 13.2, Platelet Count 168, Mean Platelet Volume 10.0, Sodium Level 131L, Potassium Level 3.8, Chloride Level 101, Carbon Dioxide Level 17L, Anion Gap 13, Blood Urea Nitrogen 15, Creatinine 0.70, Estimat Glomerular Filtration Rate > 60, BUN/Creatinine Ratio 21, Glucose Level 132H, Calcium Level 9.4, Corrected Calcium 9.5, Total Bilirubin 2.3H, Aspartate Amino Transf (AST/SGOT) 29, Alanine Aminotransferase ( ALT/SGPT) 40, Alkaline Phosphatase 74, Total Protein 6.9, Albumin 3.9 Assessment/Plan Assessment and Plan Left cerebellar infarct with mild left sided weakness and gait imbalance,ataxia Parkinsons d controlled with med Hyponatremia on replacement lab noted OA s/p Bilateral TKRS remote UTI with leukocytosis on antibiotic Plan PT/OT evals ongoing Team Conference next week Appreciate DR kelley note Trend labs Co-Morbidities that are continuing to impact the rehab process: (include details ) FLETCHER ALMANZAR MD Sep 08, 2018 09:52
[2018-09-08] MEDS: SODIUM CHLORIDE 1 GM TAB (NON-FORMULARY) PO SCH ×4 (10:20→20:13)
[2018-09-08] MEDS ORDERED: RASA1TAB PO (10:39)
[2018-09-08] MEDS ORDERED: PRAM1.5T3 PO (10:39)
[2018-09-08] MEDS ORDERED: NITR0.4T39 SL (10:39)
[2018-09-08] MEDS ORDERED: OMEP20CA12 PO (10:39)
[2018-09-08] MEDS ORDERED: LIDO1ADH41 TP (10:39)
--- NOTE | 2018-09-08 11:57 | ST Cognitive Linguistic Eval ---
Speech Evaluation-General Medical Diagnosis CVA Onset Date: Sep 02, 2018 Therapy Diagnosis Therapy Diagnosis: Cognition Precautions Precautions/Isolations: Fall Prevention, Standard Precautions Medical History Pertinent Medical History: GERD, OA, Parkinson's Reviewed History: Yes Social History Current Living Status: Spouse Speech PLF-Current Status Prior Level of Function pt was independent Subjective Pt in bed. Pleasant and cooperative. Pain Numeric Pain Scale: 0-No Pain Language Eval: Auditory Comprehends Simple Yes/No Ques: Functional Follows 1-Step Commands: Functional Follows Complex Directions: Moderate Follows General Conversations: Functional Language Eval: Verbal Language Completes Spontaneous Greeting: Functional Produces Auto, Serial Info: Functional Word Finding: Functional Requests Basic Needs: Functional States Basic Personal Info: Functional Expresses Complex Ideas: Functional Language Evaluation: Reading NA Objective Cognitive Domain Attention: WNL Memory: Mild Problem Solving: Mild Objective Impression Cognitive deficits in the areas of memory, problem solving and following directions. Communication/Social Cognition Comprehension: 6 Expression: 7 Social Interaction: 7 Problem Solvin Memory: 4 Speech Patient Assess Expression of Ideas/Wants: Expression (4) Understanding Verbal Content: Understands (4) Brief Interview-Mental Status: Yes Repetition of Three Words: Three (3) Temporal Orientation: Year: Correct (3) Temporal Orientation: Month: Accurate within 5 days(2) Temporal Orientation: Day: Correct (1) Recall : Wear to say "Sock": No, could not recall (0) Recall : Color: Yes, no cue required (2) Recall : Bed: Yes, no cue required (2) Speech Short Term Goals Short Term Goals Short Term Goals Pt will complete various auditory/visual memory activities with at least 90% accuracy. Pt will follow directions for various problem solving tasks with at least 90% accuracy. Time Frame-ST week Speech Line Tender Goals Line Tender Goals Pt will demonstrate functional cognition for safety and maximum independence in the home. Time Frame: 2 weeks Speech-Plan Patient/Family Goals Patient/Family Goals: to return home Treatment Plan Speech Therapy Treatment Plan: Modify Plan, See Comments (skilled ST recommended to address deficts) skilled ST to address memory, problem solving and following directions. Frequency: 5 times per week Estimated Hrs Per Day: .5 hour per day Rehab Potential: Fair Pt/Family Agrees to Plan: Yes Safety Risks/Education Teaching Recipient: Patient Teaching Methods: Discussion Response to Teaching: Verbalize Understanding Time Speech Therapy Time In: 09:45 Speech Therapy Time Out: 10:15 Total Billed Time: 30 Billed Treatment Time 1, SPSNDCOMP RAYO Xiong Sep 08, 2018 11:57
--- NOTE | 2018-09-08 13:00 | Occupational Therapy Eval ---
OT Evaluation-General/PLF Medical Diagnosis Admission Date Sep 07, 2018 at 18:10 Medical Diagnosis: CVA Onset Date: Sep 02, 2018 Therapy Diagnosis Therapy Diagnosis: impaired self care skills Height/Weight Height (Feet): 5 Height (Inches): 7.00 Weight (Pounds): 190 Weight (Ounces): 0.0 Precautions Precautions/Isolations: Fall Prevention, Standard Precautions Safety Interventions: None Referral Physician: Bulmaro Medical History Pertinent Medical History: GERD, OA, Parkinson's Additional Medical History HLD, bilateral TKA, OA Current History Pt admitted following CVA Reviewed History: Yes Social History Home: Single Level Current Living Status: Spouse Entry Into Home: Stairs Without Railing Steps Into Home: 2 ADL-Prior Level of Function Functional [place] Measure 0=Not Assessed/NA 4=Minimal Assistance 1=Total Assistance 5=Supervision or Setup 2=Maximal Assistance 6=Modified [place] 3=Moderate Assistance 7=Complete [place] ADL PLOF Comments Pt reports being independent prior to admission. Did not use any AD. 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 Drive Self: Yes OT Current Status Subjective Pt in bed, agrees to therapy. Pt states he is fatigued, but requests to shower this morning. Mental Status/Objective Patient Orientation: Person, Place, Situation Current Glasses/Contacts: Yes Hearing Aids: Yes (does not have them here) Dentures/Partials: No Hand Dominance: Right Upper Extremity ROM Grossly WFL Upper Extremity Strength Grossly 4/5 ADL-Treatment ADL-Current Pt supine to sit with SBA. Sit to stand with CGA. Gait to restroom with FWW. Pt transferred to toilet with minimal assistance using grab bar for safety. Pt able to complete toileting hygiene, requires min assist for balance during clothing management. Transfer to walk in shower with minimal assistance using grab bars, cues for safety. Seated bathing completed using hand held shower. Pt able to wash all areas, but requires minimal assistance for balance during lower body bathing. Don pullover shirt with SBA. Pt donned underwear and pants with minimal assistance for standing balance during pant hike. Dons socks with CGA for balance. Pt completed grooming tasks standing at sink. Pt brushed teeth and combed hair with CGA for balance. Pt fatigues with activity and requires occasional seated rest breaks. Transfer to EOB with CGA. Pt completed sit to supine with SBA. Pt resting in bed with needs met after session. Functional [place] Measure 0=Not Assessed/NA 4=Minimal Assistance 1=Total Assistance 5=Supervision or Setup 2=Maximal Assistance 6=Modified [place] 3=Moderate Assistance 7=Complete IndependenceIRFPAI Quality Coding Scale 6 Independent with activity with or without an assistive device 5 Patient requires set up or clean up by helper. Patient completes activity by themselves 4 Supervision or touching assist (CGA). [place] provide cues , steadying assist 3 The helper provides less than half the effort to complete the activity 2 The helper provides more than half the effort to complete the activity 1 Dependent. The helper does all the effort to complete an activity 7 Patient refused to complete or attempt activity 9 The patient did not perform the activity before the current illness or injury 88 Not attempted due to Medical conditions or safety concerns Grooming (FIM): 4 Oral Hygiene (QC): 4 Bathing (FIM): 4 Shower/Bathe Self (QC): 4 Upper Body Dressing (FIM): 5 Upper Body Dressing (QC): 4 Lower Body Dressing (FIM): 4 Lower Body Dressing (QC): 3 On/Off Footwear (QC): 3 Toileting (FIM): 4 Toileting Hygiene (QC): 3 Toilet/Commode Transfer (FIM): 4 Toilet Transfer (QC): 3 Shower Transfer (FIM): 4 Education OT Patient Education: Rehab process Teaching Recipient: Patient Teaching Methods: Discussion Response to Teaching: Verbalize Understanding OT Short Term Goals Short Term Goals Time Frame: Sep 15, 2018 Grooming(FIM): 5 Lower Body Dressing(FIM): 5 Toilet/Commode Transfer(FIM): 5 1=Demonstrate adherence to instructed precautions during ADL tasks. 2=Patient will verbalize/demonstrate understanding of assistive devices/ modifications for ADL. 3=Patient will improve strength/tolerance for activity to enable patient to perform ADL's. OT Immigration Judge Goals Immigration Judge Goals Time Frame: Sep 29, 2018 Eating (FIM): 7 Eating (QC): 6 Groomin Oral Hygiene (QC): 6 Bathing(FIM): 5 Shower/Bathe Self (QC): 5 Upper Body Dressing(FIM): 6 Upper Body Dressing (QC): 6 Lower Body Dressing(FIM): 6 Lower Body Dressing (QC): 6 On/Off Footwear (QC): 6 Toileting(FIM): 6 Toileting Hygiene (QC): 6 Toilet/Commode Transfer(FIM): 6 Toilet/Commode Transfer (QC): 6 Shower Transfer(FIM): 5 Additional Goals: 1-Demonstrate ADL Tasks, 2-Verbalize Understanding, 3- ImproveStrength/Teodora 1=Demonstrate adherence to instructed precautions during ADL tasks. 2=Patient will verbalize/demonstrate understanding of assistive devices/ modifications for ADL. 3=Patient will improve strength/tolerance for activity to enable patient to perform ADL's. OT Education/Plan Problem List/Assessment Assessment: Decreased Activ Tolerance, Decreased UE Strength, Dependent Transfers, Impaired Funct Balance, Impaired Self-Care Skills Pt admitted to ARU following CVA. Pt demonstrates decreased ADL functioning, strength, balance, and activity tolerance. Pt to benefit from skilled OT intervention for ADL training, transfers, strengthening, and home safety education to increase independence and allow safe discharge home. Discharge Recommendations Plan/Recommendations: Continue POC Treatment Plan/Plan of Care Treatment,Training & Education: Yes Patient would benefit from OT for education, treatment and training to promote independence in ADL's, mobility, safety and/or upper extremity function for ADL' s. Plan of Care: ADL Retraining, Functional Mobility, Group Exercise/Act as Ind, UE Funct Exercise/Act Treatment Duration: Sep 29, 2018 Frequency: At least 5 of 7 days/Wk (IRF) Estimated Hrs Per Day: 1.5 hours per day Agreement: Yes Rehab Potential: Fair Time/GCodes Start Time: 10:30 Stop Time: 11:30 Total Time Billed (hr/min): 60 Billed Treatment Time 1 visit, EVM(15minutes), ADLx3(45minutes) TOPHER MENG OT Sep 08, 2018 12:59
--- NOTE | 2018-09-08 14:33 | Therapy Group Daily Note ---
Therapy Daily Group Note Patient Education Topic Other List Below (memory strategies) Other/Notes Pt ambulated using FWW to OT/PT group in [facility]. Group consisted of introductions (name, place living, what makes you famous), socialization, memory education, memory strategies, memory activity and senses with aging. Pt introduced self appropriately and actively listened to peers. Pt was able to verbalize understanding of educational topics and give strategies for memory. Pt contributed to conversations with peers and group discussions throughout group. Pt ambulated using FWW back to room and laid down in bed. Call light/ phone in reach. Family present in room. All needs met in room. Start Time: 13:00 Stop Time: 14:10 Total Billed Treatment Time: 70 Total Billed Treatment 1-GRP DAVID PATTERSON Sep 08, 2018 14:33
[2018-09-08 17:35] VITALS: BP 149/87
[2018-09-08] MEDS: LIDOCAINE PATCH REMOVAL TP SCH (20:14)
[2018-09-09 05:44] LABS: HEMOGLOBIN 14.4 G/DL (13.3-17.7); RED BLOOD COUNT 4.73 10^6/uL (4.35-5.85); RED CELL DISTRIBUTION WIDTH 13.1 % (10.0-14.5); WHITE BLOOD COUNT 10.1 10^3/uL (4.3-11.0)
[2018-09-09 05:46] VITALS: BP 128/66
[2018-09-09 06:03] LABS: BUN/CREATININE RATIO 21; CARBON DIOXIDE 19 MMOL/L (21-32); CHLORIDE 105 MMOL/L (98-107); CREATININE SERUM 0.75 MG/DL (0.60-1.30); GFR ESTIMATED > 60; GLUCOSE 108 MG/DL (70-105); POTASSIUM 3.8 MMOL/L (3.6-5.0); SODIUM 136 MMOL/L (135-145)
[2018-09-09] MEDS: PANTOPRAZOLE 40 MG (PROTONIX) TAB PO SCH (06:07)
--- NOTE | 2018-09-09 08:41 | Occupational Ther Daily Note ---
OT Current Status-Daily Note Subjective Pt alert and in bed upon therapist arrival. Pt reporting no complaints of pain , and willing to participate in OT services this date. Mental Status/Objective Functional [place] Measure 0=Not Assessed/NA 4=Minimal Assistance 1=Total Assistance 5=Supervision or Setup 2=Maximal Assistance 6=Modified [place] 3=Moderate Assistance 7=Complete [place] ADL-Treatment Functional [place] Measure 0=Not Assessed/NA 4=Minimal Assistance 1=Total Assistance 5=Supervision or Setup 2=Maximal Assistance 6=Modified [place] 3=Moderate Assistance 7=Complete IndependenceIRFPAI Quality Coding Scale 6 Independent with activity with or without an assistive device 5 Patient requires set up or clean up by helper. Patient completes activity by themselves 4 Supervision or touching assist (CGA). [place] provide cues , steadying assist 3 The helper provides less than half the effort to complete the activity 2 The helper provides more than half the effort to complete the activity 1 Dependent. The helper does all the effort to complete an activity 7 Patient refused to complete or attempt activity 9 The patient did not perform the activity before the current illness or injury 88 Not attempted due to Medical conditions or safety concerns Other Treatment Pt participated in bed mobility and functional transfers/ambulation with FWW, gait belt, using CGA. Pt required verbal cues for proper technique. Pt participated in weight bearing techniques through LUE to improve strength and coordination following CVA. Pt performed LUE ther ex with use of 4# free weight through gross planes of motion, against gravity, in order to improve strength and functional use of UE during ADLs. OT Short Term Goals Short Term Goals Time Frame: Sep 15, 2018 Grooming(FIM): 5 Lower Body Dressing(FIM): 5 Toilet/Commode Transfer(FIM): 5 1=Demonstrate adherence to instructed precautions during ADL tasks. 2=Patient will verbalize/demonstrate understanding of assistive devices/ modifications for ADL. 3=Patient will improve strength/tolerance for activity to enable patient to perform ADL's. OT Microstrategy Bi Developer Goals Care Home Goals Time Frame: Sep 29, 2018 Eating (FIM): 7 Eating (QC): 6 Groomin Oral Hygiene (QC): 6 Bathing(FIM): 5 Shower/Bathe Self (QC): 5 Upper Body Dressing(FIM): 6 Upper Body Dressing (QC): 6 Lower Body Dressing(FIM): 6 Lower Body Dressing (QC): 6 On/Off Footwear (QC): 6 Toileting(FIM): 6 Toileting Hygiene (QC): 6 Toilet/Commode Transfer(FIM): 6 Toilet/Commode Transfer (QC): 6 Shower Transfer(FIM): 5 Additional Goals: 1-Demonstrate ADL Tasks, 2-Verbalize Understanding, 3- ImproveStrength/Teodora 1=Demonstrate adherence to instructed precautions during ADL tasks. 2=Patient will verbalize/demonstrate understanding of assistive devices/ modifications for ADL. 3=Patient will improve strength/tolerance for activity to enable patient to perform ADL's. OT Education/Plan Problem List/Assessment Pt admitted to ARU following CVA. Pt demonstrates decreased ADL functioning, strength, balance, and activity tolerance. Pt to benefit from skilled OT intervention for ADL training, transfers, strengthening, and home safety education to increase independence and allow safe discharge home. Discharge Recommendations Plan/Recommendations: Continue POC Treatment Plan/Plan of Care Patient would benefit from OT for education, treatment and training to promote independence in ADL's, mobility, safety and/or upper extremity function for ADL' s. Plan of Care: ADL Retraining, Functional Mobility, Group Exercise/Act as Ind, UE Funct Exercise/Act Treatment Duration: Sep 29, 2018 Frequency: At least 5 of 7 days/Wk (IRF) Estimated Hrs Per Day: 1.5 hours per day Agreement: Yes Rehab Potential: Fair Time/GCodes Start Time: 08:05 Stop Time: 08:40 Billed Treatment Time 2TE, 1FMARIA A CURRIE OT Sep 09, 2018 08:41
[2018-09-09] MEDS: ASPIRIN E.C. 81 MG (ECOTRIN) TAB PO SCH (09:03)
[2018-09-09] MEDS: CEFDINIR 300 MG (OMNICEF) CAP PO SCH (09:03)
[2018-09-09] MEDS: CLOPIDOGREL 75 MG (PLAVIX) TABLET PO SCH (09:04)
[2018-09-09] MEDS: SODIUM CHLORIDE 1 GM TAB (NON-FORMULARY) PO SCH ×4 (09:04→20:36)
[2018-09-09] MEDS: PRAMIPEXOLE 0.5 MG TAB (MIRAPEX) PO SCH ×3 (09:04→20:36)
[2018-09-09] MEDS: LIDOCAINE (LIDODERM) 5% PATCH TOP SCH (09:04)
--- NOTE | 2018-09-09 10:22 | Physical Therapy Daily Note ---
PT Daily Note-Current Subjective Patient agrees to PT. Pain Numeric Pain Scale: 0-No Pain Location: No Pain Reported Mental Status Patient Orientation: Normal For Age Transfers Functional [place] Measure 0=Not Assessed/NA 4=Minimal Assistance 1=Total Assistance 5=Supervision or Setup 2=Maximal Assistance 6=Modified [place] 3=Moderate Assistance 7=Complete IndependenceIRFPAI Quality Coding Scale 6 Independent with activity with or without an assistive device 5 Patient requires set up or clean up by helper. Patient completes activity by themselves 4 Supervision or touching assist (CGA). [place] provide cues , steadying assist 3 The helper provides less than half the effort to complete the activity 2 The helper provides more than half the effort to complete the activity 1 Dependent. The helper does all the effort to complete an activity 7 Patient refused to complete or attempt activity 9 The patient did not perform the activity before the current illness or injury 88 Not attempted due to Medical conditions or safety concerns Transfers (B, C, W/C) (FIM): 4 Scootin Supine to/from Sit: 5 Sit to/from Stand: 4 Sit to Lying (QC): 5 Sit to Stand (QC): 4 Chair/Xqz-ph-Rupge Xfer(QC): 4 Bed to/from Chair: 4 Car Transfer (QC): 5 CGA for safety Gait Training Gait (FIM): 4 Distance (FIM): 3=150 ft Distance: 150' x 2 Walk 10 feet (QC): 4 Walk 50 ft with 2 Turns(QC): 4 Walk 150 ft (QC): 4 Gait Level of Assist: 4 Gait Assistive Device: FWW slight lean to left with gait/skilled verbal instruction for body placement in FWW to conserve energy with ambulation Exercises NuStep Minutes: 15 NuStep Workload: 2 (to improve reciprocal movement with functional mobility) Assessment Patient progressing with treatment plan and is highly motivated to continue. PT to increase activity as tolerated by patient. PT Short Term Goals Short Term Goals Time Frame: Sep 15, 2018 Gait (FIM): 5 Gait Distance Comment: 200' Gait Level of Assist: 5 Gait Assistive Device: FWW PT Warrant Clerk Goals Warrant Clerk Goals PT Warrant Clerk Goals Time Frame: Sep 29, 2018 Transfers (B,C,W/C) (FIM): 6 Sit to Lying (QC): 6 Lying-Sitting on Side/Bed(QC): 6 Sit to Stand (QC): 6 Rollin Roll Left to Right (QC): 6 Chair/Cdc-dk-Gtkfm Xfer(QC): 6 Car Transfer (QC): 6 Gait (FIM): 6 Distance: 300' Walk 10 feet (QC): 6 Walk 10ft-Uneven Surface(QC): 6 Walk 50ft with 2 Turns (QC): 6 Walk 150 ft (QC): 6 Gait Level of Assist: 6 Gait Assistive Device: FWW Stairs (FIM): 5 # of Steps: 12 1 Step (curb) (QC): 4 4 Steps (QC): 4 12 Steps (QC): 4 Stairs Level Of Assist: 5 PT Plan Treatment/Plan Treatment Plan: Continue Plan of Care Treatment Plan: Bed Mobility, Education, Functional Activity Teodora, Functional Strength, Group Therapy, Gait, Safety, Therapeutic Exercise, Transfers Treatment Duration: Sep 29, 2018 Frequency: At least 5 of 7 days/Wk (IRF) Estimated Hrs Per Day: 1.5 hours per day Patient and/or Family Agrees t: Yes Time/GCodes Time In: 945 Time Out: 1015 Total Billed Treatment Time: 30 Total Billed Treatment 1 visit EX 15 min GT 15 min MAT PAYTON PT Sep 09, 2018 10:22
--- NOTE | 2018-09-09 11:58 | Progress Note-Hospitalist ---
Subjective HPI/CC On Admission Date Seen by Provider: Sep 09, 2018 Time Seen by Provider: 11:45 Subjective/Events-last exam Re: And had called me earlier reporting left hand tingling on the same side that was affected by the stroke Patient maintained on aspirin and Plavix and statin therapy He now reports that it is still burning but it is improving and it's only periodic Bowels are slowed up but better than the diarrhea he had after taking multiple bowel regimen medications Denies any pain Urinating well On antibiotic so will evaluate the condition that is treating that his white count is normal down from elevation at 20,000 Checked meds and labs Review of Systems Neurological: Numbness (left hand) Objective Exam Vital Signs Vital Signs Date Time Temp Pulse Resp B/P (MAP) Pulse Ox O2 Delivery O2 Flow Rate FiO2 09/09/18 05:46 97.4 59 16 128/66 (86) 96 Room Air Capillary Refill : General Appearance: No Apparent Distress, WD/WN, Chronically ill Respiratory: Chest Non Tender, Lungs Clear, Normal Breath Sounds, No Accessory Muscle Use, No Respiratory Distress Cardiovascular: Regular Rate, Rhythm, No Edema, No Gallop, No JVD, No Murmur, Normal Peripheral Pulses Neurologic/Psychiatric: Alert, Oriented x3, Normal Mood/Affect, Motor Weakness (left arm and hand and leg), Sensory Deficit (left hand) Skin: Normal Color, Warm/Dry Results/Procedures Lab Laboratory Tests 09/09/18 05:34 Patient resulted labs reviewed. Assessment/Plan Assessment and Plan Assess & Plan/Chief Complaint Assessment: Left cerebellar infarct with residual mild left sided weakness Left hand tingling today maintained on ASA and Plavix without new neuro deficits PD Hyponatremia on salt tablets Leukocytosis of uncertain source placed on Cefdinir but now completed resolved so will research condition it is treating and may be able to DC Plan: Evaluate DC abx if able Monitor left hand tingling only Maintain ASA Plavix Diagnosis/Problems Diagnosis/Problems (1) CVA (cerebral vascular accident) Status: Acute Qualifiers: CVA mechanism: unspecified Qualified Codes: I63.9 - Cerebral infarction, unspecified (2) Numbness and tingling in left hand Status: Acute (3) Hyponatremia Status: Acute (4) Parkinson disease Status: Chronic (5) Falls Status: Acute Qualifiers: Encounter type: subsequent encounter Qualified Codes: W19.XXXD - Unspecified fall, subsequent encounter (6) Leukocytosis Status: Resolved Qualifiers: Leukocytosis type: unspecified Qualified Codes: D72.829 - Elevated white blood cell count, unspecified Clinical Quality Measures DVT/VTE Risk/Contraindication: Risk Factor Score Per Nursin RFS Level Per Nursing on Admit: 4+=Very High KATHERINE TSE DO Sep 09, 2018 11:58
[2018-09-09 16:15] VITALS: BP 131/79
[2018-09-09] MEDS: ATORVASTATIN 40 MG (LIPITOR) TABLET PO SCH (20:35)
[2018-09-09] MEDS: LIDOCAINE PATCH REMOVAL TP SCH (20:37)
[2018-09-10 05:17] VITALS: BP 150/88
[2018-09-10] MEDS: PANTOPRAZOLE 40 MG (PROTONIX) TAB PO SCH (08:09)
[2018-09-10] MEDS: LIDOCAINE (LIDODERM) 5% PATCH TOP SCH (08:09)
[2018-09-10] MEDS: ASPIRIN E.C. 81 MG (ECOTRIN) TAB PO SCH (08:09)
[2018-09-10] MEDS: SODIUM CHLORIDE 1 GM TAB (NON-FORMULARY) PO SCH ×4 (08:09→20:38)
[2018-09-10] MEDS: PRAMIPEXOLE 0.5 MG TAB (MIRAPEX) PO SCH ×3 (08:09→20:37)
[2018-09-10] MEDS: CLOPIDOGREL 75 MG (PLAVIX) TABLET PO SCH (08:09)
[2018-09-10] MEDS: ONDANSETRON 8 MG (ZOFRAN) ORAL DISSOLVE TAB PO PRN (17:23)
[2018-09-10 17:48] VITALS: BP 136/62
[2018-09-10] MEDS: ATORVASTATIN 40 MG (LIPITOR) TABLET PO SCH (20:37)
[2018-09-10] MEDS: LIDOCAINE PATCH REMOVAL TP SCH (20:41)
--- NOTE | 2018-09-10 21:15 | PM & R (SOAP) Progress Note ---
Subjective This was a face to face visit with the patient. Date Seen by Provider: Sep 10, 2018 Time Seen by Provider: 21:10 Subjective/Events-last exam Patient was seen in his room this evening Patient min assist for transfers Objective Physician Exam Last Set of Vital Signs Vital Signs Date Time Temp Pulse Resp B/P (MAP) Pulse Ox O2 Delivery O2 Flow Rate FiO2 09/10/18 17:48 98.1 66 18 136/62 (86) 97 Room Air Capillary Refill : I&O Intake and Output 09/10/18 00:00 Intake Total 1160 ml Balance 1160 ml Intake Oral 1160 ml # Voids 5 # Bowel Movements 2 General: Alert, Oriented X3, Cooperative, No Acute Distress HEENT: Atraumatic, PERRLA, EOMI, Mucous Memb Moist/[place] Neck: Supple, No JVD Lungs: Clear to Auscultation Heart: Regular Rate Abdomen: Normal Bowel Sounds, Soft, No Tenderness Extremities: No Edema Skin: No Significant Lesion Neuro: Strength at 5/5 X4 Ext, Other (dysmetria on left with gait imbalance and Strength 5/5 in all limbs except LUE 4+/5) Psych/Mental Status: Mental Status NL Results Lab Data Laboratory Tests 09/08/18 05:50: White Blood Count 20.5H, Red Blood Count 5.20, Hemoglobin 15.8, Hematocrit 44, Mean Corpuscular Volume 85, Mean Corpuscular Hemoglobin 30, Mean Corpuscular Hemoglobin Concent 36, Red Cell Distribution Width 13.2, Platelet Count 168, Mean Platelet Volume 10.0, Sodium Level 131L, Potassium Level 3.8, Chloride Level 101, Carbon Dioxide Level 17L, Anion Gap 13, Blood Urea Nitrogen 15, Creatinine 0.70, Estimat Glomerular Filtration Rate > 60, BUN/Creatinine Ratio 21, Glucose Level 132H, Calcium Level 9.4, Corrected Calcium 9.5, Total Bilirubin 2.3H, Aspartate Amino Transf (AST/SGOT) 29, Alanine Aminotransferase ( ALT/SGPT) 40, Alkaline Phosphatase 74, Total Protein 6.9, Albumin 3.9 09/09/18 05:34: White Blood Count 10.1, Red Blood Count 4.73, Hemoglobin 14.4, Hematocrit 42, Mean Corpuscular Volume 88, Mean Corpuscular Hemoglobin 30, Mean Corpuscular Hemoglobin Concent 35, Red Cell Distribution Width 13.1, Platelet Count 170, Mean Platelet Volume 10.0, Sodium Level 136, Potassium Level 3.8, Chloride Level 105, Carbon Dioxide Level 19L, Anion Gap 12, Blood Urea Nitrogen 16, Creatinine 0.75, Estimat Glomerular Filtration Rate > 60, BUN/Creatinine Ratio 21, Glucose Level 108H, Calcium Level 9.0 Assessment/Plan Assessment and Plan Left cerebellar stroke with gait imbalance Parkinsons D controlled with med Hyponatremia on replacement improved lab noted OA s/p Bilateral TKRS remote UTI with leukocytosis repeat lab ordered on Omnicef Plan Continue PT/OT Team Conference 09-13-18 Co-Morbidities that are continuing to impact the rehab process: (include details ) FLETCHER ALMANZAR MD Sep 10, 2018 21:15
[2018-09-11 06:00] VITALS: BP 128/75
[2018-09-11] MEDS: PANTOPRAZOLE 40 MG (PROTONIX) TAB PO SCH (06:56)
--- NOTE | 2018-09-11 07:50 | Progress Note (SOAP) ---
Subjective Time Seen by a Provider: 07:47 Subjective/Events-last exam Patient vomited yesterday. Patient not nauseous today. White blood cell count from 20,000 now 10,000. Sodium from 131 now 136. Patient has UTI. We'll recheck UA. Patient feels he is improving Objective Exam Vital Signs Date Time Temp Pulse Resp B/P (MAP) Pulse Ox O2 Delivery O2 Flow Rate FiO2 09/11/18 06:00 97.9 58 18 128/75 (92) 94 Room Air 09/10/18 17:48 98.1 66 18 136/62 (86) 97 Room Air I & O 09/11/18 07:00 Intake Total 1260 ml Balance 1260 ml Capillary Refill : General Appearance: No Apparent Distress, WD/WN HEENT: Normal ENT Inspection Neck: Normal Inspection Respiratory: Chest Non Tender, No Accessory Muscle Use, No Respiratory Distress Cardiovascular: Regular Rate, Rhythm, No Murmur Gastrointestinal: non tender, soft Assessment/Plan Assessment/Plan Assess & Plan/Chief Complaint CVA. Parkinson disease. Unstable gait.. . 09/11/18. CVA. Parkinson disease. Unstable gait. UTI. Leukocytosis. Hyponatremia better. To check UTI and sodium on Tuesday Clinical Quality Measures DVT/VTE Risk/Contraindication: Risk Factor Score Per Nursin RFS Level Per Nursing on Admit: 4+=Very High CHELSEA MATHIS DO Sep 11, 2018 07:50
[2018-09-11] MEDS: ASPIRIN E.C. 81 MG (ECOTRIN) TAB PO SCH (08:02)
[2018-09-11] MEDS: SODIUM CHLORIDE 1 GM TAB (NON-FORMULARY) PO SCH ×4 (08:02→20:30)
[2018-09-11] MEDS: CLOPIDOGREL 75 MG (PLAVIX) TABLET PO SCH (08:02)
--- NOTE | 2018-09-11 08:37 | Individualized Plan of Care ---
Individualized Plan of Care Rehab Nursing IPOC Order Admission Date Sep 07, 2018 at 18:10 Current Orders Orders Ambulate 08,12,20 (09/07/18 18:38) Sequential Compression Device 08,20 (09/07/18 18:38) Dvt/Vte Risk - Notifiy Physici 08 (09/07/18 18:38) Admission Order(Inpt,Obs,Sdc) (09/07/18 18:40) Medical Authorization Specialist-Inpt Rehab Con (09/07/18 18:40) Rehab Nursing Orders-Ipoc (09/07/18 18:40) Physical Therapy Rehab Orders (09/07/18 18:40) Occupational Therapy Rehab Ord (09/07/18 18:40) Speech Therapy Rehab Orders (09/07/18 18:40) Turn And Reposition Q2HR (09/07/18 18:40) Intake & Output 06,14,22 (09/07/18 18:40) Precautions (Aru) (09/07/18 18:40) Weekly Weight (Lbs) WEEK (09/07/18 18:40) Code/Resuscitation (09/07/18 18:40) Initiate Admission Nursing Pro .admission (09/07/18 18:40) General/Regular (09/07/18 Dinner) Aspirin Enteric Coated Tablet (Ecotrin T (09/08/18 09:00) Atorvastatin Tablet (Lipitor) (09/07/18 21:00) Clopidogrel Tablet (Plavix Tablet) (09/08/18 09:00) Lidocaine Patch (Lidoderm 5% Patch) (09/08/18 09:00) Nitroglycerin 0.4 Mg Btl 25's (Nitrostat (09/07/18 18:45) Pantoprazole Tablet (Protonix Tablet) (09/08/18 07:00) Pramipexole Tablet (Mirapex Tablet) (09/07/18 21:00) Pharmacy Communication (Pharmacy Communi (09/07/18 18:45) Patch Removal (Patch Removal) (09/07/18 21:00) Heart Healthy (09/08/18 Breakfast) Cbc No Diff (09/08/18 06:00) Comprehensive Metabolic Panel (09/08/18 06:00) Consult Physician (09/07/18 19:54) Cefdinir Capsule (Omnicef Capsule) (09/07/18 21:00) Acetaminophen Tablet/Caplet (Tylenol T (09/07/18 21:15) Acetaminophen Tablet/Caplet (Tylenol T (09/07/18 21:17) Basic Metabolic Panel (09/09/18 06:00) Cbc No Diff (09/09/18 06:00) Na Chloride Tab (Non-Formulary (Sodium C (09/08/18 09:30) Patient Visit (09/08/18 ) Pt Eval Moderate Complexity (09/08/18 ) Functional Activities, Ea 15 (09/08/18 ) Gait Training, Ea 15 Min (09/08/18 ) Patient Visit (09/08/18 ) Patient Visit (09/08/18 ) Speech Sound Lang Comp (09/08/18 ) Patient Visit (09/09/18 ) Exercise Therap, Ea 15 Min (09/09/18 ) Gait Training, Ea 15 Min (09/09/18 ) Ondansetron Oral Dissolve Tab (Zofran O (09/10/18 17:30) Ua Culture If Indicated (09/11/18 07:58) Rehab Nursing Orders: Ongoing Assess. of Cognitive Status, Ongoing Assess. of Function Status, Disease Management & Educaiton, DVT Prophylaxis, Fall Prevention, Fluid/Electrolyte/Nutrition Mgmt, Infection Prevention, Medication Management & Education, Management of Risks & Complications, Management of Skin Intergrity, Nutrition Management, Pain Management, Patient/Family Support, Safety Management PT IPOC Problem List: Activity Tolerance, Functional Strength, Safety, Balance, Gait, Transfer, Bed Mobility Treatment Plan: Continue Plan of Care Bed Mobility, Education, Functional Activity Teodora, Functional Strength, Group Therapy, Gait, Safety, Therapeutic Exercise, Transfers Treatment Duration: Sep 29, 2018 Frequency: At least 5 of 7 days/Wk (IRF) Estimated Hrs Per Day: 1.5 hours per day OT IPOC Problems: Decreased Activ Tolerance, Decreased UE Strength, Dependent Transfers , Impaired Funct Balance, Impaired Self-Care Skills OT Treatment, Training and Edu: Yes OT Problems Pt admitted to ARU following CVA. Pt demonstrates decreased ADL functioning, strength, balance, and activity tolerance. Pt to benefit from skilled OT intervention for ADL training, transfers, strengthening, and home safety education to increase independence and allow safe discharge home. Plan of Care: ADL Retraining, Functional Mobility, Group Exercise/Act as Ind, UE Funct Exercise/Act Treatment Duration: Sep 29, 2018 Frequency: At least 5 of 7 days/Wk (IRF) Estimated Hrs Per Day: 1.[address] IPOC Speech Therapy Treatment Plan: Modify Plan, See Comments (skilled ST recommended to address deficts) Treatment Duration: Sep 18, 2018 Frequency: 5 times per week Estimated Hrs Per Day: .5 hour per day Medical Authorization Specialist/Case Mgmt Medical Authorization Specialist/Case Managemen: Discharge Planning, Patient/Family Counseling Dietitian/Human Service Specialist Dietitian/Human Service Specialist to monitor nutritional status and make changes and/or recommendations as needed and work with speech pathology on dietary upgrades as the occur. 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 FLETCHER ALMANZAR MD Sep 11, 2018 08:37
--- NOTE | 2018-09-11 08:41 | PM & R (SOAP) Progress Note ---
Subjective This was a face to face visit with the patient. Date Seen by Provider: Sep 11, 2018 Time Seen by Provider: 07:55 Subjective/Events-last exam Patient was seen in his room this AM patient Min assist for transfers Labs noted Hyponatremia improved with replacement and leukocytosis improved with antibiotic RX for UTI Objective Physician Exam Last Set of Vital Signs Vital Signs Date Time Temp Pulse Resp B/P (MAP) Pulse Ox O2 Delivery O2 Flow Rate FiO2 09/11/18 06:00 97.9 58 18 128/75 (92) 94 Room Air Capillary Refill : I&O Intake and Output 09/11/18 00:00 Intake Total 860 ml Balance 860 ml Intake Oral 860 ml # Voids 7 # Bowel Movements 1 General: Alert, Oriented X3, Cooperative, No Acute Distress HEENT: Atraumatic, PERRLA, EOMI, Mucous Memb Moist/[place] Neck: Supple, No JVD Lungs: Clear to Auscultation Heart: Regular Rate Abdomen: Normal Bowel Sounds, Soft, No Tenderness Extremities: No Edema Skin: No Significant Lesion Neuro: Strength at 5/5 X4 Ext, Other (dysmetria on left with gait imbalance and Strength 5/5 in all limbs except LUE 4+/5) Psych/Mental Status: Mental Status NL Results Lab Data Laboratory Tests 09/09/18 05:34: White Blood Count 10.1, Red Blood Count 4.73, Hemoglobin 14.4, Hematocrit 42, Mean Corpuscular Volume 88, Mean Corpuscular Hemoglobin 30, Mean Corpuscular Hemoglobin Concent 35, Red Cell Distribution Width 13.1, Platelet Count 170, Mean Platelet Volume 10.0, Sodium Level 136, Potassium Level 3.8, Chloride Level 105, Carbon Dioxide Level 19L, Anion Gap 12, Blood Urea Nitrogen 16, Creatinine 0.75, Estimat Glomerular Filtration Rate > 60, BUN/Creatinine Ratio 21, Glucose Level 108H, Calcium Level 9.0 Assessment/Plan Assessment and Plan Left cerebellar stroke with mild left sided weakness and gait imbalance,ataxia Hyponatremia improved UTI with leukocytosis improved on Omnicef [place] D controlled with med OA s/p Bilateral TKRS remote Plan Continue PT/OT Repeat U/A Team Conference 09-13-18 Trend labs Co-Morbidities that are continuing to impact the rehab process: (include details ) FLETCHER ALMANZAR MD Sep 11, 2018 08:41
--- NOTE | 2018-09-11 09:10 | Physical Therapy Daily Note ---
PT Daily Note-Current Subjective Patient was awake in bed this morning when therapy arrived. Patient agreed to get up for therapy. Pain Numeric Pain Scale: 0-No Pain Location: No Pain Reported Mental Status Patient Orientation: Normal For Age Transfers Functional [place] Measure 0=Not Assessed/NA 4=Minimal Assistance 1=Total Assistance 5=Supervision or Setup 2=Maximal Assistance 6=Modified [place] 3=Moderate Assistance 7=Complete IndependenceIRFPAI Quality Coding Scale 6 Independent with activity with or without an assistive device 5 Patient requires set up or clean up by helper. Patient completes activity by themselves 4 Supervision or touching assist (CGA). Combes provide cues , steadying assist 3 The helper provides less than half the effort to complete the activity 2 The helper provides more than half the effort to complete the activity 1 Dependent. The helper does all the effort to complete an activity 7 Patient refused to complete or attempt activity 9 The patient did not perform the activity before the current illness or injury 88 Not attempted due to Medical conditions or safety concerns Transfers (B, C, W/C) (FIM): 4 Scootin Rollin Sit to/from Stand: 4 Weight Bearing Right Lower Extremity: Right Full Weight Bearing Left Lower Extremity: Left Full Weight Bearing Gait Training Does the Patient Walk?: Yes Gait (FIM): 5 Distance (FIM): 3=150 ft Distance: 300' Gait Level of Assist: 4 Gait Persons Needed: 1 Gait Assistive Device: FWW Patient cued to look for vertical lines on orozco or structures in the building to cue him what is upright. Patient reminded to use this to help him notice when he is leaning to his left side. Patient also cued to lift his knees higher during ambulation in order to avoid shuffling his feet. Exercises Standing: Sit to Stand Patient focused on narrow POONAM and tandem stance for balance with reaching activities. NuStep Minutes: 10 NuStep Workload: 5 Assessment Patient continues to show good improvement with ambulation. Blaze was able to ambulate with a FWW for 300'ft but did begin to lean to his left side after he became fatigued. SBQC introduced during therapy but has slowed his gait pattern to maintain his balance. Patient required CGA and cueing throughout treatment to ensure his safety. Patient will continue to benefit from gait and endurance training to improve overall function for ambulation. PT Short Term Goals Short Term Goals Time Frame: Sep 15, 2018 Gait (FIM): 5 Gait Distance Comment: 200' Gait Level of Assist: 5 Gait Assistive Device: FWW PT Residential Coordinator Goals Residential Coordinator Goals PT Residential Coordinator Goals Time Frame: Sep 29, 2018 Transfers (B,C,W/C) (FIM): 6 Sit to Lying (QC): 6 Lying-Sitting on Side/Bed(QC): 6 Sit to Stand (QC): 6 Rollin Roll Left to Right (QC): 6 Chair/Qvn-tr-Syads Xfer(QC): 6 Car Transfer (QC): 6 Gait (FIM): 6 Distance: 300' Walk 10 feet (QC): 6 Walk 10ft-Uneven Surface(QC): 6 Walk 50ft with 2 Turns (QC): 6 Walk 150 ft (QC): 6 Gait Level of Assist: 6 Gait Assistive Device: FWW Stairs (FIM): 5 # of Steps: 12 1 Step (curb) (QC): 4 4 Steps (QC): 4 12 Steps (QC): 4 Stairs Level Of Assist: 5 PT Plan Problem List Problem List: Activity Tolerance, Functional Strength, Safety, Balance, Gait, Transfer Treatment/Plan Treatment Plan: Continue Plan of Care Treatment Plan: Bed Mobility, Education, Functional Activity Teodora, Functional Strength, Group Therapy, Gait, Safety, Therapeutic Exercise, Transfers Treatment Duration: Sep 29, 2018 Frequency: At least 5 of 7 days/Wk (IRF) Estimated Hrs Per Day: 1.5 hours per day Patient and/or Family Agrees t: Yes Safety Risks/Education Patient Education: Gait Training Time/GCodes Time In: 755 Time Out: 855 Total Billed Treatment Time: 60 Total Billed Treatment 1 visit GT x2 - 30 mins FA x 2 - 30 mins MAT PAYTON PT Sep 11, 2018 09:10
--- NOTE | 2018-09-11 09:37 | Speech Therapy Daily Note ---
Speech Daily Progress Note Subjective Date Seen by Provider: Sep 11, 2018 Time Seen by Provider: 09:00 Pt in chair. Pleasant and cooperative. Pain Numeric Pain Scale: 0-No Pain Assessment Assessment Current Status: Fair Progress Treatment Plan Continue Plan of Care Communication Comprehension: 6 Expression: 7 Social Cognition Social Interaction: 7 Problem Solvin Memory: 4 Speech Short Term Goals Short Term Goals Short Term Goals Pt will complete various auditory/visual memory activities with at least 90% accuracy. Pt will follow directions for various problem solving tasks with at least 90% accuracy. Time Frame-ST week Speech Care Home Goals Career Placement Services Counselor Goals Pt will demonstrate functional cognition for safety and maximum independence in the home. Time Frame: 2 weeks Speech-Plan Patient/Family Goals Patient/Family Goals: to [place] and [place] Treatment Plan Speech Therapy Treatment Plan: Continue Plan of Care pt cooperative. Treatment Duration: Sep 18, 2018 Frequency: 5 times per week Estimated Hrs Per Day: .5 hour per day Rehab Potential: Fair Pt/Family Agrees to Plan: Yes Safety Risks/Education Teaching Recipient: Patient Teaching Methods: Discussion Response to Teaching: Verbalize Understanding Time Speech Therapy Time In: 09:00 Speech Therapy Time Out: 09:30 Total Billed Time: 30 Billed Treatment Time 1, SLTS RAYO Xiong Sep 11, 2018 09:37
[2018-09-11] MEDS: LIDOCAINE (LIDODERM) 5% PATCH TOP SCH (10:47)
[2018-09-11] MEDS: PRAMIPEXOLE 0.5 MG TAB (MIRAPEX) PO SCH ×3 (11:13→20:30)
--- NOTE | 2018-09-11 11:53 | Occupational Ther Daily Note ---
OT Current Status-Daily Note Subjective Pt sitting in chair, agrees to therapy. Mental Status/Objective Functional [place] Measure 0=Not Assessed/NA 4=Minimal Assistance 1=Total Assistance 5=Supervision or Setup 2=Maximal Assistance 6=Modified [place] 3=Moderate Assistance 7=Complete [place] ADL-Treatment At beginning of treatment pt states he does not want to shower, but at end of session pt requests bathing. Pt completed sponge bath while seated EOB. Upper body bathing with SBA. Pt required CGA for balance during lower body bathing. Dons shirt with set up. Pt donned underwear and pants with CGA for balance during standing for pant hike. Functional [place] Measure 0=Not Assessed/NA 4=Minimal Assistance 1=Total Assistance 5=Supervision or Setup 2=Maximal Assistance 6=Modified [place] 3=Moderate Assistance 7=Complete IndependenceIRFPAI Quality Coding Scale 6 Independent with activity with or without an assistive device 5 Patient requires set up or clean up by helper. Patient completes activity by themselves 4 Supervision or touching assist (CGA). [place] provide cues , steadying assist 3 The helper provides less than half the effort to complete the activity 2 The helper provides more than half the effort to complete the activity 1 Dependent. The helper does all the effort to complete an activity 7 Patient refused to complete or attempt activity 9 The patient did not perform the activity before the current illness or injury 88 Not attempted due to Medical conditions or safety concerns Bathing (FIM): 4 Upper Body (FIM): 5 Lower Body Dressing (FIM): 4 Other Treatment Pt performed gait to therapy gym with FWW, slow pace and cues for safety. Pt leans slightly to left, cues to correct. Pt required rest break upon arriving to gym secondary to fatigue. Pt reports nausea, states he is having trouble with acid reflux. After rest pt states he feels better. Pt completed bilateral UE exercises to increase strength needed for ADLs and transfers. Pt performed shoulder flexion, abduction, biceps curls, triceps extension, and wrist flex/ ext x15 reps with 3# weight. Rest breaks between exercises. Skilled cues for proper exercise technique. Graded clothespin activity with bilateral hands to increase plant scientist/pinch strength.Arm bike [id number] to increase overall strength and activity tolerance needed for functional tasks. Pt completed activity with minimal resistance and slow pace. Pt completed nuts and bolts activity with bilateral UE with 1# weights in place to increase strength and manipulation skills. Pt completed task with occasional rest breaks secondary to fatigue. Pt returned to room with FWW. Pt fatigues with mobility, requires standing rest break. Pt completed sit to supine with SBA. Resting in bed with needs met after session. OT Short Term Goals Short Term Goals Time Frame: Sep 15, 2018 Grooming(FIM): 5 Lower Body Dressing(FIM): 5 Toilet/Commode Transfer(FIM): 5 1=Demonstrate adherence to instructed precautions during ADL tasks. 2=Patient will verbalize/demonstrate understanding of assistive devices/ modifications for ADL. 3=Patient will improve strength/tolerance for activity to enable patient to perform ADL's. OT Oil Well Services Dispatcher Goals Alf Goals Time Frame: Sep 29, 2018 Eating (FIM): 7 Eating (QC): 6 Groomin Oral Hygiene (QC): 6 Bathing(FIM): 5 Shower/Bathe Self (QC): 5 Upper Body Dressing(FIM): 6 Upper Body Dressing (QC): 6 Lower Body Dressing(FIM): 6 Lower Body Dressing (QC): 6 On/Off Footwear (QC): 6 Toileting(FIM): 6 Toileting Hygiene (QC): 6 Toilet/Commode Transfer(FIM): 6 Toilet/Commode Transfer (QC): 6 Shower Transfer(FIM): 5 Additional Goals: 1-Demonstrate ADL Tasks, 2-Verbalize Understanding, 3- ImproveStrength/Teodora 1=Demonstrate adherence to instructed precautions during ADL tasks. 2=Patient will verbalize/demonstrate understanding of assistive devices/ modifications for ADL. 3=Patient will improve strength/tolerance for activity to enable patient to perform ADL's. OT Education/Plan Discharge Recommendations Plan/Recommendations: Continue POC Treatment Plan/Plan of Care Patient would benefit from OT for education, treatment and training to promote independence in ADL's, mobility, safety and/or upper extremity function for ADL' s. Plan of Care: ADL Retraining, Functional Mobility, Group Exercise/Act as Ind, UE Funct Exercise/Act Treatment Duration: Sep 29, 2018 Frequency: At least 5 of 7 days/Wk (IRF) Estimated Hrs Per Day: 1.5 hours per day Agreement: Yes Rehab Potential: Fair Time/GCodes Start Time: 09:30 Stop Time: 11:00 Total Time Billed (hr/min): 90 Billed Treatment Time 1 visit, ADL(20minutes), FA(10minutes), EXx4(60minutes) TOPHER MENG OT Sep 11, 2018 11:53
[2018-09-11] MEDS: ONDANSETRON 8 MG (ZOFRAN) ORAL DISSOLVE TAB PO PRN (12:36)
[2018-09-11 13:09] LABS: BILIRUBIN,URINE NEGATIVE (NEGATIVE); CLARITY,URINE CLEAR; COLOR,URINE YELLOW; GLUCOSE, URINE (UA) NEGATIVE (NEGATIVE); KETONES,URINE 1+ (NEGATIVE); LEUKOCYTE ESTERASE ,URINE 1+ (NEGATIVE); NITRITE,URINE NEGATIVE (NEGATIVE); PH,URINE 5 (5-9); PROTEIN,URINE NEGATIVE (NEGATIVE); UROBILINOGEN,URINE 1 MG/DL (NORMAL)
[2018-09-11 13:15] LABS: BACTERIA,URINE TRACE /HPF; RBC,URINE RARE /HPF; WBC,URINE 0-2 /HPF
--- NOTE | 2018-09-11 13:37 | Physical Therapy Daily Note ---
PT Daily Note-Current Subjective Pt was in bed visiting with family when PT arrived. Pt agreed to therapy for the afternoon. Pain Numeric Pain Scale: 0-No Pain Location: No Pain Reported Mental Status Patient Orientation: Normal For Age Transfers Functional [place] Measure 0=Not Assessed/NA 4=Minimal Assistance 1=Total Assistance 5=Supervision or Setup 2=Maximal Assistance 6=Modified [place] 3=Moderate Assistance 7=Complete IndependenceIRFPAI Quality Coding Scale 6 Independent with activity with or without an assistive device 5 Patient requires set up or clean up by helper. Patient completes activity by themselves 4 Supervision or touching assist (CGA). [place] provide cues , steadying assist 3 The helper provides less than half the effort to complete the activity 2 The helper provides more than half the effort to complete the activity 1 Dependent. The helper does all the effort to complete an activity 7 Patient refused to complete or attempt activity 9 The patient did not perform the activity before the current illness or injury 88 Not attempted due to Medical conditions or safety concerns Transfers (B, C, W/C) (FIM): 4 Scootin Rollin Supine to/from Sit: 5 Sit to/from Stand: 4 Weight Bearing Right Lower Extremity: Right Full Weight Bearing Left Lower Extremity: Left Full Weight Bearing Gait Training Does the Patient Walk?: Yes Gait (FIM): 4 Distance (FIM): 3=150 ft Distance: 150ft Gait Level of Assist: 4 Gait Persons Needed: 1 Gait Assistive Device: FWW Exercises NuStep Minutes: 15 NuStep Workload: 5 Assessment Blaze practiced ambulation with a four point cane for 50ft in the therapy. Pt was cued throughout therapy to keep vertical and to correct alignment. Patient finished therapy on NuStep for 15 mins without showing fatigue. PT Short Term Goals Short Term Goals Time Frame: Sep 15, 2018 Gait (FIM): 5 Gait Distance Comment: 200' Gait Level of Assist: 5 Gait Assistive Device: FWW PT Breast Puller Goals Breast Puller Goals PT Breast Puller Goals Time Frame: Sep 29, 2018 Transfers (B,C,W/C) (FIM): 6 Sit to Lying (QC): 6 Lying-Sitting on Side/Bed(QC): 6 Sit to Stand (QC): 6 Rollin Roll Left to Right (QC): 6 Chair/Opp-wt-Mbanz Xfer(QC): 6 Car Transfer (QC): 6 Gait (FIM): 6 Distance: 300' Walk 10 feet (QC): 6 Walk 10ft-Uneven Surface(QC): 6 Walk 50ft with 2 Turns (QC): 6 Walk 150 ft (QC): 6 Gait Level of Assist: 6 Gait Assistive Device: FWW Stairs (FIM): 5 # of Steps: 12 1 Step (curb) (QC): 4 4 Steps (QC): 4 12 Steps (QC): 4 Stairs Level Of Assist: 5 PT Plan Treatment/Plan Treatment Plan: Continue Plan of Care Treatment Plan: Bed Mobility, Education, Functional Activity Teodora, Functional Strength, Group Therapy, Gait, Safety, Therapeutic Exercise, Transfers Treatment Duration: Sep 29, 2018 Frequency: At least 5 of 7 days/Wk (IRF) Estimated Hrs Per Day: 1.5 hours per day Patient and/or Family Agrees t: Yes Time/GCodes Time In: 1255 Time Out: 1325 Total Billed Treatment Time: 30 Total Billed Treatment 1 visit GT x 15 mins FA x 15 mins MAT PAYTON PT Sep 11, 2018 13:37
--- NOTE | 2018-09-11 15:13 | Speech Therapy Daily Note ---
Speech Daily Progress Note Subjective Date Seen by Provider: Sep 11, 2018 Time Seen by Provider: 09:00 Pt in chair. Pleasant and cooperative. Pain Numeric Pain Scale: 0-No Pain Objective Memory - Picture recall after 20 minutes was 80% accurate, Pt verbalized out loud what he saw in picture to facilitate recall. Problem Solving/Following Directions - Convergent Naming Inferences. Pt provided with 3 clues and he was to determine which object TRADE MANAGER was describing. Pt was 90% accurate. Assessment Assessment Current Status: Fair Progress Treatment Plan Continue Plan of Care Communication Comprehension: 6 Expression: 7 Social Cognition Social Interaction: 7 Problem Solvin Memory: 4 Speech Short Term Goals Short Term Goals Short Term Goals Pt will complete various auditory/visual memory activities with at least 90% accuracy. Pt will follow directions for various problem solving tasks with at least 90% accuracy. Time Frame-ST week Speech Rate Quoting Operator Goals Mcfp Goals Pt will demonstrate functional cognition for safety and maximum independence in the home. Time Frame: 2 weeks Speech-Plan Patient/Family Goals Patient/Family Goals: to return home Treatment Plan Speech Therapy Treatment Plan: Continue Plan of Care pt pleasant and cooperative. Treatment Duration: Sep 18, 2018 Frequency: 5 times per week Estimated Hrs Per Day: .5 hour per day Rehab Potential: Fair Pt/Family Agrees to Plan: Yes Safety Risks/Education Teaching Recipient: Patient Teaching Methods: Discussion Response to Teaching: Verbalize Understanding Time Speech Therapy Time In: 09:00 Speech Therapy Time Out: 09:30 Total Billed Time: 30 Billed Treatment Time 1ELISE RANDY ST Sep 11, 2018 15:13
[2018-09-11 17:17] VITALS: BP 140/78
[2018-09-11] MEDS: ATORVASTATIN 40 MG (LIPITOR) TABLET PO SCH (20:30)
[2018-09-11] MEDS: LIDOCAINE PATCH REMOVAL TP SCH (20:33)
[2018-09-12 05:18] VITALS: BP 148/82
[2018-09-12] MEDS: PANTOPRAZOLE 40 MG (PROTONIX) TAB PO SCH (06:47)
--- NOTE | 2018-09-12 07:44 | Progress Note (SOAP) ---
Subjective Time Seen by a Provider: 07:42 Subjective/Events-last exam Patient feeling better today. Patient feels 85 percent better with physical therapy and occupational therapy. Patient not nauseous today. CVA Objective Exam Vital Signs Date Time Temp Pulse Resp B/P (MAP) Pulse Ox O2 Delivery O2 Flow Rate FiO2 09/12/18 05:18 97.8 54 20 148/82 (104) 95 Room Air 09/11/18 17:17 97.9 60 18 140/78 (98) 93 Room Air I & O 09/12/18 07:00 Intake Total 980 ml Balance 980 ml Capillary Refill : General Appearance: No Apparent Distress, WD/WN HEENT: Normal ENT Inspection Neck: Full Range of Motion Respiratory: No Accessory Muscle Use, No Respiratory Distress Cardiovascular: Regular Rate, Rhythm, No Murmur Results Lab Laboratory Tests 09/11/18 13:00: Urine Color YELLOW, Urine Clarity CLEAR, Urine pH 5, Urine Specific [place] 1.025H, Urine Protein NEGATIVE, Urine Glucose (UA) NEGATIVE, Urine Ketones 1+H, Urine Nitrite NEGATIVE, Urine Bilirubin NEGATIVE, Urine Urobilinogen 1, Urine Leukocyte Esterase 1+H, Urine RBC (Auto) NEGATIVE, Urine RBC RARE, Urine WBC 0-2 , Urine Squamous Epithelial Cells NONE, Urine Crystals NONE, Urine Bacteria TRACE, Urine Casts NONE, Urine Mucus NEGATIVE, Urine Culture Indicated NO Assessment/Plan Assessment/Plan Assess & Plan/Chief Complaint CVA. Parkinson disease. Unstable gait.. . 09/11/18. CVA. Parkinson disease. Unstable gait. UTI. Leukocytosis. Hyponatremia better. To check UTI and sodium on Tuesday. . 09/12/18. CVA. Parkinson disease. Unstable gait. UTI resolved. Leukocytosis resolved. Hyponatremia resolved Clinical Quality Measures DVT/VTE Risk/Contraindication: Risk Factor Score Per Nursin RFS Level Per Nursing on Admit: 4+=Very High CHELSEA MATHIS DO Sep 12, 2018 07:44
[2018-09-12] MEDS: ASPIRIN E.C. 81 MG (ECOTRIN) TAB PO SCH (08:54)
[2018-09-12] MEDS: PRAMIPEXOLE 0.5 MG TAB (MIRAPEX) PO SCH ×3 (08:54→20:12)
[2018-09-12] MEDS: CLOPIDOGREL 75 MG (PLAVIX) TABLET PO SCH (08:54)
[2018-09-12] MEDS: LIDOCAINE (LIDODERM) 5% PATCH TOP SCH (08:55)
[2018-09-12] MEDS: SODIUM CHLORIDE 1 GM TAB (NON-FORMULARY) PO SCH ×4 (08:55→20:12)
--- NOTE | 2018-09-12 08:58 | Physical Therapy Daily Note ---
PT Daily Note-Current Subjective Patient in bed pre tx, agrees to PT, no complaints of pain. Appearance Patient sitting EOB post tx with nurse call, phone, tray, all needs met. Mental Status Patient Orientation: Normal For Age Transfers Functional [place] Measure 0=Not Assessed/NA 4=Minimal Assistance 1=Total Assistance 5=Supervision or Setup 2=Maximal Assistance 6=Modified [place] 3=Moderate Assistance 7=Complete IndependenceIRFPAI Quality Coding Scale 6 Independent with activity with or without an assistive device 5 Patient requires set up or clean up by helper. Patient completes activity by themselves 4 Supervision or touching assist (CGA). [place] provide cues , steadying assist 3 The helper provides less than half the effort to complete the activity 2 The helper provides more than half the effort to complete the activity 1 Dependent. The helper does all the effort to complete an activity 7 Patient refused to complete or attempt activity 9 The patient did not perform the activity before the current illness or injury 88 Not attempted due to Medical conditions or safety concerns Transfers (B, C, W/C) (FIM): 5 Scootin Rollin Supine to/from Sit: 6 Sit to/from Stand: 5 Bed to/from Chair: 5 Weight Bearing Right Lower Extremity: Right Full Weight Bearing Left Lower Extremity: Left Full Weight Bearing Gait Training Gait (FIM): 5 Distance: 200'x2, 150', 40'x2 Gait Level of Assist: 5 Gait Persons Needed: 1 Gait Assistive Device: FWW Patient ambulated with SBA using a rolling walker but also ambulated 40'x2 using a small base quad cane with CGA/Omar for balance. Patient tends to drift to the left when ambulating, leans to the left more when using a quad cane. Exercises LAQ left side with 2# ankle weight for 5 min NuStep Minutes: 15 NuStep Workload: 5 Neuromuscular step-ups x10 to the front and x10 to the left side Treatments bed mobility and transfers, ambulation, functional strengthening, balance training Assessment Current Status: Fair Progress improved balance during ambulation with a rolling walker but still needs assist with a quad cane PT Short Term Goals Short Term Goals Time Frame: Sep 15, 2018 Gait (FIM): 5 Gait Distance Comment: 200' Gait Level of Assist: 5 Gait Assistive Device: FWW PT Human Resources Executive Assistant Goals Assisted Goals PT Human Resources Executive Assistant Goals Time Frame: Sep 29, 2018 Transfers (B,C,W/C) (FIM): 6 Sit to Lying (QC): 6 Lying-Sitting on Side/Bed(QC): 6 Sit to Stand (QC): 6 Rollin Roll Left to Right (QC): 6 Chair/Apt-qc-Xruhg Xfer(QC): 6 Car Transfer (QC): 6 Gait (FIM): 6 Distance: 300' Walk 10 feet (QC): 6 Walk 10ft-Uneven Surface(QC): 6 Walk 50ft with 2 Turns (QC): 6 Walk 150 ft (QC): 6 Gait Level of Assist: 6 Gait Assistive Device: FWW Stairs (FIM): 5 # of Steps: 12 1 Step (curb) (QC): 4 4 Steps (QC): 4 12 Steps (QC): 4 Stairs Level Of Assist: 5 PT Plan Problem List Problem List: Activity Tolerance, Functional Strength, Safety, Balance, Gait, Transfer Treatment/Plan Treatment Plan: Continue Plan of Care Treatment Plan: Bed Mobility, Education, Functional Activity Teodora, Functional Strength, Group Therapy, Gait, Safety, Therapeutic Exercise, Transfers Treatment Duration: Sep 29, 2018 Frequency: At least 5 of 7 days/Wk (IRF) Estimated Hrs Per Day: 1.5 hours per day Patient and/or Family Agrees t: Yes Safety Risks/Education Patient Education: Gait Training, Transfer Techniques, Correct Positioning, Safety Issues Teaching Recipient: Patient Teaching Methods: Demonstration, Discussion Response to Teaching: Reinforcement Needed Time/GCodes Time In: 0800 Time Out: 0900 Total Billed Treatment Time: 60 Total Billed Treatment 1 visit GT 30' EX 20' NM 10' WILDER LOBO PT Sep 12, 2018 08:58
--- NOTE | 2018-09-12 09:42 | Speech Therapy Daily Note ---
Speech Daily Progress Note Subjective Date Seen by Provider: Sep 12, 2018 Time Seen by Provider: 09:00 Pt pleasant and cooperative. Pain Numeric Pain Scale: 0-No Pain Objective Memory - Picture recall after 20 minutes was 90% accurate. Discussed the purpose of verbalizing out loud what he sees in the picture. Pt stated that does help him to remember better. Problem Solving - provided 2 outcomes of various situations. Pt was 95% accurate with min assist. Assessment Assessment Current Status: Fair Progress Treatment Plan Continue Plan of Care Communication Comprehension: 6 Expression: 7 Social Cognition Social Interaction: 7 Problem Solvin Memory: 4 Speech Short Term Goals Short Term Goals Short Term Goals Pt will complete various auditory/visual memory activities with at least 90% accuracy. Pt will follow directions for various problem solving tasks with at least 90% accuracy. Time Frame-ST week Speech Shelter Goals Iridologist Goals Pt will demonstrate functional cognition for safety and maximum independence in the home. Time Frame: 2 weeks Speech-Plan Patient/Family Goals Patient/Family Goals: to return home Treatment Plan Speech Therapy Treatment Plan: Continue Plan of Care pt motivated to improve. Treatment Duration: Sep 18, 2018 Frequency: 5 times per week Estimated Hrs Per Day: .5 hour per day Rehab Potential: Fair Pt/Family Agrees to Plan: Yes Safety Risks/Education Teaching Recipient: Patient Teaching Methods: Discussion Response to Teaching: Verbalize Understanding Time Speech Therapy Time In: 09:00 Speech Therapy Time Out: 09:30 Total Billed Time: 30 Billed Treatment Time 1, RAYO Hines Sep 12, 2018 09:42
--- NOTE | 2018-09-12 13:13 | Occupational Ther Daily Note ---
OT Current Status-Daily Note Subjective Pt in bed, agrees to treatment. Pt has no c/o pain, but reports fatigue. Mental Status/Objective Functional [place] Measure 0=Not Assessed/NA 4=Minimal Assistance 1=Total Assistance 5=Supervision or Setup 2=Maximal Assistance 6=Modified [place] 3=Moderate Assistance 7=Complete [place] ADL-Treatment Supine to sit with modified independence. Gait to restroom with FWW. Transfer to toilet with CGA and cues for safety. Pt able to complete toileting with SBA. Transfer to walk in shower with CGA using grab bars. Pt doffed clothing with SBA. Seated bathing completed using hand held shower. Pt able to wash/dry all areas with CGA for balance during lower body bathing. Don pullover shirt with set up. Pt donned underwear and pants with CGA for standing balance during pant hike. Don socks with set up. Pt fatigued quickly with ADLs and required rest breaks. Pt stood at sink to brush teeth and comb hair with SBA. Transfer to chair with close supervision. Functional [place] Measure 0=Not Assessed/NA 4=Minimal Assistance 1=Total Assistance 5=Supervision or Setup 2=Maximal Assistance 6=Modified [place] 3=Moderate Assistance 7=Complete IndependenceIRFPAI Quality Coding Scale 6 Independent with activity with or without an assistive device 5 Patient requires set up or clean up by helper. Patient completes activity by themselves 4 Supervision or touching assist (CGA). [place] provide cues , steadying assist 3 The helper provides less than half the effort to complete the activity 2 The helper provides more than half the effort to complete the activity 1 Dependent. The helper does all the effort to complete an activity 7 Patient refused to complete or attempt activity 9 The patient did not perform the activity before the current illness or injury 88 Not attempted due to Medical conditions or safety concerns Grooming (FIM): 5 Oral Hygiene (QC): 4 Bathing (FIM): 4 Shower/Bathe Self (QC): 4 (CGA) Upper Body (FIM): 5 Upper Body Dressing (QC): 5 Lower Body Dressing (FIM): 4 Lower Body Dressing (QC): 4 (CGA) On/Off Footwear (QC): 5 Toileting (FIM): 4 Toilet/Commode Transfer (FIM): 4 (CGA) Toilet Transfer (QC): 4 Shower Transfer(FIM): 4 (CGA) Other Treatment Pt completed bilateral UE exercises to increase strength needed for ADLs and transfers. Pt performed shoulder flexion, biceps curls, and triceps extension exercises x10 reps with minimal resistance theraband. Rest breaks between exercises. Pt sitting in chair with needs met and spouse present after session. OT Short Term Goals Short Term Goals Time Frame: Sep 15, 2018 Grooming(FIM): 5 Lower Body Dressing(FIM): 5 Toilet/Commode Transfer(FIM): 5 1=Demonstrate adherence to instructed precautions during ADL tasks. 2=Patient will verbalize/demonstrate understanding of assistive devices/ modifications for ADL. 3=Patient will improve strength/tolerance for activity to enable patient to perform ADL's. OT Questioned Documents Examiner Goals [facility] Goals Time Frame: Sep 29, 2018 Eating (FIM): 7 Eating (QC): 6 Groomin Oral Hygiene (QC): 6 Bathing(FIM): 5 Shower/Bathe Self (QC): 5 Upper Body Dressing(FIM): 6 Upper Body Dressing (QC): 6 Lower Body Dressing(FIM): 6 Lower Body Dressing (QC): 6 On/Off Footwear (QC): 6 Toileting(FIM): 6 Toileting Hygiene (QC): 6 Toilet/Commode Transfer(FIM): 6 Toilet/Commode Transfer (QC): 6 Shower Transfer(FIM): 5 Additional Goals: 1-Demonstrate ADL Tasks, 2-Verbalize Understanding, 3- ImproveStrength/Teod[place] 1=Demonstrate adherence to instructed precautions during ADL tasks. 2=Patient will verbalize/demonstrate understanding of assistive devices/ modifications for ADL. 3=Patient will improve strength/tolerance for activity to enable patient to perform ADL's. OT Education/Plan Discharge Recommendations Plan/Recommendations: Continue POC Treatment Plan/Plan of Care Patient would benefit from OT for education, treatment and training to promote independence in ADL's, mobility, safety and/or upper extremity function for ADL' s. Plan of Care: ADL Retraining, Functional Mobility, Group Exercise/Act as Ind, UE Funct Exercise/Act Treatment Duration: Sep 29, 2018 Frequency: At least 5 of 7 days/Wk (IRF) Estimated Hrs Per Day: 1.5 hours per day Agreement: Yes Rehab Potential: Fair Time/GCodes Start Time: 09:30 Stop Time: 10:30 Total Time Billed (hr/min): 60 Billed Treatment Time 1 visit, ADLx3(50minutes), EX(10minutes) TOPHER MENG OT Sep 12, 2018 13:13
--- NOTE | 2018-09-12 13:17 | Occupational Ther Daily Note ---
OT Current Status-Daily Note Subjective Pt sitting in chair, agrees to treatment. Mental Status/Objective Functional [place] Measure 0=Not Assessed/NA 4=Minimal Assistance 1=Total Assistance 5=Supervision or Setup 2=Maximal Assistance 6=Modified [place] 3=Moderate Assistance 7=Complete [place] ADL-Treatment Functional [place] Measure 0=Not Assessed/NA 4=Minimal Assistance 1=Total Assistance 5=Supervision or Setup 2=Maximal Assistance 6=Modified [place] 3=Moderate Assistance 7=Complete IndependenceIRFPAI Quality Coding Scale 6 Independent with activity with or without an assistive device 5 Patient requires set up or clean up by helper. Patient completes activity by themselves 4 Supervision or touching assist (CGA). [place] provide cues , steadying assist 3 The helper provides less than half the effort to complete the activity 2 The helper provides more than half the effort to complete the activity 1 Dependent. The helper does all the effort to complete an activity 7 Patient refused to complete or attempt activity 9 The patient did not perform the activity before the current illness or injury 88 Not attempted due to Medical conditions or safety concerns Other Treatment Sit to stand from chair with supervision. Gait to therapy gym with FWW, slow pace. Pt had one LOB to the left requiring minimal assistance to correct. Transfer to chair. Pt completed arm bike activity [id number] to increase overall strength and activity tolerance needed for functional tasks. Pt performed task with minimal resistance and slow pace. No rest breaks needed. Pt returned to room, completed sit to supine with SBA. Pt resting in bed with needs met after session. OT Short Term Goals Short Term Goals Time Frame: Sep 15, 2018 Grooming(FIM): 5 Lower Body Dressing(FIM): 5 Toilet/Commode Transfer(FIM): 5 1=Demonstrate adherence to instructed precautions during ADL tasks. 2=Patient will verbalize/demonstrate understanding of assistive devices/ modifications for ADL. 3=Patient will improve strength/tolerance for activity to enable patient to perform ADL's. OT Usp Goals Shovel Oiler Goals Time Frame: Sep 29, 2018 Eating (FIM): 7 Eating (QC): 6 Groomin Oral Hygiene (QC): 6 Bathing(FIM): 5 Shower/Bathe Self (QC): 5 Upper Body Dressing(FIM): 6 Upper Body Dressing (QC): 6 Lower Body Dressing(FIM): 6 Lower Body Dressing (QC): 6 On/Off Footwear (QC): 6 Toileting(FIM): 6 Toileting Hygiene (QC): 6 Toilet/Commode Transfer(FIM): 6 Toilet/Commode Transfer (QC): 6 Shower Transfer(FIM): 5 Additional Goals: 1-Demonstrate ADL Tasks, 2-Verbalize Understanding, 3- ImproveStrength/[place] 1=Demonstrate adherence to instructed precautions during ADL tasks. 2=Patient will verbalize/demonstrate understanding of assistive devices/ modifications for ADL. 3=Patient will improve strength/tolerance for activity to enable patient to perform ADL's. OT Education/Plan Discharge Recommendations Plan/Recommendations: Continue POC Treatment Plan/Plan of Care Patient would benefit from OT for education, treatment and training to promote independence in ADL's, mobility, safety and/or upper extremity function for ADL' s. Plan of Care: ADL Retraining, Functional Mobility, Group Exercise/Act as Ind, UE Funct Exercise/Act Treatment Duration: Sep 29, 2018 Frequency: At least 5 of 7 days/Wk (IRF) Estimated Hrs Per Day: 1.5 hours per day Agreement: Yes Rehab Potential: Fair Time/GCodes Start Time: 11:20 Stop Time: 11:40 Total Time Billed (hr/min): 20 Billed Treatment Time 1 visit, EX(20minutes) TOPHER MENG OT Sep 12, 2018 13:17
--- NOTE | 2018-09-12 13:30 | Physical Therapy Daily Note ---
PT Daily Note-Current Subjective Patient in bed pre tx, agrees to PT, patient very tired, no complaints of pain. Appearance Patient in bed post tx with nurse call, phone, tray, all needs met. Mental Status Patient Orientation: Normal For Age Transfers Functional [place] Measure 0=Not Assessed/NA 4=Minimal Assistance 1=Total Assistance 5=Supervision or Setup 2=Maximal Assistance 6=Modified [place] 3=Moderate Assistance 7=Complete IndependenceIRFPAI Quality Coding Scale 6 Independent with activity with or without an assistive device 5 Patient requires set up or clean up by helper. Patient completes activity by themselves 4 Supervision or touching assist (CGA). [place] provide cues , steadying assist 3 The helper provides less than half the effort to complete the activity 2 The helper provides more than half the effort to complete the activity 1 Dependent. The helper does all the effort to complete an activity 7 Patient refused to complete or attempt activity 9 The patient did not perform the activity before the current illness or injury 88 Not attempted due to Medical conditions or safety concerns Transfers (B, C, W/C) (FIM): 5 Scootin Rollin Supine to/from Sit: 6 Sit to/from Stand: 6 Bed to/from Chair: 5 Weight Bearing Right Lower Extremity: Right Full Weight Bearing Left Lower Extremity: Left Full Weight Bearing Gait Training Gait (FIM): 5 Distance: 200', 150' Gait Level of Assist: 5 Gait Persons Needed: 1 Gait Assistive Device: FWW Slow but steady ambulation, careful with turning. Exercises Standing: Hip Abduction, Heel/toe raises, Marching, Mini squats Standing Reps: 20 Treatments bed mobility and transfers, ambulation, functional strengthening Assessment Current Status: Fair Progress Patient very fatigued this afternoon, needed several rest breaks. PT Short Term Goals Short Term Goals Time Frame: Sep 15, 2018 Gait (FIM): 5 Gait Distance Comment: 200' Gait Level of Assist: 5 Gait Assistive Device: FWW PT Electronic Scale Subassembler Goals Nursing Home Goals PT Electronic Scale Subassembler Goals Time Frame: Sep 29, 2018 Transfers (B,C,W/C) (FIM): 6 Sit to Lying (QC): 6 Lying-Sitting on Side/Bed(QC): 6 Sit to Stand (QC): 6 Rollin Roll Left to Right (QC): 6 Chair/Ggi-ug-Wfkua Xfer(QC): 6 Car Transfer (QC): 6 Gait (FIM): 6 Distance: 300' Walk 10 feet (QC): 6 Walk 10ft-Uneven Surface(QC): 6 Walk 50ft with 2 Turns (QC): 6 Walk 150 ft (QC): 6 Gait Level of Assist: 6 Gait Assistive Device: FWW Stairs (FIM): 5 # of Steps: 12 1 Step (curb) (QC): 4 4 Steps (QC): 4 12 Steps (QC): 4 Stairs Level Of Assist: 5 PT Plan Problem List Problem List: Activity Tolerance, Functional Strength, Safety, Balance, Gait, Transfer, Bed Mobility Treatment/Plan Treatment Plan: Continue Plan of Care Treatment Plan: Bed Mobility, Education, Functional Activity Teod[place], Functional Strength, Group Therapy, Gait, Safety, Therapeutic Exercise, Transfers Treatment Duration: Sep 29, 2018 Frequency: At least 5 of 7 days/Wk (IRF) Estimated Hrs Per Day: 1.5 hours per day Patient and/or Family Agrees t: Yes Safety Risks/Education Patient Education: Gait Training, Transfer Techniques, Correct Positioning, Safety Issues Teaching Recipient: Patient Teaching Methods: Demonstration, Discussion Response to Teaching: Reinforcement Needed Time/GCodes Time In: 1300 Time Out: 1330 Total Billed Treatment Time: 30 Total Billed Treatment 1 visit EX 15' GT 15' WILDER LOBO PT Sep 12, 2018 13:30
[2018-09-12] MEDS: RASAGILINE MESYLATE 1 MG PO SCH (13:39)
[2018-09-12] MEDS: ONDANSETRON 8 MG (ZOFRAN) ORAL DISSOLVE TAB PO PRN (17:57)
[2018-09-12 18:50] VITALS: BP 143/80
[2018-09-12] MEDS: ATORVASTATIN 40 MG (LIPITOR) TABLET PO SCH (20:12)
[2018-09-12] MEDS: LIDOCAINE PATCH REMOVAL TP SCH (20:14)
--- NOTE | 2018-09-12 20:52 | PM & R (SOAP) Progress Note ---
Subjective This was a face to face visit with the patient. Date Seen by Provider: Sep 12, 2018 Time Seen by Provider: 20:35 Subjective/Events-last exam Patient was seen in his room this evening Patient had nausea earlier today now relieved s/p Zofran Patient relates to cheese he ate.Patient SBA for transfers Date Identified: Sep 12, 2018 Time Identified: 20:00 Medication Intervention: Zofran for nausea Objective Physician Exam Last Set of Vital Signs Vital Signs Date Time Temp Pulse Resp B/P (MAP) Pulse Ox O2 Delivery O2 Flow Rate FiO2 09/12/18 18:50 98.1 63 18 143/80 (101) 96 Room Air Capillary Refill : I&O Intake and Output 09/12/18 00:00 Intake Total 1280 ml Balance 1280 ml Intake Oral 1280 ml # Voids 7 # Bowel Movements 1 General: Alert, Oriented X3, Cooperative, No Acute Distress HEENT: Atraumatic, PERRLA, EOMI, Mucous Memb Moist/[place] Neck: Supple, No JVD Lungs: Clear to Auscultation Heart: Regular Rate Abdomen: Normal Bowel Sounds, Soft, No Tenderness Extremities: No Edema Skin: No Significant Lesion Neuro: Strength at 5/5 X4 Ext, Other (dysmetria on left with gait imbalance and Strength 5/5 in all limbs except LUE 4+/5) Psych/Mental Status: Mental Status NL Results Lab Data Laboratory Tests 09/11/18 13:00: Urine Color YELLOW, Urine Clarity CLEAR, Urine pH 5, Urine Specific [place] 1.025H, Urine Protein NEGATIVE, Urine Glucose (UA) NEGATIVE, Urine Ketones 1+H, Urine Nitrite NEGATIVE, Urine Bilirubin NEGATIVE, Urine Urobilinogen 1, Urine Leukocyte Esterase 1+H, Urine RBC (Auto) NEGATIVE, Urine RBC RARE, Urine WBC 0-2 , Urine Squamous Epithelial Cells NONE, Urine Crystals NONE, Urine Bacteria TRACE, Urine Casts NONE, Urine Mucus NEGATIVE, Urine Culture Indicated NO Assessment/Plan Assessment and Plan 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
[2018-09-13 04:57] LABS: BUN/CREATININE RATIO 24; CALCIUM 9.4 MG/DL (8.5-10.1); CARBON DIOXIDE 19 MMOL/L (21-32); CHLORIDE 109 MMOL/L (98-107); CREATININE SERUM 0.75 MG/DL (0.60-1.30); GFR ESTIMATED > 60; GLUCOSE 99 MG/DL (70-105); POTASSIUM 3.7 MMOL/L (3.6-5.0); SODIUM 140 MMOL/L (135-145)
[2018-09-13 05:03] VITALS: BP 150/82
[2018-09-13] MEDS: PANTOPRAZOLE 40 MG (PROTONIX) TAB PO SCH (06:47)
--- NOTE | 2018-09-13 07:49 | Progress Note (SOAP) ---
Subjective Time Seen by a Provider: 07:44 Subjective/Events-last exam Patient feeling better today. Sodium 140. Decrease the amount of sodium chloride. Objective Exam Vital Signs Date Time Temp Pulse Resp B/P (MAP) Pulse Ox O2 Delivery O2 Flow Rate FiO2 09/13/18 05:03 97.9 52 18 150/82 (104) 96 Room Air 09/12/18 18:50 98.1 63 18 143/80 (101) 96 Room Air I & O 09/13/18 07:00 Intake Total 1280 ml Balance 1280 ml Capillary Refill : General Appearance: No Apparent Distress, WD/WN HEENT: Normal ENT Inspection Respiratory: Chest Non Tender, Lungs Clear, Normal Breath Sounds Cardiovascular: Regular Rate, Rhythm, No Murmur Gastrointestinal: non tender, soft Results Lab Laboratory Tests 09/13/18 04:32 Laboratory Tests 09/13/18 04:32: Sodium Level 140, Potassium Level 3.7, Chloride Level 109H, Carbon Dioxide Level 19L, Anion Gap 12, Blood Urea Nitrogen 18, Creatinine 0.75, Estimat Glomerular Filtration Rate > 60, BUN/Creatinine Ratio 24, Glucose Level 99, Calcium Level 9.4 Assessment/Plan Assessment/Plan Assess & Plan/Chief Complaint CVA. Parkinson disease. Unstable gait.. . 09/11/18. CVA. Parkinson disease. Unstable gait. UTI. Leukocytosis. Hyponatremia better. To check UTI and sodium on Tuesday. . 09/12/18. CVA. Parkinson disease. Unstable gait. UTI resolved. Leukocytosis resolved. Hyponatremia resolved . 09/13/18 CVA. Parkinson disease. Hyponatremia resolved. Unstable gait. UTI resolved. Leukocytosis resolved. Patient feeling better Clinical Quality Measures DVT/VTE Risk/Contraindication: Risk Factor Score Per Nursin RFS Level Per Nursing on Admit: 4+=Very High CHELSEA MATHIS DO Sep 13, 2018 07:49
[2018-09-13] MEDS: PRAMIPEXOLE 0.5 MG TAB (MIRAPEX) PO SCH ×3 (09:10→20:22)
--- NOTE | 2018-09-13 09:10 | Physical Therapy Daily Note ---
PT Daily Note-Current Subjective Pt was awake in bed when PT arrived this morning. Pt reported they did not feel well last night but agreed to continue with therapy. Pain Numeric Pain Scale: 0-No Pain Location: No Pain Reported Appearance Patient in bed post tx with nurse call, phone, tray, all needs met. Mental Status Patient Orientation: Normal For Age Transfers Functional [place] Measure 0=Not Assessed/NA 4=Minimal Assistance 1=Total Assistance 5=Supervision or Setup 2=Maximal Assistance 6=Modified [place] 3=Moderate Assistance 7=Complete IndependenceIRFPAI Quality Coding Scale 6 Independent with activity with or without an assistive device 5 Patient requires set up or clean up by helper. Patient completes activity by themselves 4 Supervision or touching assist (CGA). [place] provide cues , steadying assist 3 The helper provides less than half the effort to complete the activity 2 The helper provides more than half the effort to complete the activity 1 Dependent. The helper does all the effort to complete an activity 7 Patient refused to complete or attempt activity 9 The patient did not perform the activity before the current illness or injury 88 Not attempted due to Medical conditions or safety concerns Transfers (B, C, W/C) (FIM): 5 Scootin Rollin Supine to/from Sit: 5 Sit to/from Stand: 5 Weight Bearing Right Lower Extremity: Right Full Weight Bearing Left Lower Extremity: Left Full Weight Bearing Gait Training Does the Patient Walk?: Yes Gait (FIM): 5 Distance (FIM): 3=150 ft Distance: 300' Gait Level of Assist: 5 Gait Persons Needed: 1 Gait Assistive Device: FWW Exercises NuStep Minutes: 12 NuStep Workload: 5 Assessment Current Status: Fair Progress Hayes was able to ambulate for 300' ft with a FWW without showing signs of fatigue. He has been using a 4-point cane in therapy gym on firm and uneven surfaces with minimal cueing throughout to adjust his gait mechanics. Pt walked an additional 100'ft with 4pt cane training. Pt then worked through floor transfers, starting in supine, with stand by assist and cueing from Therapist. Pt has shown in improvement in reactive balance while reaching across body to grab objects from the Therapist. Patient will show signs of fatigue towards the end of therapy and will need to be cued for symmetrical posture. PT Short Term Goals Short Term Goals Time Frame: Sep 15, 2018 Gait (FIM): 5 Gait Distance Comment: 200' Gait Level of Assist: 5 Gait Assistive Device: FWW PT Touch Up Worker Goals Detention Goals PT Detention Goals Time Frame: Sep 29, 2018 Transfers (B,C,W/C) (FIM): 6 Sit to Lying (QC): 6 Lying-Sitting on Side/Bed(QC): 6 Sit to Stand (QC): 6 Rollin Roll Left to Right (QC): 6 Chair/Zhy-pv-Nsanm Xfer(QC): 6 Car Transfer (QC): 6 Gait (FIM): 6 Distance: 300' Walk 10 feet (QC): 6 Walk 10ft-Uneven Surface(QC): 6 Walk 50ft with 2 Turns (QC): 6 Walk 150 ft (QC): 6 Gait Level of Assist: 6 Gait Assistive Device: FWW Stairs (FIM): 5 # of Steps: 12 1 Step (curb) (QC): 4 4 Steps (QC): 4 12 Steps (QC): 4 Stairs Level Of Assist: 5 PT Plan Problem List Problem List: Activity Tolerance, Functional Strength, Safety, Balance, Gait, Transfer Treatment/Plan Treatment Plan: Continue Plan of Care Treatment Plan: Bed Mobility, Education, Functional Activity Teodora, Functional Strength, Group Therapy, Gait, Safety, Therapeutic Exercise, Transfers Treatment Duration: Sep 29, 2018 Frequency: At least 5 of 7 days/Wk (IRF) Estimated Hrs Per Day: 1.5 hours per day Patient and/or Family Agrees t: Yes Safety Risks/Education Patient Education: Gait Training, Transfer Techniques, Correct Positioning, Safety Issues Teaching Recipient: Patient Teaching Methods: Demonstration, Discussion Response to Teaching: Reinforcement Needed Time/GCodes Time In: 800 Time Out: 900 Total Billed Treatment Time: 60 Total Billed Treatment 1 visit GT - 30mins FA- 15mins EX-15mins WILDER LOBO PT Sep 13, 2018 09:10
[2018-09-13] MEDS: ASPIRIN E.C. 81 MG (ECOTRIN) TAB PO SCH (09:11)
[2018-09-13] MEDS: RASAGILINE MESYLATE 1 MG PO SCH (09:11)
[2018-09-13] MEDS: CLOPIDOGREL 75 MG (PLAVIX) TABLET PO SCH (09:12)
[2018-09-13] MEDS: LIDOCAINE (LIDODERM) 5% PATCH TOP SCH (09:13)
--- NOTE | 2018-09-13 09:44 | Speech Therapy Daily Note ---
Speech Daily Progress Note Subjective Date Seen by Provider: Sep 13, 2018 Time Seen by Provider: 09:00 Pt in bed. Pleasant and cooperative. Pain Numeric Pain Scale: 0-No Pain Objective Memory - Picture recall after 20 minutes was 95% accurate. Pt continues to use the strategy of verbalizing out loud what is in the picture to facilitate recall. Memory and Mental Manipulation - pt provided 4 words and he was to rearrange the words to form a sentence. The pt was 90% accurate and required repetitions x4. Assessment Assessment Current Status: Fair Progress Treatment Plan Continue Plan of Care Communication Comprehension: 6 Expression: 7 Social Cognition Social Interaction: 7 Problem Solvin Memory: 4 Speech Short Term Goals Short Term Goals Short Term Goals Pt will complete various auditory/visual memory activities with at least 90% accuracy. Pt will follow directions for various problem solving tasks with at least 90% accuracy. Time Frame-ST week Speech [employer] Pumping [employer] Helper Goals Shelter Goals Pt will demonstrate functional cognition for safety and maximum independence in the home. Time Frame: 2 weeks Speech-Plan Patient/Family Goals Patient/Family Goals: to return home Treatment Plan Speech Therapy Treatment Plan: Continue Plan of Care pt very cooperative. Treatment Duration: Sep 18, 2018 Frequency: 5 times per week Estimated Hrs Per Day: .5 hour per day Rehab Potential: Fair Pt/Family Agrees to Plan: Yes Safety Risks/Education Teaching Recipient: Patient Teaching Methods: Discussion Response to Teaching: Verbalize Understanding Time Speech Therapy Time In: 09:00 Speech Therapy Time Out: 09:30 Total Billed Time: 30 Billed Treatment Time 1, ELISE LOZAOHTanvi HINKLE Sep 13, 2018 09:44
[2018-09-13] MEDS: SODIUM CHLORIDE 1 GM TAB (NON-FORMULARY) PO SCH ×4 (10:11→20:23)
--- NOTE | 2018-09-13 11:38 | Occupational Ther Daily Note ---
OT Current Status-Daily Note Subjective Pt in bed, agrees to treatment. States he is feeling better today. Mental Status/Objective Functional [place] Measure 0=Not Assessed/NA 4=Minimal Assistance 1=Total Assistance 5=Supervision or Setup 2=Maximal Assistance 6=Modified [place] 3=Moderate Assistance 7=Complete [place] ADL-Treatment Pt declined bathing or changing clothes today. Supine to sit with modified independence. Gait to restroom with FWW. Pt completed grooming tasks while standing at sink. Pt able to wash face, brush teeth, and shave with SBA. Pt demonstrated ability to perform toilet transfer with supervision. Functional [place] Measure 0=Not Assessed/NA 4=Minimal Assistance 1=Total Assistance 5=Supervision or Setup 2=Maximal Assistance 6=Modified [place] 3=Moderate Assistance 7=Complete IndependenceIRFPAI Quality Coding Scale 6 Independent with activity with or without an assistive device 5 Patient requires set up or clean up by helper. Patient completes activity by themselves 4 Supervision or touching assist (CGA). [place] provide cues , steadying assist 3 The helper provides less than half the effort to complete the activity 2 The helper provides more than half the effort to complete the activity 1 Dependent. The helper does all the effort to complete an activity 7 Patient refused to complete or attempt activity 9 The patient did not perform the activity before the current illness or injury 88 Not attempted due to Medical conditions or safety concerns Grooming (FIM): 5 Toilet/Commode Transfer (FIM): 5 Other Treatment Gait to therapy gym with FWW. Pt has slow pace, but no LOB. Pt performed bilateral UE exercises to increase strength needed for ADLs and transfers. Pt performed shoulder flexion, abduction, biceps curls, triceps extension, and wrist flex/ext exercises x15 reps with 3# weight. Rest breaks between exercises. Arm bike x12 minutes to increase overall strength and activity tolerance. Pt completed activity with minimal resistance and steady pace. No rest breaks needed. Pt completed [place] bag toss using alternating UE while standing to increase standing balance. Graded clothespin task with bilateral hands to increase senior office assistant/pinch strength. Pt returned to room, transferred to bed with SBA. Pt resting in bed with needs met after session. OT Short Term Goals Short Term Goals Time Frame: Sep 15, 2018 Grooming(FIM): 5 Lower Body Dressing(FIM): 5 Toilet/Commode Transfer(FIM): 5 1=Demonstrate adherence to instructed precautions during ADL tasks. 2=Patient will verbalize/demonstrate understanding of assistive devices/ modifications for ADL. 3=Patient will improve strength/tolerance for activity to enable patient to perform ADL's. OT Physical Science Technician Goals Physical Science Technician Goals Time Frame: Sep 29, 2018 Eating (FIM): 7 Eating (QC): 6 Groomin Oral Hygiene (QC): 6 Bathing(FIM): 5 Shower/Bathe Self (QC): 5 Upper Body Dressing(FIM): 6 Upper Body Dressing (QC): 6 Lower Body Dressing(FIM): 6 Lower Body Dressing (QC): 6 On/Off Footwear (QC): 6 Toileting(FIM): 6 Toileting Hygiene (QC): 6 Toilet/Commode Transfer(FIM): 6 Toilet/Commode Transfer (QC): 6 Shower Transfer(FIM): 5 Additional Goals: 1-Demonstrate ADL Tasks, 2-Verbalize Understanding, 3- ImproveStrength/Teodora 1=Demonstrate adherence to instructed precautions during ADL tasks. 2=Patient will verbalize/demonstrate understanding of assistive devices/ modifications for ADL. 3=Patient will improve strength/tolerance for activity to enable patient to perform ADL's. OT Education/Plan Discharge Recommendations Plan/Recommendations: Continue POC Treatment Plan/Plan of Care Patient would benefit from OT for education, treatment and training to promote independence in ADL's, mobility, safety and/or upper extremity function for ADL' s. Plan of Care: ADL Retraining, Functional Mobility, Group Exercise/Act as Ind, UE Funct Exercise/Act Treatment Duration: Sep 29, 2018 Frequency: At least 5 of 7 days/Wk (IRF) Estimated Hrs Per Day: 1.5 hours per day Agreement: Yes Rehab Potential: Fair Time/GCodes Start Time: 09:30 Stop Time: 10:50 Total Time Billed (hr/min): 80 Billed Treatment Time 1 visit, ADL(20minutes), FA(15minutes), EXx3(45minutes) TOPHER MENG OT Sep 13, 2018 11:38
--- NOTE | 2018-09-13 12:01 | Physical Therapy Daily Note ---
PT Daily Note-Current Subjective Pt awake in room visiting with friends when PT arrived. Patient agreed to go to therapy gym for PT. Pain Numeric Pain Scale: 0-No Pain Location: No Pain Reported Appearance Patient returned to bed after PT with call light, phone with all needs met before therapist left. Mental Status Patient Orientation: Normal For Age Transfers Functional [place] Measure 0=Not Assessed/NA 4=Minimal Assistance 1=Total Assistance 5=Supervision or Setup 2=Maximal Assistance 6=Modified [place] 3=Moderate Assistance 7=Complete IndependenceIRFPAI Quality Coding Scale 6 Independent with activity with or without an assistive device 5 Patient requires set up or clean up by helper. Patient completes activity by themselves 4 Supervision or touching assist (CGA). [place] provide cues , steadying assist 3 The helper provides less than half the effort to complete the activity 2 The helper provides more than half the effort to complete the activity 1 Dependent. The helper does all the effort to complete an activity 7 Patient refused to complete or attempt activity 9 The patient did not perform the activity before the current illness or injury 88 Not attempted due to Medical conditions or safety concerns Transfers (B, C, W/C) (FIM): 5 Scootin Rollin Roll Left to Right (QC): 6 Supine to/from Sit: 6 Sit to/from Stand: 5 Weight Bearing Right Lower Extremity: Right Full Weight Bearing Left Lower Extremity: Left Full Weight Bearing Gait Training Does the Patient Walk?: Yes Gait (FIM): 4 Distance (FIM): 3=150 ft Distance: 150' Gait Level of Assist: 4 Gait Persons Needed: 1 Gait Assistive Device: Cane Small Base Quad Patient used quad cane to walk to therapy and returned to room with FWW due to fatigue. Exercises Standing: Unilateral stance, Weight shifts Standing Reps: 15 NuStep Minutes: 10 NuStep Workload: 5 Assessment Current Status: Fair Progress Pt was able to use quad cane to ambulate to PT GYM with CGA. Patient worked on close POONAM and Tandem POONAM for time. Patient has difficulty with tandem balance and must use hands throughout duration to maintain neutral. Patient then performed weight shifts that progressed to unilateral stance. Patient is able to perform but fatigue sets in quickly and patient must use parallel bars to maintain balance at times when weight shifting to L LE. Patient finished PT on NuStep before returning to room with FWW. PT Short Term Goals Short Term Goals Time Frame: Sep 15, 2018 Gait (FIM): 5 Gait Distance Comment: 200' Gait Level of Assist: 5 Gait Assistive Device: FWW PT Architectural Engineer Goals Architectural Engineer Goals PT Mcfp Goals Time Frame: Sep 29, 2018 Transfers (B,C,W/C) (FIM): 6 Sit to Lying (QC): 6 Lying-Sitting on Side/Bed(QC): 6 Sit to Stand (QC): 6 Rollin Roll Left to Right (QC): 6 Chair/Xxk-wc-Gvpjs Xfer(QC): 6 Car Transfer (QC): 6 Gait (FIM): 6 Distance: 300' Walk 10 feet (QC): 6 Walk 10ft-Uneven Surface(QC): 6 Walk 50ft with 2 Turns (QC): 6 Walk 150 ft (QC): 6 Gait Level of Assist: 6 Gait Assistive Device: FWW Stairs (FIM): 5 # of Steps: 12 1 Step (curb) (QC): 4 4 Steps (QC): 4 12 Steps (QC): 4 Stairs Level Of Assist: 5 PT Plan Problem List Problem List: Activity Tolerance, Functional Strength, Safety, Balance, Gait, Transfer Treatment/Plan Treatment Plan: Continue Plan of Care Treatment Plan: Bed Mobility, Education, Functional Activity Teodora, Functional Strength, Group Therapy, Gait, Safety, Therapeutic Exercise, Transfers Treatment Duration: Sep 29, 2018 Frequency: At least 5 of 7 days/Wk (IRF) Estimated Hrs Per Day: 1.5 hours per day Patient and/or Family Agrees t: Yes Safety Risks/Education Patient Education: Gait Training, Steps, Correct Positioning, Safety Issues Teaching Recipient: Patient Teaching Methods: Demonstration, Discussion Response to Teaching: Reinforcement Needed Time/GCodes Time In: 1125 Time Out: 1155 Total Billed Treatment Time: 30 Total Billed Treatment 1 visit EX- 10' FA 20' WILDER LOBO PT Sep 13, 2018 12:01
[2018-09-13] MEDS: ONDANSETRON 8 MG (ZOFRAN) ORAL DISSOLVE TAB PO PRN (16:44)
[2018-09-13 17:09] VITALS: BP 172/88
[2018-09-13] MEDS ORDERED: FAMOTIDINE 20 MG (PEPCID) TABLET PO PRN (17:30)
[2018-09-13] MEDS: LIDOCAINE PATCH REMOVAL TP SCH (19:59)
[2018-09-13] MEDS ORDERED: MILK OF MAGNESIA 400 MG/5 ML 30 ML UDC PO PRN (20:15)
[2018-09-13] MEDS: ATORVASTATIN 40 MG (LIPITOR) TABLET PO SCH (20:22)
[2018-09-14 05:32] VITALS: BP 152/83
[2018-09-14] MEDS: PANTOPRAZOLE 40 MG (PROTONIX) TAB PO SCH (06:12)
--- NOTE | 2018-09-14 07:48 | Progress Note (SOAP) ---
Subjective Time Seen by a Provider: 07:46 Subjective/Events-last exam Patient feels he is doing better. Patient getting around with a quad cane. Patient nauseous is at 4 p.m. daily. CVA Objective Exam Vital Signs Date Time Temp Pulse Resp B/P (MAP) Pulse Ox O2 Delivery O2 Flow Rate FiO2 09/14/18 05:32 97.4 52 20 152/83 (106) 94 Room Air 09/13/18 17:09 98.2 52 18 172/88 (116) 95 Room Air I & O 09/14/18 07:00 Intake Total 1080 ml Balance 1080 ml Capillary Refill : General Appearance: No Apparent Distress, WD/WN HEENT: Normal ENT Inspection Neck: Full Range of Motion, Normal Inspection Respiratory: Lungs Clear, Normal Breath Sounds, No Accessory Muscle Use, No Respiratory Distress Cardiovascular: Regular Rate, Rhythm, No Murmur Gastrointestinal: non tender, soft Assessment/Plan Assessment/Plan Assess & Plan/Chief Complaint CVA. Parkinson disease. Unstable gait.. . 09/11/18. CVA. Parkinson disease. Unstable gait. UTI. Leukocytosis. Hyponatremia better. To check UTI and sodium on Tuesday. . 09/12/18. CVA. Parkinson disease. Unstable gait. UTI resolved. Leukocytosis resolved. Hyponatremia resolved . 09/13/18 CVA. Parkinson disease. Hyponatremia resolved. Unstable gait. UTI resolved. Leukocytosis resolved. Patient feeling better. . 09/14/18. CVA. Parkinson disease. To check hyponatremia tomorrow. Unstable gait. Patient using quad cane to get around. UTI resolved. Leukocytosis resolved. Patient be discharged tomorrow Clinical Quality Measures DVT/VTE Risk/Contraindication: Risk Factor Score Per Nursin RFS Level Per Nursing on Admit: 4+=Very High CHELSEA MATHIS DO Sep 14, 2018 07:48
--- NOTE | 2018-09-14 09:02 | Physical Therapy Daily Note ---
PT Daily Note-Current Subjective Pt sitting up in bed upon arrival. Pt requests to use restroom before starting tx. Pt agrees to PT. Pain Location: No Pain Reported Mental Status Patient Orientation: Person, Place, Time, Situation Transfers Functional [place] Measure 0=Not Assessed/NA 4=Minimal Assistance 1=Total Assistance 5=Supervision or Setup 2=Maximal Assistance 6=Modified [place] 3=Moderate Assistance 7=Complete IndependenceIRFPAI Quality Coding Scale 6 Independent with activity with or without an assistive device 5 Patient requires set up or clean up by helper. Patient completes activity by themselves 4 Supervision or touching assist (CGA). [place] provide cues , steadying assist 3 The helper provides less than half the effort to complete the activity 2 The helper provides more than half the effort to complete the activity 1 Dependent. The helper does all the effort to complete an activity 7 Patient refused to complete or attempt activity 9 The patient did not perform the activity before the current illness or injury 88 Not attempted due to Medical conditions or safety concerns Transfers (B, C, W/C) (FIM): 6 Scootin Rollin Roll Left to Right (QC): 6 Supine to/from Sit: 6 Sit to/from Stand: 6 Sit to Lying (QC): 6 Sit to Stand (QC): 6 Chair/Avn-ps-Xyhhf Xfer(QC): 6 Bed to/from Chair: 6 Car Transfer (QC): 6 Weight Bearing Right Lower Extremity: Right Full Weight Bearing Left Lower Extremity: Left Full Weight Bearing Gait Training Does the Patient Walk?: Yes Gait (FIM): 6 Distance (FIM): 3=150 ft Distance: 200' Walk 10 feet (QC): 6 Walk 50 ft with 2 Turns(QC): 6 Walk 150 ft (QC): 6 Walking 10ft/uneven surface-QC: 6 Gait Level of Assist: 6 Gait Persons Needed: 1 Gait Assistive Device: FWW Pt has attempted with less restrictive AD but is not stable enough at this point to continue with unless its FWW. Pt walks with a slightly flexed hip position and needs VC to remain closer to FWW. Wheelchair Training Does the Pt Use a Wheelchair?: No Stair Training Stair Training: Handrails/: 2 handrails Stairs (FIM): 4 #of Steps: 8 1 Step (curb) (QC): 6 4 Steps (QC): 6 Stairs: Pattern: Reciprocal Level of Assist: 6 Balance Picking up an Object (QC): 88 Special Test Comments This is not tested due to dizziness and lightheaded pt experiences when changing positions. Treatments Pt transfers at Mod I including car transfers. Pt completes bed mobility, ambulation, walking across varying surface all at Mod I using FWW. Pt returns to room after ambulating in hallway and Therapy Commons. Pt resting at EOB at end of tx. Pt has all needs met. Assessment Current Status: Good Progress Pt fatigues after ambulating increased distances. Pt has made progress with independence and safety of mobility and transfers. PT Short Term Goals Short Term Goals Time Frame: Sep 15, 2018 Gait (FIM): 5 Gait Distance Comment: 200' Gait Level of Assist: 5 Gait Assistive Device: FWW PT Press Clipper Goals Press Clipper Goals PT Press Clipper Goals Time Frame: Sep 29, 2018 Transfers (B,C,W/C) (FIM): 6 Sit to Lying (QC): 6 Lying-Sitting on Side/Bed(QC): 6 Sit to Stand (QC): 6 Rollin Roll Left to Right (QC): 6 Chair/Fvz-mq-Nlzwl Xfer(QC): 6 Car Transfer (QC): 6 Gait (FIM): 6 Distance: 300' Walk 10 feet (QC): 6 Walk 10ft-Uneven Surface(QC): 6 Walk 50ft with 2 Turns (QC): 6 Walk 150 ft (QC): 6 Gait Level of Assist: 6 Gait Assistive Device: FWW Stairs (FIM): 5 # of Steps: 12 1 Step (curb) (QC): 4 4 Steps (QC): 4 12 Steps (QC): 4 Stairs Level Of Assist: 5 PT Plan Problem List Problem List: Activity Tolerance, Safety, Gait Treatment/Plan Treatment Plan: Continue Plan of Care Treatment Plan: Bed Mobility, Education, Functional Activity Teodora, Functional Strength, Group Therapy, Gait, Safety, Therapeutic Exercise, Transfers Treatment Duration: Sep 29, 2018 Frequency: At least 5 of 7 days/Wk (IRF) Estimated Hrs Per Day: 1.5 hours per day Patient and/or Family Agrees t: Yes Safety Risks/Education Patient Education: Gait Training, Transfer Techniques, Correct Positioning, Safety Issues Teaching Recipient: Patient Teaching Methods: Discussion Response to Teaching: Verbalize Understanding Time/GCodes Time In: 800 Time Out: 845 Total Billed Treatment Time: 45 Total Billed Treatment 1, GT (20m), FA x2 (25m) G Codes Necessary: JOEL Mcgill PTA Sep 14, 2018 09:02
[2018-09-14] MEDS: LIDOCAINE (LIDODERM) 5% PATCH TOP SCH (09:08)
[2018-09-14] MEDS: RASAGILINE MESYLATE 1 MG PO SCH (09:09)
[2018-09-14] MEDS: CLOPIDOGREL 75 MG (PLAVIX) TABLET PO SCH (09:09)
[2018-09-14] MEDS: PRAMIPEXOLE 0.5 MG TAB (MIRAPEX) PO SCH ×3 (09:09→20:30)
[2018-09-14] MEDS: ASPIRIN E.C. 81 MG (ECOTRIN) TAB PO SCH (09:09)
[2018-09-14] MEDS: SODIUM CHLORIDE 1 GM TAB (NON-FORMULARY) PO SCH ×4 (09:09→20:30)
--- NOTE | 2018-09-14 09:24 | Speech Therapy Daily Note ---
Speech Daily Progress Note Subjective Date Seen by Provider: Sep 14, 2018 Time Seen by Provider: 08:45 Pt in bed. He was wearing his left H.A. Pleasant and cooperative. Pain Numeric Pain Scale: 0-No Pain Objective Memory - Picture recall in which pt verbalizes out loud what he sees. Recall of information 20 minutes was 90% with min assist. Problem Solving - Wrong category in which pt provided with a list of words and he was to determine which word does not belong. Pt didn't understand the task initially so an example was provided by txist. Pt was 85% accurate after the example was provided. Assessment Assessment Current Status: Good Progress Treatment Plan Discontinue ST Communication Comprehension: 6 Expression: 7 Social Cognition Social Interaction: 7 Problem Solvin Memory: 4 Speech Short Term Goals Short Term Goals Short Term Goals Pt will complete various auditory/visual memory activities with at least 90% accuracy. MET 09/14/2018 Pt will follow directions for various problem solving tasks with at least 90% accuracy. MET 09/14/2018 Time Frame-ST week Comprehension: 6 Expression: 7 Social Interaction: 7 Problem Solvin Memory: 5 Speech Senior Care Goals Freight Tallier Goals Pt will demonstrate functional cognition for safety and maximum independence in the home. Goal partially met due to short rehab stay. (Approximately one week. ) Time Frame: 2 weeks Comprehension: 6 Expression: 7 Social Interaction: 7 Problem Solvin Memory: 6 Speech-Plan Patient/Family Goals Patient/Family Goals: to return home Treatment Plan Speech Therapy Treatment Plan: Discontinue ST (Pt had short rehab stay.) Pt being discharged to home on Tuesday with Speech Therapy. Treatment Duration: Sep 18, 2018 Frequency: Modified Program (IRF) (0) Estimated Hrs Per Day: Other (0) Rehab Potential: Good Pt/Family Agrees to Plan: Yes Safety Risks/Education Teaching Recipient: Patient Teaching Methods: Discussion Response to Teaching: Verbalize Understanding Discharge Recommendations Speech Therapy Home Care Time Speech Therapy Time In: 08:45 Speech Therapy Time Out: 09:15 Total Billed Time: 30 Billed Treatment Time 1, SLTS RAYO Xiong Sep 14, 2018 09:24
--- NOTE | 2018-09-14 09:43 | PM & R (SOAP) Progress Note ---
Subjective This was a face to face visit with the patient. Date Seen by Provider: Sep 14, 2018 Time Seen by Provider: 09:20 Subjective/Events-last exam Patient was seen in his room this AM Patient Modified Independent for transfers.Discharge set for tomorrow has progressed well Date Identified: Sep 14, 2018 Time Identified: 09:30 Medication Intervention: Discharge meds reviewed Objective Physician Exam Last Set of Vital Signs Vital Signs Date Time Temp Pulse Resp B/P (MAP) Pulse Ox O2 Delivery O2 Flow Rate FiO2 09/14/18 05:32 97.4 52 20 152/83 (106) 94 Room Air Capillary Refill : I&O Intake and Output 09/14/18 00:00 Intake Total 1230 ml Balance 1230 ml Intake Oral 1230 ml # Voids 6 # Bowel Movements 1 General: Alert, Oriented X3, Cooperative, No Acute Distress HEENT: Atraumatic, PERRLA, EOMI, Mucous Memb Moist/[place] Neck: Supple, No JVD Lungs: Clear to Auscultation Heart: Regular Rate Abdomen: Normal Bowel Sounds, Soft, No Tenderness Extremities: No Edema Skin: No Significant Lesion Neuro: Strength at 5/5 X4 Ext, Other (dysmetria on left with gait imbalance and Strength 5/5 in all limbs except LUE 4+/5) Psych/Mental Status: Mental Status NL Results Lab Data Laboratory Tests 09/11/18 13:00: Urine Color YELLOW, Urine Clarity CLEAR, Urine pH 5, Urine Specific [place] 1.025H, Urine Protein NEGATIVE, Urine Glucose (UA) NEGATIVE, Urine Ketones 1+H, Urine Nitrite NEGATIVE, Urine Bilirubin NEGATIVE, Urine Urobilinogen 1, Urine Leukocyte Esterase 1+H, Urine RBC (Auto) NEGATIVE, Urine RBC RARE, Urine WBC 0-2 , Urine Squamous Epithelial Cells NONE, Urine Crystals NONE, Urine Bacteria TRACE, Urine Casts NONE, Urine Mucus NEGATIVE, Urine Culture Indicated NO 09/13/18 04:32: Sodium Level 140, Potassium Level 3.7, Chloride Level 109H, Carbon Dioxide Level 19L, Anion Gap 12, Blood Urea Nitrogen 18, Creatinine 0.75, Estimat Glomerular Filtration Rate > 60, BUN/Creatinine Ratio 24, Glucose Level 99, Calcium Level 9.4 Assessment/Plan Assessment and Plan Left cerebellar stroke with mild left sided weakness and gait imbalance improving. Nausea resolved Hyponatremia resolved UTI treated [place] D controlled with med OA s/p bilateral TKRS remote Plan Continue Pt/OT Discharge remains set for tomorrow to home with family Co-Morbidities that are continuing to impact the rehab process: (include details ) FLETCHER ALMANZAR MD Sep 14, 2018 09:43
--- NOTE | 2018-09-14 09:58 | PM & R (SOAP) Progress Note ---
Subjective This was a face to face visit with the patient. Date Seen by Provider: Sep 13, 2018 Time Seen by Provider: 11:45 Subjective/Events-last exam Patient was seen in his room this AM Patient Modified Independent for transfers Objective Physician Exam Last Set of Vital Signs Vital Signs Date Time Temp Pulse Resp B/P (MAP) Pulse Ox O2 Delivery O2 Flow Rate FiO2 09/14/18 05:32 97.4 52 20 152/83 (106) 94 Room Air Capillary Refill : I&O Intake and Output 09/14/18 00:00 Intake Total 1230 ml Balance 1230 ml Intake Oral 1230 ml # Voids 6 # Bowel Movements 1 General: Alert, Oriented X3, Cooperative, No Acute Distress HEENT: Atraumatic, PERRLA, EOMI, Mucous Memb Moist/[place] Neck: Supple, No JVD Lungs: Clear to Auscultation Heart: Regular Rate Abdomen: Normal Bowel Sounds, Soft, No Tenderness Extremities: No Edema Skin: No Significant Lesion Neuro: Strength at 5/5 X4 Ext, Other (dysmetria on left with gait imbalance and Strength 5/5 in all limbs except LUE 4+/5) Psych/Mental Status: Mental Status NL Results Lab Data Laboratory Tests 09/11/18 13:00: Urine Color YELLOW, Urine Clarity CLEAR, Urine pH 5, Urine Specific [place] 1.025H, Urine Protein NEGATIVE, Urine Glucose (UA) NEGATIVE, Urine Ketones 1+H, Urine Nitrite NEGATIVE, Urine Bilirubin NEGATIVE, Urine Urobilinogen 1, Urine Leukocyte Esterase 1+H, Urine RBC (Auto) NEGATIVE, Urine RBC RARE, Urine WBC 0-2 , Urine Squamous Epithelial Cells NONE, Urine Crystals NONE, Urine Bacteria TRACE, Urine Casts NONE, Urine Mucus NEGATIVE, Urine Culture Indicated NO 09/13/18 04:32: Sodium Level 140, Potassium Level 3.7, Chloride Level 109H, Carbon Dioxide Level 19L, Anion Gap 12, Blood Urea Nitrogen 18, Creatinine 0.75, Estimat Glomerular Filtration Rate > 60, BUN/Creatinine Ratio 24, Glucose Level 99, Calcium Level 9.4 Assessment/Plan Assessment and Plan Left cerebellar stroke with mild left side weakness and gait imbalance Nausea resolved Hyponatremia improved UTI treated [place] D Controlled with med OA s/p bilateral TKRS remote Plan Continue Pt/OT Team Conference later today see report for full functional update and POC and ELOS Co-Morbidities that are continuing to impact the rehab process: (include details ) FLETCHER ALMANZAR MD Sep 14, 2018 09:58
--- NOTE | 2018-09-14 10:02 | Occupational Ther Daily Note ---
OT Current Status-Daily Note Subjective Pt lying in bed finishing up with PROGRAM MANAGEMENT SPECIALIST and nrsg in room. Pt agrees to therapy. C/o headache after therapy, reported to nrsg. Mental Status/Objective Patient Orientation: Person, Place, Time, Situation Functional [place] Measure 0=Not Assessed/NA 4=Minimal Assistance 1=Total Assistance 5=Supervision or Setup 2=Maximal Assistance 6=Modified [place] 3=Moderate Assistance 7=Complete [place] ADL-Treatment Supine to sit with modified independence, cues for hand placement. Gait to restroom with FWW. Transfer to toilet with SBA and cues for safety. Pt able to complete toileting with SBA. Transfer to walk in shower with SBA using grab bars. Pt doffed clothing with supervision. Seated bathing completed using hand held shower, able to wash and dry self, safety concerns. Pt retrieved clothing with SBA using FWW then transported to bathroom. Don pullover shirt by self. Pt donned underwear and pants by self. Donned/doffed socks by self. Pt stood at sink to brush teeth and comb hair, mod I, safety concerns. Ambulated with supervision and transferred to bed with mod I. Pt c/o headache after therapy, nrsg notified. After therapy, pt lying in bed with call light/phone in reach. All needs met in room. Functional [place] Measure 0=Not Assessed/NA 4=Minimal Assistance 1=Total Assistance 5=Supervision or Setup 2=Maximal Assistance 6=Modified [place] 3=Moderate Assistance 7=Complete IndependenceIRFPAI Quality Coding Scale 6 Independent with activity with or without an assistive device 5 Patient requires set up or clean up by helper. Patient completes activity by themselves 4 Supervision or touching assist (CGA). [place] provide cues , steadying assist 3 The helper provides less than half the effort to complete the activity 2 The helper provides more than half the effort to complete the activity 1 Dependent. The helper does all the effort to complete an activity 7 Patient refused to complete or attempt activity 9 The patient did not perform the activity before the current illness or injury 88 Not attempted due to Medical conditions or safety concerns Grooming (FIM): 6 Oral Hygiene (QC): 6 Bathing (FIM): 6 Bathing Location: L Arm, R Arm, L Upper Leg, R Upper Leg, L Lower Leg ( including foot), R Lower Leg (including foot), Chest, Abdomen, Buttocks, Perineal Area Shower/Bathe Self (QC): 6 Upper Body (FIM): 5 Upper Body Dressing (QC): 5 Lower Body Dressing (FIM): 5 Lower Body Dressing (QC): 5 On/Off Footwear (QC): 6 Transfers (B, C, W/C) (FIM): 5 Toilet/Commode Transfer (FIM): 5 Toilet Transfer (QC): 4 Shower Transfer(FIM): 5 Pt requires verbal cues for sit <--> stand for hand placement. Verbal cues to take things slowly and not zamarripa. OT Short Term Goals Short Term Goals Time Frame: Sep 15, 2018 Grooming(FIM): 5 Lower Body Dressing(FIM): 5 Toilet/Commode Transfer(FIM): 5 Comprehension(FIM): 6 Expression(FIM): 7 Social Interaction(FIM): 7 Problem Solving(FIM): 5 Memory(FIM): 5 1=Demonstrate adherence to instructed precautions during ADL tasks. 2=Patient will verbalize/demonstrate understanding of assistive devices/ modifications for ADL. 3=Patient will improve strength/tolerance for activity to enable patient to perform ADL's. OT Heating Engineer Goals Heating Engineer Goals Time Frame: Sep 29, 2018 Eating (FIM): 7 Eating (QC): 6 Groomin Oral Hygiene (QC): 6 Bathing(FIM): 5 Shower/Bathe Self (QC): 5 Upper Body Dressing(FIM): 6 Upper Body Dressing (QC): 6 Lower Body Dressing(FIM): 6 Lower Body Dressing (QC): 6 On/Off Footwear (QC): 6 Toileting(FIM): 6 Toileting Hygiene (QC): 6 Toilet/Commode Transfer(FIM): 6 Toilet/Commode Transfer (QC): 6 Shower Transfer(FIM): 5 Comprehension(FIM): 6 Expression (FIM): 7 Social Interaction(FIM): 7 Problem Solving(FIM): 6 Memory(FIM): 6 Additional Goals: 1-Demonstrate ADL Tasks, 2-Verbalize Understanding, 3- ImproveStrength/Teodora 1=Demonstrate adherence to instructed precautions during ADL tasks. 2=Patient will verbalize/demonstrate understanding of assistive devices/ modifications for ADL. 3=Patient will improve strength/tolerance for activity to enable patient to perform ADL's. OT Education/Plan Discharge Recommendations Plan/Recommendations: Continue POC Treatment Plan/Plan of Care Patient would benefit from OT for education, treatment and training to promote independence in ADL's, mobility, safety and/or upper extremity function for ADL' s. Plan of Care: ADL Retraining, Functional Mobility, Group Exercise/Act as Ind, UE Funct Exercise/Act Treatment Duration: Sep 29, 2018 Frequency: At least 5 of 7 days/Wk (IRF) Estimated Hrs Per Day: 1.5 hours per day Agreement: Yes Rehab Potential: Good Time/GCodes Start Time: 09:15 Stop Time: 10:00 Total Time Billed (hr/min): 45 Billed Treatment Time 1 visit-ADL 3 (45 min) DAVID PATTERSON Sep 14, 2018 10:02
--- NOTE | 2018-09-14 11:08 | D/C HH Face to Face Order ---
D/C Face to Face Orders Instructions for Patient Alona Castañeda [phone] Patient Instructions/FollowUp: Dr. Isaac Ruiz Physician to follow Patient: Dr. Isaac Ruiz Discharge Diet for Home: Regular Diet Patient Data-Allergies,Ht & Wt Patient Allergies: Coded Allergies: hydrocodone (Verified Allergy, Intermediate, CONFUSION, 09/07/18) Height (Feet): 5 Height (Inches): 7.00 Weight (Pounds): 190 Weight (Ounces): 0.0 Home Health Need/Face to Face Date of Face to Face: Sep 15, 2018 Clinical Findings: Generalized weakness and fatigue, Muscle weakness, Unsteady gait I have seen Pt [id number]: Yes Discharged To: Home Diagnosis/Conditions: Stroke Patient is Homebound due to: CognItive deficits, Matthew fall risk due to instabilty, Muscle weakness Homebound Status Due to the above stated illness, injury or surgical procedure (medical condition or diagnosis) and associated clinical findings, the patient is homebound because of his/her inability to leave home except with aid of a supportive device and/or person AND leaving the home requires a considerable and taxing effort or is medically contraindicated. Pt req the following assistanc: Walker Home Health Nursing Orders Home Health Services Order: Water Tender-Evaluate & Treat, Physical Therapy-Evaluate & Treat, Speech Language-Evaluate & Treat Therapy Orders Therapy Orders: OT (must have SN or PT order), Physical Therapy Therapy Specific Orders: Eval assistive deivces, Teach enviro modifications/ safety, Gait training, Increase strength/endurance, Restore ROM Certify Stmt I certify that this patient is under my care and that I, a nurse practitioner or a physician; a bindery assistant working with me, had a face to face encounter that - meets the physician face to face encounter requirements with this patient as dated. I personally scribed for FLETCHER ALMANZAR MD ([facility]) on 09/14/18 at 11:08. Electronically submitted by Colleen Yousif ([id number]). FLETCHER ALMANZAR MD Sep 14, 2018 11:08
[2018-09-14 12:00] VITALS: BP 125/76
[2018-09-14] MEDS: ONDANSETRON 8 MG (ZOFRAN) ORAL DISSOLVE TAB PO PRN (13:24)
[2018-09-14] MEDS ORDERED: ONDA8TAB13 PO (14:04)
[2018-09-14] MEDS ORDERED: ASPI-983 PO (14:04)
[2018-09-14] MEDS ORDERED: ATOR40TA PO (14:04)
[2018-09-14] MEDS ORDERED: CLOP75TA28 PO (14:04)
--- NOTE | 2018-09-14 15:14 | Therapy Group Daily Note ---
Therapy Daily Group Note Patient Education Topic Other List Below (transfers) Exercises LE Seated Exercise, UE Exercise Other/Notes Pt ambulated with FWW to OT/PT group in [facility]. Group consisted of introductions (name, place living, secret chili ingredient), socialization, UE/ LE seated exercises, memory (5 items) and safe transfers from a variety of surfaces. Pt introduced self appropriately and actively listened to peers. Pt contributed to conversations and discussions throughout group. Pt initiated conversations with peers during group. Pt verbalized understanding of educational topics and was able to give personal examples. Pt tolerated seated exercises. After therapy, pt lying in bed with call light/phone in reach. All needs met. Start Time: 13:00 Stop Time: 14:15 Total Billed Treatment Time: 75 Total Billed Treatment 1-GRP DAVID PATTERSON Sep 14, 2018 15:14
[2018-09-14 18:03] VITALS: BP 123/76
[2018-09-14] MEDS: ATORVASTATIN 40 MG (LIPITOR) TABLET PO SCH (20:29)
[2018-09-14] MEDS: LIDOCAINE PATCH REMOVAL TP SCH (20:30)
[2018-09-15 04:37] VITALS: BP 124/78
[2018-09-15 05:32] LABS: BUN/CREATININE RATIO 23; CALCIUM 9.7 MG/DL (8.5-10.1); CARBON DIOXIDE 21 MMOL/L (21-32); CHLORIDE 105 MMOL/L (98-107); CREATININE SERUM 0.78 MG/DL (0.60-1.30); GFR ESTIMATED > 60; GLUCOSE 87 MG/DL (70-105); POTASSIUM 3.9 MMOL/L (3.6-5.0); SODIUM 139 MMOL/L (135-145)
--- NOTE | 2018-09-15 07:47 | Progress Note (SOAP) ---
Subjective Time Seen by a Provider: 07:42 Subjective/Events-last exam Patient feeling good this morning. Big red candidate because patient's nauseous this. After supper last night patient had a big red and and stomach became nauseous. Patient be discharged today. Sodium 139 within normal limits Objective Exam Vital Signs Date Time Temp Pulse Resp B/P (MAP) Pulse Ox O2 Delivery O2 Flow Rate FiO2 09/15/18 05:30 Room Air 09/15/18 04:37 97.9 54 18 124/78 (93) 94 Room Air 09/14/18 18:03 98.2 60 18 123/76 (92) 95 Room Air 09/14/18 12:00 98.0 60 16 125/76 (92) 96 I & O 09/15/18 07:00 Intake Total 1170 ml Balance 1170 ml Capillary Refill : General Appearance: No Apparent Distress, WD/WN HEENT: Normal ENT Inspection, Pharynx Normal Neck: Normal Inspection, Non Tender Respiratory: Chest Non Tender, No Accessory Muscle Use, No Respiratory Distress Cardiovascular: Regular Rate, Rhythm, No Murmur Gastrointestinal: non tender, soft Results Lab Laboratory Tests 09/15/18 04:34: Sodium Level 139, Potassium Level 3.9, Chloride Level 105, Carbon Dioxide Level 21, Anion Gap 13, Blood Urea Nitrogen 18, Creatinine 0.78, Estimat Glomerular Filtration Rate > 60, BUN/Creatinine Ratio 23, Glucose Level 87, Calcium Level 9.7 Assessment/Plan Assessment/Plan Assess & Plan/Chief Complaint CVA. Parkinson disease. Unstable gait.. . 09/11/18. CVA. Parkinson disease. Unstable gait. UTI. Leukocytosis. Hyponatremia better. To check UTI and sodium on Tuesday. . 09/12/18. CVA. Parkinson disease. Unstable gait. UTI resolved. Leukocytosis resolved. Hyponatremia resolved . 09/13/18 CVA. Parkinson disease. Hyponatremia resolved. Unstable gait. UTI resolved. Leukocytosis resolved. Patient feeling better. . 09/14/18. CVA. Parkinson disease. To check hyponatremia tomorrow. Unstable gait. Patient using quad cane to get around. UTI resolved. Leukocytosis resolved. Patient be discharged tomorrow. . 09/15/18. CVA. Parkinson's disease. Hyponatremia corrected. UTI. Patient be discharged today. Patient's primary care physician should check for sodium to see if can decrease to sodium chloride Clinical Quality Measures DVT/VTE Risk/Contraindication: Risk Factor Score Per Nursin RFS Level Per Nursing on Admit: 4+=Very High CHELSEA MATHIS DO Sep 15, 2018 07:47
[2018-09-15] MEDS: PRAMIPEXOLE 0.5 MG TAB (MIRAPEX) PO SCH (08:23)
[2018-09-15] MEDS: LIDOCAINE (LIDODERM) 5% PATCH TOP SCH (08:23)
[2018-09-15] MEDS: CLOPIDOGREL 75 MG (PLAVIX) TABLET PO SCH (08:24)
[2018-09-15] MEDS: ASPIRIN E.C. 81 MG (ECOTRIN) TAB PO SCH (08:24)
[2018-09-15] MEDS: RASAGILINE MESYLATE 1 MG PO SCH (08:24)
[2018-09-15] MEDS: PANTOPRAZOLE 40 MG (PROTONIX) TAB PO SCH (08:24)
[2018-09-15] MEDS: SODIUM CHLORIDE 1 GM TAB (NON-FORMULARY) PO SCH (08:26)
--- NOTE | 2018-09-15 09:18 | PM & R (SOAP) Progress Note ---
Subjective This was a face to face visit with the patient. Date Seen by Provider: Sep 15, 2018 Time Seen by Provider: 08:40 Subjective/Events-last exam Patient was seen in his room this AM patient modified Independent for transfers All set for discharge today Has progressed well Objective Physician Exam Last Set of Vital Signs Vital Signs Date Time Temp Pulse Resp B/P (MAP) Pulse Ox O2 Delivery O2 Flow Rate FiO2 09/15/18 05:30 Room Air 09/15/18 04:37 97.9 54 18 124/78 (93) 94 Capillary Refill : I&O Intake and Output 09/15/18 00:00 Intake Total 970 ml Balance 970 ml Intake Oral 970 ml # Voids 6 # Bowel Movements 1 General: Alert, Oriented X3, Cooperative, No Acute Distress HEENT: Atraumatic, PERRLA, EOMI, Mucous Memb Moist/[place] Neck: Supple, No JVD Lungs: Clear to Auscultation Heart: Regular Rate Abdomen: Normal Bowel Sounds, Soft, No Tenderness Extremities: No Edema Skin: No Significant Lesion Neuro: Strength at 5/5 X4 Ext, Other (dysmetria on left with gait imbalance and Strength 5/5 in all limbs except LUE 4+/5) Psych/Mental Status: Mental Status NL Results Lab Data Laboratory Tests 09/13/18 04:32: Sodium Level 140, Potassium Level 3.7, Chloride Level 109H, Carbon Dioxide Level 19L, Anion Gap 12, Blood Urea Nitrogen 18, Creatinine 0.75, Estimat Glomerular Filtration Rate > 60, BUN/Creatinine Ratio 24, Glucose Level 99, Calcium Level 9.4 09/15/18 04:34: Sodium Level 139, Potassium Level 3.9, Chloride Level 105, Carbon Dioxide Level 21, Anion Gap 13, Blood Urea Nitrogen 18, Creatinine 0.78, Estimat Glomerular Filtration Rate > 60, BUN/Creatinine Ratio 23, Glucose Level 87, Calcium Level 9.7 Assessment/Plan Assessment and Plan Discharge today to home with HHC and family F/U with PCP and neuro at [facility] See orders Co-Morbidities that are continuing to impact the rehab process: (include details ) FLETCHER ALMANZAR MD Sep 15, 2018 09:18
[2018-09-15 10:12] VITALS: BP 124/78
--- NOTE | 2018-09-15 11:16 | Therapy Team Discharge Summary ---
Therapy Discharge Summary Discharge Recommendations Date of Discharge Sep 15, 2018 at 10:00 Therapy D/C Recommendations: Speech Therapy Home Care Occupational Therapy Pt admitted to ARU following acute hospitalization for CVA. On admission pt required SBA for UE dressing and min assist/CGA for transfers, dressing, and toileting. Skilled OT intervention focused on ADL training, transfers, strengthening, and home safety education. Pt made progress with therapy and by discharge is eating independently, grooming and bathing with modified independence, and dressing, toileting, and transferring with SBA. Pt met goals for eating, bathing, and shower transfer, but did not meet other goals of being modified independent with other ADLs. Pt discharged home with spouse. D/C ARU OT at this time. Decreased Activ Tolerance, Decreased UE Strength, Dependent Transfers, Impaired Funct Balance, Impaired Self-Care Skills PT Recovery Unit Operator Goals Recovery Unit Operator Goals PT Jail Goals Time Frame: Sep 29, 2018 Transfers (B,C,W/C) (FIM): 6 Roll Left to Right (QC): 6 Sit to Lying (QC): 6 Lying-Sitting on Side/Bed(QC): 6 Sit to Stand (QC): 6 Chair/Ulk-cv-Frblx Xfer(QC): 6 Car Transfer (QC): 6 Gait (FIM): 6 Distance: 300' Walk 10 feet (QC): 6 Walk 10ft-Uneven Surface(QC): 6 Walk 50ft with 2 Turns (QC): 6 Walk 150 ft (QC): 6 Gait Level of Assist: 6 Gait Assistive Device: FWW Stairs (FIM): 5 # of Steps: 12 1 Step (curb) (QC): 4 4 Steps (QC): 4 12 Steps (QC): 4 Stairs Level Of Assist: 5 OT Recovery Unit Operator Goals Recovery Unit Operator Goals Time Frame: Sep 29, 2018 Eating (FIM): 7 Eating (QC): 6 Oral Hygiene (QC): 6 Grooming(FIM): 7 Bathing(FIM): 5 Shower/Bathe Self (QC): 5 Upper Body Dressing(FIM): 6 Upper Body Dressing (QC): 6 Lower Body Dressing(FIM): 6 Lower Body Dressing (QC): 6 On/Off Footwear (QC): 6 Toileting(FIM): 6 Toileting Hygiene (QC): 6 Toilet/Commode Transfer(FIM): 6 Toilet/Commode Transfer (QC): 6 Shower Transfer(FIM): 5 Comprehension(FIM): 6 Expression (FIM): 7 Social Interaction(FIM): 7 Problem Solving(FIM): 6 Memory(FIM): 6 Additional Goals: 1-Demonstrate ADL Tasks, 2-Verbalize Understanding, 3- ImproveStrength/Teodora 1=Demonstrate adherence to instructed precautions during ADL tasks. 2=Patient will verbalize/demonstrate understanding of assistive devices/ modifications for ADL. 3=Patient will improve strength/tolerance for activity to enable patient to perform ADL's. Speech Jail Goals Jail Goals Pt will demonstrate functional cognition for safety and maximum independence in the home. Goal partially met due to short rehab stay. (Approximately one week. ) Time Frame: 2 weeks Comprehension: 6 Expression: 7 Social Interaction: 7 Problem Solvin Memory: 6 TOPHER MENG OT Sep 15, 2018 11:16
--- NOTE | 2018-09-15 11:21 | Therapy Team Discharge Summary ---
Therapy Discharge Summary Discharge Recommendations Date of Discharge Sep 15, 2018 at 10:00 Therapy D/C Recommendations: Speech Therapy Home Care Physical Therapy Patient came to rehab with CVA. Upon evaluation patient performed bed mobility with SBA, supine to sit with SBA, sit to stand with CGA, transfers with CGA, car transfers with CGA, ambulated 150' with a rolling walker with CGA ( including 50' with at least 2 turns of 90 degrees but needs min assist for 10' over an uneven surface), and can go up an down 1 steps using a rolling walker with CGA. Patient has been performing bed mobility and transfer training, balance and endurance training, functional strengthening, stair training, gait training, and education. Patient has made fair progress and has met his bed mobility and transfer superintendent container terminal goals. Now, patient perform bed mobility and transfers with mod I, car transfer mod I, ambulates 200' with a rolling walker with mod I (including 50' with at least 2 turns of 90 degrees and 10' over an uneven surface), and can go up and down 8 steps using 2 handrails with mod I. Patient has been discharged from this facility and will be discharged from PT at this time. Occupational Therapy Decreased Activ Tolerance, Decreased UE Strength, Dependent Transfers, Impaired Funct Balance, Impaired Self-Care Skills PT Recreation Officer Goals Recreation Officer Goals PT Skilled Nursing Goals Time Frame: Sep 29, 2018 Transfers (B,C,W/C) (FIM): 6 Roll Left to Right (QC): 6 Sit to Lying (QC): 6 Lying-Sitting on Side/Bed(QC): 6 Sit to Stand (QC): 6 Chair/Oed-wp-Nngao Xfer(QC): 6 Car Transfer (QC): 6 Gait (FIM): 6 Distance: 300' Walk 10 feet (QC): 6 Walk 10ft-Uneven Surface(QC): 6 Walk 50ft with 2 Turns (QC): 6 Walk 150 ft (QC): 6 Gait Level of Assist: 6 Gait Assistive Device: FWW Stairs (FIM): 5 # of Steps: 12 1 Step (curb) (QC): 4 4 Steps (QC): 4 12 Steps (QC): 4 Stairs Level Of Assist: 5 OT Skilled Nursing Goals Recreation Officer Goals Time Frame: Sep 29, 2018 Eating (FIM): 7 Eating (QC): 6 Oral Hygiene (QC): 6 Grooming(FIM): 7 Bathing(FIM): 5 Shower/Bathe Self (QC): 5 Upper Body Dressing(FIM): 6 Upper Body Dressing (QC): 6 Lower Body Dressing(FIM): 6 Lower Body Dressing (QC): 6 On/Off Footwear (QC): 6 Toileting(FIM): 6 Toileting Hygiene (QC): 6 Toilet/Commode Transfer(FIM): 6 Toilet/Commode Transfer (QC): 6 Shower Transfer(FIM): 5 Comprehension(FIM): 6 Expression (FIM): 7 Social Interaction(FIM): 7 Problem Solving(FIM): 6 Memory(FIM): 6 Additional Goals: 1-Demonstrate ADL Tasks, 2-Verbalize Understanding, 3- ImproveStrength/Teodora 1=Demonstrate adherence to instructed precautions during ADL tasks. 2=Patient will verbalize/demonstrate understanding of assistive devices/ modifications for ADL. 3=Patient will improve strength/tolerance for activity to enable patient to perform ADL's. Speech Recreation Officer Goals Skilled Nursing Goals Pt will demonstrate functional cognition for safety and maximum independence in the home. Goal partially met due to short rehab stay. (Approximately one week. ) Time Frame: 2 weeks Comprehension: 6 Expression: 7 Social Interaction: 7 Problem Solvin Memory: 6 WILDER LOBO PT Sep 15, 2018 11:21
--- NOTE | 2018-09-15 12:56 | Therapy Team Discharge Summary ---
Therapy Discharge Summary Discharge Recommendations Date of Discharge Sep 15, 2018 at 10:00 Therapy D/C Recommendations: Speech Therapy Home Care Occupational Therapy Decreased Activ Tolerance, Decreased UE Strength, Dependent Transfers, Impaired Funct Balance, Impaired Self-Care Skills Speech-Language Pathology Pt admitted to ARU following acute hospitalization for CVA Initial testing results revealed pt had deficits in short-term memory, higher level problem solving and following directions. Pt was seen for skilled ST to address areas in deficit. Pt completed various activities incorporating all the deficit areas. He was instructed in memory strategies to facilitate recall and how to implement into activities. He completed visual/auditory memory activities with high levels of accuracy and min to no assist. For higher level problem solving and following directions, he completed these activities with high levels of accuracy and min assist. Pt was dc'd to home after a short (one week ) rehab stay. Pt dc'd from skilled ST. A speech evaluation was recommended after he went home. PT Diagnostic Technologist Goals Diagnostic Technologist Goals PT Care Home Goals Time Frame: Sep 29, 2018 Transfers (B,C,W/C) (FIM): 6 Roll Left to Right (QC): 6 Sit to Lying (QC): 6 Lying-Sitting on Side/Bed(QC): 6 Sit to Stand (QC): 6 Chair/Mvg-jb-Badvk Xfer(QC): 6 Car Transfer (QC): 6 Gait (FIM): 6 Distance: 300' Walk 10 feet (QC): 6 Walk 10ft-Uneven Surface(QC): 6 Walk 50ft with 2 Turns (QC): 6 Walk 150 ft (QC): 6 Gait Level of Assist: 6 Gait Assistive Device: FWW Stairs (FIM): 5 # of Steps: 12 1 Step (curb) (QC): 4 4 Steps (QC): 4 12 Steps (QC): 4 Stairs Level Of Assist: 5 OT Care Home Goals Care Home Goals Time Frame: Sep 29, 2018 Eating (FIM): 7 Eating (QC): 6 Oral Hygiene (QC): 6 Grooming(FIM): 7 Bathing(FIM): 5 Shower/Bathe Self (QC): 5 Upper Body Dressing(FIM): 6 Upper Body Dressing (QC): 6 Lower Body Dressing(FIM): 6 Lower Body Dressing (QC): 6 On/Off Footwear (QC): 6 Toileting(FIM): 6 Toileting Hygiene (QC): 6 Toilet/Commode Transfer(FIM): 6 Toilet/Commode Transfer (QC): 6 Shower Transfer(FIM): 5 Comprehension(FIM): 6 Expression (FIM): 7 Social Interaction(FIM): 7 Problem Solving(FIM): 6 Memory(FIM): 6 Additional Goals: 1-Demonstrate ADL Tasks, 2-Verbalize Understanding, 3- ImproveStrength/Teodora 1=Demonstrate adherence to instructed precautions during ADL tasks. 2=Patient will verbalize/demonstrate understanding of assistive devices/ modifications for ADL. 3=Patient will improve strength/tolerance for activity to enable patient to perform ADL's. Speech Diagnostic Technologist Goals Care Home Goals Pt will demonstrate functional cognition for safety and maximum independence in the home. Goal partially met due to short rehab stay. (Approximately one week. ) Time Frame: 2 weeks Comprehension: 6 Expression: 7 Social Interaction: 7 Problem Solvin Memory: 6 RAYO LOZA Sep 15, 2018 12:56
--- NOTE | 2018-09-26 15:43 | DISCHARGE SUMMARY ---
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 The patient was started on aspirin and a statin. TTE on 09/04/2018 showed normal left ventricular systolic function approximately 60% ejection fraction, no significant valvular stenosis or regurgitation. CT of the head without contrast on 09/04/2018 showed redemonstration of large left inferior cerebellar infarct and posterior fossa mass effect without hemorrhagic conversion. Therapies were begun for the patient. The patient was felt to be appropriate for inpatient rehabilitation and referred to IRU at [facility] for ongoing care, so as to be closer to home. He lives with his spouse in [place], [place]. PAST MEDICAL HISTORY: Osteoarthritis, GERD, bilateral total knee replacements. MEDICAL COURSE: The patient was followed by Dr. Chamberlain and Dr. Patrick while on rehab unit. The patient was afebrile during his stay. His pulse was 54 on 09/15/2018, respirations 18, blood pressure 124/78, O2 sat 94% on room air. CBC on 09/09/2018 showed WBC 10.1, H and H 14.4/42 platelet count 170. Chemistry on 09/15/2018 showed normal electrolytes, BUN, creatinine. Blood glucose 87. UA was negative on 09/11/2018. He was continued on salt tablets for hyponatremia. Serum sodium was 131 on 09/08/2018 resolved to 139 on 09/15/2018 and salt tablets were discontinued. REHABILITATION COURSE: He progressed well with his therapies. He had increased strength and endurance and improved coordination. OT notes upon admission, the patient required standby assist for upper body dressing, min assist to contact guard for transfers, dressing and toileting. The patient made progress with therapy and by discharge was eating independently, grooming and bathing with modified independence and dressing, toileting and transfers with standby assist. PT notes upon admission, the patient was standby assist with bed mobility, contact guard for transfers, could ambulate feet with a wheeled walker with contact guard. Upon discharge, the patient is modified independent with bed mobility and transfers, modified independent for car transfers, can ambulate 200 feet with a wheeled walker with modified independence. Speech therapy notes that upon admission, he had mild deficits in short term memory higher level problem solving and following directions. He was instructed in memory strategies to facilitate recall and how to implement these activities. He completed visual auditory memory activities with higher levels are accuracy and minimal to no assistance. DISCHARGE INSTRUCTIONS: He is discharged to home with home health care and spouse and a followup with his PCP and his neurologist at [facility]. Continue current diet. DISCHARGE MEDICATIONS: ASA 81 mg p.o. daily, Lipitor 40 mg p.o. each day at bedtime, Plavix 75 mg p.o. daily, Zofran 8 mg p.o. q.6 hours p.r.n. nausea and vomiting, Lidocare 1 patch topically daily, nitroglycerin 0.4 mg sublingual p.r.n. chest pain, omeprazole 20 mg p.o. daily, Mirapex 1.5 mg p.o. t.i.d., Azilect 1 mg p.o. daily. DISCHARGE DIAGNOSES: 1. Rehabilitation left inferior cerebellar infarction. 2. Left hemiparesis. 3. Ataxic gait 4. Parkinson's disease. 5. Hyperlipidemia. 6. Urinary tract infection, treated. 7. Hyponatremia, resolved. 8. Gastroesophageal reflux disease. 9. Sleep apnea on CPAP. 10. Depression. 11. Osteoarthritis. CONDITION AT DISCHARGE: Improved and stable. PROGNOSIS: Rehab prognosis appears good for continued improvement at home and return to independent living. Job ID: [id number] DocumentID: [id number] Dictated Date: 09/26/2018 09:04:09 Stone Sandblaster Date: 09/26/2018 15:43:03 Dictated By: FLETCHER CHAMBERLAIN MD
== END 2018-09-15 10:00 | disposition home health service (06) | DRG 57 ==
PROVIDERS: ADMIT Physical Medicine & Rehabilitation; ATTEND Physical Medicine & Rehabilitation
DX: I69.354 Hemiplegia and hemiparesis following cerebral infarction affecting left non-dominant side (principal); I69.393 Ataxia following cerebral infarction; G20 Parkinson's disease; N39.0 Urinary tract infection, site not specified; E87.1 Hypo-osmolality and hyponatremia; E78.5 Hyperlipidemia, unspecified; K21.9 Gastro-esophageal reflux disease without esophagitis; G47.30 Sleep apnea, unspecified; M19.91 Primary osteoarthritis, unspecified site; F32.9 Major depressive disorder, single episode, unspecified; Z96.653 Presence of artificial knee joint, bilateral
CPT/HCPCS: 36415; 80048; 80053; 81000; 85027

== ENCOUNTER 2019-01-09 18:05 | Emergency (ER) | payer MEDICARE ==
[~2019-01-09] VITALS: Ht 170.2 cm; Wt 88.5 kg
[~2019-01-09 18:05] MED LIST: ASPI-983 PO; ATOR40TA PO; CLOP75TA28 PO; LIDO1ADH41 TP; NITR0.4T39 SL; OMEP20CA12 PO; ONDA8TAB13 PO; PRAM1.5T3 PO; RASA1TAB PO
--- OUTSIDE RECORDS SUMMARY | 2019-01-09 18:13 | XMS REPORT ---
Author Author Isaac Barger [facility] Isaac Barger MD Address [address] [place] [phone] Care Team Providers Care Rafter Cutting Machine Operator Name Role Phone Isaac Barger Unavailable PROBLEMS Type Condition ICD9-CM Code VJH01-VI Code Onset Dates Condition Status SNOMED Code Problem Angina pectoris with documented spasm I20.1 Active 31888302 Problem Spondylosis without myelopathy or radiculopathy, cervical region M47.812 Active 883800229 Problem Essential (primary) hypertension I10 Active 58451889 Problem Pure hypercholesterolemia E78.0 Active 450326396 Problem Parkinson's disease G20 Active [id number] ALLERGIES No Information ENCOUNTERS Encounter Location Date Diagnosis Isaac Barger MD [address] [place] [phone] Sep, Isaac Barger MD [address] [place] [phone] Sep, Isaac Barger MD [address] [place] [phone] Aug, Isaac Barger MD [address] [place] [phone] Feb, Other benign neoplasm of skin of other parts of face D23.39 ; Parkinson's disease G20 ; Angina pectoris with documented spasm I20.1 and Essential (primary ) hypertension I10 Isaac Barger MD [address] [place] [phone] Apr, Pure hypercholesterolemia E78.0 ; Essential (primary) hypertension I10 and Chest pain , unspecified R07.9 Isaac Barger MD [address] [place] [phone] Apr, Chest pain, unspecified R07.9 ; Pure hypercholesterolemia E78.0 ; Parkinson's disease G20 ; Essential (primary) hypertension I10 ; Atherosclerotic heart disease of [place] coronary artery without angina pectoris I25.10 and Spondylosis without myelopathy or radiculopathy, cervical region M47.812 Isaac Barger MD [address] [place] [address] 08 Jan, 2017 Isaac Barger MD [address] [place] [phone] 06 Jan, 2017 Spondylosis without myelopathy or radiculopathy, cervical region M47.812 Isaac Barger MD [address] [place] [phone] 09 Oct, 2016 Acute pharyngitis, unspecified J02.9 Isaac Barger MD [address] [place] [address] Sep, Isaac Barger MD [address] [place] [address] Jan, Paralysis agitans 332.0 Isaac Barger MD [address] [place] [phone] 18 Dec, 2015 Spondylosis without myelopathy or radiculopathy, cervical region M47.812 Isaac Barger MD [address] [place] [phone] Nov, Spondylosis without myelopathy or radiculopathy, cervical region M47.812 Isaac Barger MD [address] [place] [phone] Oct, Spondylosis without myelopathy or radiculopathy, cervical region M47.812 and Neoplasm of uncertain behavior of skin D48.5 Isaac Barger MD [address] [place] [phone] Sep, Chronic obstructive pulmonary disease, unspecified J44.9 ; Pure hypercholesterolemia E78.0 ; Parkinson's disease G20 ; Essential (primary) hypertension I10 and Atherosclerotic heart disease of [place] coronary artery without angina pectoris I25.10 Isaac Barger MD [address] [place] [phone] Aug, Isaac Barger MD [address] [place] [phone] Aug, Encounter Imm MDCR No OV Z23 and Unspecified open wound of right forearm, initial encounter S51.801A Isaac Barger MD [address] [place] [phone] Aug, Isaac Barger MD [address] [place] [phone] Jun, Isaac Barger MD [address] [place] [phone] Feb, Impacted cerumen 380.4 Isaac Barger MD [address] [place] [phone] Dec, Costochondritis 733.6 and Paralysis agitans 332.0 Isaac Barger MD [address] [place] [phone] Aug, Actinic keratosis 702.0 and Need for prophylactic vaccination and inoculation, Influenza V04.81 Isaac Barger MD [address] [place] [phone] 09 Jul, 2014 Cervical spondylosis without myelopathy 721.0 Isaac Barger MD [address] [place] [phone] Jul, Isaac Barger MD [address] [place] [address] Jun, Cervical spondylosis without myelopathy 721.0 and Paralysis agitans 332.0 Isaac Barger MD [address] [place] [phone] Jun, Isaac Barger MD [address] [place] [phone] March, Isaac Barger MD [address] [place] [phone] Jan, Slow transit constipation 564.01 Isaac Barger MD [address] [place] [phone] Jan, Paralysis agitans 332.0 Isaac Barger MD [address] [place] [address] Jan, Isaac Barger MD [address] [place] [phone] Oct, Osteoarthritis 715.16 ; Pure hypercholesterolemia 272.0 ; Unspecified essential hypertension 401.9 and Coronary atherosclerosis of unspecified type of vessel, [place] or graft 414.00 Isaac Barger MD [address] [place] [phone] Jul, Isaac Barger MD [address] [place] [address] Jul, Acute cystitis 595.0 and Need for prophylactic vaccination and inoculation, Influenza V04.81 Isaac Barger MD [address] [place] [address] Jun, Isaac Barger MD [address] [place] [phone] 13 Apr, 2013 Essential and other specified forms of tremor 333.1 ; Other vitamin B12 deficiency anemia 281.1 and Unspecified hypothyroidism 244.9 Isaac Barger MD [address] [place] [phone] 04 Jan, 2013 Neoplasm of uncertain behavior of skin 238.2 and Unspecified essential hypertension 401.9 Isaac Barger MD [address] [place] [phone] 18 Nov, 2012 Neoplasm of uncertain behavior of skin 238.2 Isaac Barger MD [address] [place] [phone] Nov, Isaac Barger MD [address] [place] [phone] Nov, Neoplasm of uncertain behavior of skin 238.2 Isaac Barger MD [address] [place] [phone] Nov, Neoplasm of uncertain behavior of skin 238.2 Isaac Barger MD [address] [place] [phone] Jul, Neoplasm of uncertain behavior of skin 238.2 ; Pure hypercholesterolemia 272.0 ; Unspecified essential hypertension 401.9 ; Coronary atherosclerosis of unspecified type of vessel, [place] or graft 414.00 and Need for prophylactic vaccination and inoculation, Influenza V04.81 Isaac Barger MD [address] [place] [phone] Jun, Isaac Barger MD [address] [place] [phone] Jun, Neoplasm of uncertain behavior of skin 238.2 ; Pure hypercholesterolemia 272.0 ; Unspecified essential hypertension 401.9 and Coronary atherosclerosis of unspecified type of vessel, [place] or graft 414.00 Isaac Barger MD [address] [place] [address] Jun, Coronary atherosclerosis of unspecified type of vessel, [place] or graft 414.00 Isaac Barger MD [address] [place] [address] Jan, Unspecified essential hypertension 401.9 ; Pure hypercholesterolemia 272.0 ; Raynaud's syndrome 443.0 and Contact dermatitis and other eczema, due to unspecified cause 692.9 Isaac Barger MD [address] [place] [phone] Jan, Isaac Barger MD [address] [place] [phone] Jan, Isaac Barger MD [address] [place] [address] Jun, Pure hypercholesterolemia 272.0 Isaac Barger MD [address] [place] [address] Jun, Pure hypercholesterolemia 272.0 Isaac Barger MD [address] [place] [phone] Jun, Pure hypercholesterolemia 272.0 Isaac Barger MD [address] [place] [address] Apr, Pure hypercholesterolemia 272.0 and Hypertrophy (benign) of prostate without urinary obstruction and other lower urinary tract symptoms [LUTS] 600.00 Isaac Barger MD [address] [place] [address] March, Chest pain, unspecified 786.50 IMMUNIZATIONS No Known Immunizations SOCIAL HISTORY Never Assessed REASON FOR VISIT needs a rx for ondansetronodt 8mg PLAN OF CARE VITAL SIGNS MEDICATIONS Medication Instructions Dosage Frequency Start Date End Date Duration Status Zofran 8 MG Orally every 4 hrs 1 tablet 4h Sep, 30 day(s) Active RESULTS No Results PROCEDURES No Known procedures INSTRUCTIONS MEDICATIONS ADMINISTERED No Known Medications MEDICAL (GENERAL) HISTORY Type Description Date Surgical History left knee arthroscopy Surgical History knee fracture, right Surgical History herniorrhaphy Surgical History right knee replacement, total 01/2014 Surgical History Heart cath 1-1998 Surgical History Heart cath -2005 Surgical History cataract removal both eyes. 2017 Hospitalization History No Hospitalization history information
--- OUTSIDE RECORDS SUMMARY | 2019-01-09 18:14 | XMS REPORT ---
Author Author Isaac Barger Organization Isaac Barger MD Address [address] [place] [id number] Care Team Providers Care Real Estate Economist Name Role Phone Isaac Barger Unavailable PROBLEMS Type Condition ICD9-CM Code LSM96-XU Code Onset Dates Condition Status SNOMED Code Problem Angina pectoris with documented spasm I20.1 Active 53197188 Problem Spondylosis without myelopathy or radiculopathy, cervical region M47.812 Active 660925053 Problem Essential (primary) hypertension I10 Active 82528959 Problem Pure hypercholesterolemia E78.0 Active 131163480 Problem Parkinson's disease G20 Active [id number] ALLERGIES No Information ENCOUNTERS Encounter Location Date Diagnosis Isaac Barger MD [address] [place] [address] Sep, Isaac Barger MD [address] [place] [address] Aug, Isaac Barger MD [address] [place] [phone] Feb, Other benign neoplasm of skin of other parts of face D23.39 ; Parkinson's disease G20 ; Angina pectoris with documented spasm I20.1 and Essential (primary ) hypertension I10 Isaac Barger MD [address] [place] [phone] Apr, Pure hypercholesterolemia E78.0 ; Essential (primary) hypertension I10 and Chest pain , unspecified R07.9 Isaac Barger MD [address] [place] [address] Apr, Chest pain, unspecified R07.9 ; Pure hypercholesterolemia E78.0 ; Parkinson's disease G20 ; Essential (primary) hypertension I10 ; Atherosclerotic heart disease of [place] coronary artery without angina pectoris I25.10 and Spondylosis without myelopathy or radiculopathy, cervical region M47.812 Isaac Barger MD [address] [place] [address] Jan, Isaac Barger MD [address] [place] [phone] 06 Jan, 2017 Spondylosis without myelopathy or radiculopathy, cervical region M47.812 Isaac Barger MD [address] [place] [phone] 09 Oct, 2016 Acute pharyngitis, unspecified J02.9 Isaac Barger MD [address] [place] [address] Sep, Isaac Barger MD [address] [place] [address] Jan, Paralysis agitans 332.0 Isaac Barger MD [address] [place] [address] 18 Dec, 2015 Spondylosis without myelopathy or radiculopathy, cervical region M47.812 Isaac Barger MD [address] [place] [address] Nov, Spondylosis without myelopathy or radiculopathy, cervical region M47.812 Isaac Barger MD [address] [place] [address] Oct, Spondylosis without myelopathy or radiculopathy, cervical region M47.812 and Neoplasm of uncertain behavior of skin D48.5 Isaac Barger MD [address] [place] [phone] Sep, Chronic obstructive pulmonary disease, unspecified J44.9 ; Pure hypercholesterolemia E78.0 ; Parkinson's disease G20 ; Essential (primary) hypertension I10 and Atherosclerotic heart disease of [place] coronary artery without angina pectoris I25.10 Isaac Barger MD [address] [place] [address] Aug, Isaac Barger MD [address] [place] [phone] Aug, Encounter Imm MDCR No OV Z23 and Unspecified open wound of right forearm, initial encounter S51.801A Isaac Barger MD [address] [place] [phone] Aug, Isaac Barger MD [address] [place] [phone] Jun, Isaac Barger MD [address] [place] [phone] Feb, Impacted cerumen 380.4 Isaac Barger MD [address] [place] [phone] 12 Dec, 2014 Costochondritis 733.6 and Paralysis agitans 332.0 Isaac Barger MD [address] [place] [address] Aug, Actinic keratosis 702.0 and Need for prophylactic vaccination and inoculation, Influenza V04.81 Isaac Barger MD [address] [place] [phone] 09 Jul, 2014 Cervical spondylosis without myelopathy 721.0 Isaac Barger MD [address] [place] [address] Jul, Isaac Barger MD [address] [place] [phone] Jun, Cervical spondylosis without myelopathy 721.0 and Paralysis agitans 332.0 Isaac Barger MD [address] [place] [address] Jun, Isaac Barger MD [address] [place] [phone] March, Isaac Barger MD [address] [place] [phone] Jan, Slow transit constipation 564.01 Isaac Barger MD [address] [place] [address] Jan, Paralysis agitans 332.0 Isaac Barger MD [address] [place] [address] Jan, Isaac Barger MD [address] [place] [address] Oct, Osteoarthritis 715.16 ; Pure hypercholesterolemia 272.0 ; Unspecified essential hypertension 401.9 and Coronary atherosclerosis of unspecified type of vessel, [place] or graft 414.00 Isaac Barger MD [address] [place] [phone] Jul, Isaac Barger MD [address] [place] [address] Jul, Acute cystitis 595.0 and Need for prophylactic vaccination and inoculation, Influenza V04.81 Isaac Barger MD [address] [place] [phone] Jun, Isaac Barger MD [address] [place] [address] Apr, Essential and other specified forms of tremor 333.1 ; Other vitamin B12 deficiency anemia 281.1 and Unspecified hypothyroidism 244.9 Isaac Barger MD [address] [place] [phone] 04 Jan, 2013 Neoplasm of uncertain behavior of skin 238.2 and Unspecified essential hypertension 401.9 Isaac Barger MD [address] [place] [address] 18 Nov, 2012 Neoplasm of uncertain behavior of skin 238.2 Isaac Barger MD [address] [place] [phone] Nov, Isaac Barger MD [address] [place] [phone] Nov, Neoplasm of uncertain behavior of skin 238.2 Isaac Barger MD [address] [place] [address] Nov, Neoplasm of uncertain behavior of skin 238.2 Isaac Barger MD [address] [place] [address] Jul, Neoplasm of uncertain behavior of skin 238.2 ; Pure hypercholesterolemia 272.0 ; Unspecified essential hypertension 401.9 ; Coronary atherosclerosis of unspecified type of vessel, [place] or graft 414.00 and Need for prophylactic vaccination and inoculation, Influenza V04.81 Isaac Barger MD [address] [place] [address] Jun, Isaac Barger MD [address] [place] [address] Jun, Neoplasm of uncertain behavior of skin 238.2 ; Pure hypercholesterolemia 272.0 ; Unspecified essential hypertension 401.9 and Coronary atherosclerosis of unspecified type of vessel, [place] or graft 414.00 Isaac Barger MD [address] [place] [address] Jun, Coronary atherosclerosis of unspecified type of vessel, [place] or graft 414.00 Isaac Barger MD [address] [place] [address] Jan, Unspecified essential hypertension 401.9 ; Pure hypercholesterolemia 272.0 ; Raynaud's syndrome 443.0 and Contact dermatitis and other eczema, due to unspecified cause 692.9 Isaac Barger MD [address] [place] [address] Jan, Isaac Barger MD [address] [place] [address] Jan, Isaac Barger MD [address] [place] [address] Jun, Pure hypercholesterolemia 272.0 Isaac Barger MD [address] [place] [address] Jun, Pure hypercholesterolemia 272.0 Isaac Barger MD [address] [place] [address] Jun, Pure hypercholesterolemia 272.0 Isaac Barger MD [address] [place] [address] Apr, Pure hypercholesterolemia 272.0 and Hypertrophy (benign) of prostate without urinary obstruction and other lower urinary tract symptoms [LUTS] 600.00 Isaac Barger MD [address] [place] [address] March, Chest pain, unspecified 786.50 IMMUNIZATIONS No Known Immunizations SOCIAL HISTORY Never Assessed REASON FOR VISIT rx PLAN OF CARE VITAL SIGNS MEDICATIONS Medication Instructions Dosage Frequency Start Date End Date Duration Status Pantoprazole Sodium 40 MG Orally Once a day 1 tablet 24h Sep, 90 days Active RESULTS No Results PROCEDURES No Known procedures INSTRUCTIONS MEDICATIONS ADMINISTERED No Known Medications MEDICAL (GENERAL) HISTORY Type Description Date Surgical History left knee arthroscopy Surgical History knee fracture, right Surgical History herniorrhaphy Surgical History right knee replacement, total 01/2014 Surgical History Heart cath -1998 Surgical History Heart cath -2005 Surgical History cataract removal both eyes. 2017 Hospitalization History No Hospitalization history information
--- OUTSIDE RECORDS SUMMARY | 2019-01-09 18:21 | XMS REPORT | Continuity of Care Document ---
Demographics x Preferred Language Unknown Marital Status Unknown Hoahaoism Affiliation Unknown Race Unknown Ethnic Group Unknown Author Author [facility] Organization [facility] Address Unknown Phone Unavailable Allergies Active Description Code Type Severity Reaction Onset Reported/Identified Relationship to Patient Clinical Status Yes bee stings Miscellaneous Allergy N/A N/A Yes Hydrocodone 1554 Drug Allergy N /A makes him crazy Yes morphine 1545 Drug Allergy N/A whole body became warm Yes HYDROCODONE-ACETAMINOPHEN [id number] Drug Allergy N/A N/A Yes MORPHINE SULFATE 78364 Drug Allergy N/A N/A Yes BEE STINGS 14011993 ENVIRONMENTAL N/A N/A Yes HYDROCODONE 76998543 DRUG N/A N/A Yes LORTAB [id number] BRANDNAME N/A N/A Yes MORPHINE 32222901 DRUG N/A N/A Yes bee venom (honey bee) [id number] Drug Allergy Unknown N/A 01/26/2014 Yes hydrocodone [id number] Drug Allergy Unknown Hallucinations 01/26/2014 Yes morphine [id number] Drug Allergy Unknown N/A 01/26/2014 Yes venom-honey bee [id number] Drug Allergy Unknown N/A 01/26/2014 Yes acetaminophen [id number] Drug Allergy Moderate CONFUSION 09/07/2018 Yes hydrocodone [id number] Drug Allergy Moderate CONFUSION 09/07/2018 Medications Medication Packaging Start Date Stop Date [...] 07/07/2016 Other I25.10 ATHSCL HEART DISEASE OF [place] CORONARY ARTERY W/O ANG PCTRS 07/07/2016 Other M47.812 SPONDYLOSIS W/O MYELOPATHY OR RADICULOPATHY, CERVICAL REGION 10/14/2016 Other 595.0 10/14/2016 Other J44.9 CHRONIC OBSTRUCTIVE PULMONARY DISEASE, UNSPECIFIED 10/14/2016 Other I25.10 ATHSCL HEART DISEASE OF [place] CORONARY ARTERY W/O ANG PCTRS 10/14/2016 Other M47.812 SPONDYLOSIS W/O MYELOPATHY OR RADICULOPATHY, CERVICAL REGION 10/14/2016 BABAR CHANDRA MD Other M54.2 CERVICALGIA 10/28/2016 Other 595.0 10/28/2016 Other J44.9 CHRONIC OBSTRUCTIVE PULMONARY DISEASE, UNSPECIFIED 10/28/2016 Other I25.10 ATHSCL HEART DISEASE OF [place] CORONARY ARTERY W/O ANG PCTRS 10/28/2016 Other M47.812 SPONDYLOSIS W/O MYELOPATHY OR RADICULOPATHY, CERVICAL REGION 10/28/2016 BABAR CHANDRA MD Other M54.2 CERVICALGIA 10/28/2016 BABAR CHANDRA MD Other M54.2 CERVICALGIA 11/24/2016 BABAR CHANDRA MD Other M54.2 CERVICALGIA 04/28/2017 Other 595.0 04/28/2017 Other J44.9 CHRONIC OBSTRUCTIVE PULMONARY DISEASE, UNSPECIFIED 04/28/2017 Other I25.10 ATHSCL HEART DISEASE OF [place] CORONARY ARTERY W/O ANG PCTRS 04/28/2017 Other M47.812 SPONDYLOSIS W/O MYELOPATHY OR RADICULOPATHY, CERVICAL REGION 04/28/2017 BABAR CHANDRA MD Other M54.2 CERVICALGIA 04/28/2017 BABAR CHANDRA MD Other M54.2 CERVICALGIA 04/28/2017 BABAR CHANDRA MD Other M54.2 CERVICALGIA 09/14/2018 YOHAN GUZMÁN, FLETCHER E Ot E78.5 HYPERLIPIDEMIA, UNSPECIFIED 09/14/2018 YOHAN GUZMÁN, FLETCHER Lin Ot E87.1 HYPO-OSMOLALITY AND HYPONATREMIA 09/14/2018 YOHAN GUZMÁN, FLETCHER E Ot F32.9 MAJOR DEPRESSIVE DISORDER, SINGLE EPISOD 09/14/2018 YOHAN GUZMÁN, FLETCHER E Ot G20 PARKINSON'S DISEASE 09/14/2018 FLETCHER ALMANZAR MD Ot G47.30 SLEEP APNEA, UNSPECIFIED 09/14/2018 FLETCHER ALMANZAR MD Ot I63.9 CEREBRAL INFARCTION, UNSPECIFIED 09/14/2018 FLETCHER ALMANZAR MD Ot I69.354 HEMIPLGA FOLLOWING CEREBRAL INFRC AFFECT 09/14/2018 FLETCHER ALMANZAR MD Ot 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 09/14/2018 FLETCHER ALMANZAR MD Ot K21.9 GASTRO-ESOPHAGEAL REFLUX DISEASE WITHOUT 09/14/2018 FLETCHER ALMANZAR MD Ot M19.91 PRIMARY OSTEOARTHRITIS, UNSPECIFIED SITE 09/14/2018 FLETCHER ALMANZAR MD Ot N39.0 URINARY TRACT INFECTION, SITE NOT SPECIF 09/14/2018 FLETCHER ALMANZAR MD E Ot Z96.653 PRESENCE OF ARTIFICIAL KNEE JOINT, BILAT 09/15/2018 FLETCHER ALMANZAR MD Ot E78.5 HYPERLIPIDEMIA, UNSPECIFIED 09/15/2018 FLETCHER ALMANZAR MD E Ot E87.1 HYPO-OSMOLALITY AND HYPONATREMIA 09/15/2018 FLETCHER ALMANZAR MD Ot F32.9 MAJOR DEPRESSIVE DISORDER, SINGLE EPISOD 09/15/2018 FLETCHER ALMANZAR MD E Ot G20 PARKINSON'S DISEASE 09/15/2018 FLETCHER ALMANZAR MD Ot G47.30 SLEEP APNEA, UNSPECIFIED 09/15/2018 FLETCHER ALMANZAR MD Ot I63.9 CEREBRAL INFARCTION, UNSPECIFIED 09/15/2018 FLETCHER ALMANZAR MD Ot I69.354 HEMIPLGA FOLLOWING CEREBRAL INFRC AFFECT 09/15/2018 FLETCHER ALMANZAR MD E Ot 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 09/15/2018 FLETCHER ALMANZAR MD Ot K21.9 GASTRO-ESOPHAGEAL REFLUX DISEASE WITHOUT 09/15/2018 FLETCHER ALMANZAR MD Ot M19.91 PRIMARY OSTEOARTHRITIS, UNSPECIFIED SITE 09/15/2018 FLETCHER ALMANZAR MD Ot N39.0 URINARY TRACT INFECTION, SITE NOT SPECIF 09/15/2018 FLETCHER ALMANZAR MD E Ot Z96.653 PRESENCE OF ARTIFICIAL KNEE JOINT, BILAT Procedures Code [place] [address] POLYSOMNOGRAPHY, 4 OR MORE 01/21/2016 20433 POLYSOMNOGRAPHY W/CPAP 04/06/2016 Results Test Result Range Automated blood complete blood count (hemogram) panel - 09/08/18 05:50 Blood leukocytes automated count (number/volume) 20.5 10*3/uL 4.3-11.0 Blood erythrocytes automated count (number/volume) 5.20 10*6/uL 4.35-5.85 Venous blood hemoglobin measurement (mass/volume) 15.8 g/dL 13.3-17.7 Blood hematocrit (volume fraction) 44 % 40-54 Automated erythrocyte mean corpuscular volume 85 [foz_us] 80-99 Automated erythrocyte mean corpuscular hemoglobin (mass per erythrocyte) 30 pg 25-34 Automated erythrocyte mean corpuscular hemoglobin concentration measurement ( mass/volume) 36 g/dL 32-36 Automated erythrocyte distribution width ratio 13.2 % 10.0-14.5 Automated blood platelet count (count/volume) 168 10*3/uL 130-400 Automated blood platelet mean volume measurement 10.0 [foz_us] 7.4-10.4 Comprehensive metabolic panel - 09/08/18 05:50 Serum or plasma sodium measurement (moles/volume) 131 mmol/L 135-145 Serum or plasma potassium measurement (moles/volume) 3.8 mmol/L 3.6-5.0 Serum or plasma chloride measurement (moles/volume) 101 mmol/L 98-107 Carbon dioxide 17 mmol/L 21-32 Serum or plasma anion gap determination (moles/volume) 13 mmol/L 5-14 Serum or plasma urea nitrogen measurement (mass/volume) 15 mg/dL 7-18 Serum or plasma creatinine measurement (mass/volume) 0.70 mg/dL 0.60-1.30 Serum or plasma urea nitrogen/creatinine mass ratio 21 NRG Serum or plasma creatinine measurement with calculation of estimated glomerular filtration rate > NRG Serum or plasma glucose measurement (mass/volume) 132 mg/dL 70-105 Serum or plasma calcium measurement (mass/volume) 9.4 mg/dL 8.5-10.1 Serum or plasma total bilirubin measurement (mass/volume) 2.3 mg/dL 0.1-1.0 Serum or plasma alkaline phosphatase measurement (enzymatic activity/volume) 74 U/L 40-136 Serum or plasma aspartate aminotransferase measurement (enzymatic activity/ volume) 29 U/L 5-34 Serum or plasma alanine aminotransferase measurement (enzymatic activity/volume ) 40 U/L 0-55 Serum or plasma protein measurement (mass/volume) 6.9 g/dL 6.4-8.2 Serum or plasma albumin measurement (mass/volume) 3.9 g/dL 3.2-4.5 CALCIUM CORRECTED 9.5 mg/dL 8.5-10.1 Automated blood complete blood count (hemogram) panel - 09/09/18 05:34 Blood leukocytes automated count (number/volume) 10.1 10*3/uL 4.3-11.0 Blood erythrocytes automated count (number/volume) 4.73 10*6/uL 4.35-5.85 Venous blood hemoglobin measurement (mass/volume) 14.4 g/dL 13.3-17.7 Blood hematocrit (volume fraction) 42 % 40-54 Automated erythrocyte mean corpuscular volume 88 [foz_us] 80-99 Automated erythrocyte mean corpuscular hemoglobin (mass per erythrocyte) 30 pg 25-34 Automated erythrocyte mean corpuscular hemoglobin concentration measurement ( mass/volume) 35 g/dL 32-36 Automated erythrocyte distribution width ratio 13.1 % 10.0-14.5 Automated blood platelet count (count/volume) 170 10*3/uL 130-400 Automated blood platelet mean volume measurement 10.0 [foz_us] 7.4-10.4 Whole blood basic metabolic panel - 09/09/18 05:34 Serum or plasma sodium measurement (moles/volume) 136 mmol/L 135-145 Serum or plasma potassium measurement (moles/volume) 3.8 mmol/L 3.6-5.0 Serum or plasma chloride measurement (moles/volume) 105 mmol/L 98-107 Carbon dioxide 19 mmol/L 21-32 Serum or plasma anion gap determination (moles/volume) 12 mmol/L 5-14 Serum or plasma urea nitrogen measurement (mass/volume) 16 mg/dL 7-18 Serum or plasma creatinine measurement (mass/volume) 0.75 mg/dL 0.60-1.30 Serum or plasma urea nitrogen/creatinine mass ratio 21 NRG Serum or plasma creatinine measurement with calculation of estimated glomerular filtration rate > NRG Serum or plasma glucose measurement (mass/volume) 108 mg/dL 70-105 Serum or plasma calcium measurement (mass/volume) 9.0 mg/dL 8.5-10.1 Complete urinalysis with reflex to culture - 09/11/18 13:00 Urine color determination YELLOW NRG Urine clarity determination CLEAR NRG Urine pH measurement by test strip 5 5-9 Specific gravity of urine by test strip 1.025 1.016- 1.022 Urine protein assay by test strip, semi-quantitative NEGATIVE NEGATIVE Urine glucose detection by automated test strip NEGATIVE NEGATIVE Erythrocytes detection in urine sediment by light microscopy NEGATIVE NEGATIVE Urine ketones detection by automated test strip 1+ NEGATIVE Urine nitrite detection by test strip NEGATIVE NEGATIVE Urine total bilirubin detection by test strip NEGATIVE NEGATIVE Urine urobilinogen measurement by automated test strip (mass/volume) 1 mg/dL NORMAL Urine leukocyte esterase detection by dipstick 1+ NEGATIVE Automated urine sediment erythrocyte count by microscopy (number/high power field) RARE NRG Automated urine sediment leukocyte count by microscopy (number/high power field ) [HPF] NRG Bacteria detection in urine sediment by light microscopy TRACE NRG Squamous epithelial cells detection in urine sediment by light microscopy NONE NRG Crystals detection in urine sediment by light microscopy NONE NRG Casts detection in urine sediment by light microscopy NONE NRG Mucus detection in urine sediment by light microscopy NEGATIVE NRG Complete urinalysis with reflex to culture NO NRG Whole blood basic metabolic panel - 09/13/18 04:32 Serum or plasma sodium measurement (moles/volume) 140 mmol/L 135-145 Serum or plasma potassium measurement (moles/volume) 3.7 mmol/L 3.6-5.0 Serum or plasma chloride measurement (moles/volume) 109 mmol/L 98-107 Carbon dioxide 19 mmol/L 21-32 Serum or plasma anion gap determination (moles/volume) 12 mmol/L 5-14 Serum or plasma urea nitrogen measurement (mass/volume) 18 mg/dL 7-18 Serum or plasma creatinine measurement (mass/volume) 0.75 mg/dL 0.60-1.30 Serum or plasma urea nitrogen/creatinine mass ratio 24 NRG Serum or plasma creatinine measurement with calculation of estimated glomerular filtration rate > NRG Serum or plasma glucose measurement (mass/volume) 99 mg/dL 70-105 Serum or plasma calcium measurement (mass/volume) 9.4 mg/dL 8.5-10.1 Whole blood basic metabolic panel - 09/15/18 04:34 Serum or plasma sodium measurement (moles/volume) 139 mmol/L 135-145 Serum or plasma potassium measurement (moles/volume) 3.9 mmol/L 3.6-5.0 Serum or plasma chloride measurement (moles/volume) 105 mmol/L 98-107 Carbon dioxide 21 mmol/L 21-32 Serum or plasma anion gap determination (moles/volume) 13 mmol/L 5-14 Serum or plasma urea nitrogen measurement (mass/volume) 18 mg/dL 7-18 Serum or plasma creatinine measurement (mass/volume) 0.78 mg/dL 0.60-1.30 Serum or plasma urea nitrogen/creatinine mass ratio 23 NRG Serum or plasma creatinine measurement with calculation of estimated glomerular filtration rate > NRG Serum or plasma glucose measurement (mass/volume) 87 mg/dL 70-105 Serum or plasma calcium measurement (mass/volume) 9.7 mg/dL 8.5-10.1 Encounters ACCT No. Visit Date/Time Discharge Status Pt. Type Provider Facility Loc./Unit Complaint [id number] 04/05/2016 19:41:00 04/06/2016 04:15:00 DIS Outpatient SHAWNA HUDSON [facility] 2F [id number] 01/20/2016 19:28:00 01/21/2016 05:50:00 DIS Outpatient SHAWNA HUDSON [facility] 2F [id number] 04/27/2017 12:47:00 Document Registration [id number] 09/06/2018 09:59:15 Document Registration [id number] 10/04/2016 02:31:01 ACT Unknown [id number] 10/28/2016 11:37:00 10/28/2016 23:59:59 CLS Outpatient PRATEEK GUZMÁN [facility] PAINCLINIC NECK PAIN [id number] 10/14/2016 09:26:00 10/14/2016 23:59:59 CLS Outpatient PRATEEK GUZMÁN [facility] PAINCLINIC BACK PAIN [id number] 09/23/2016 08:32:00 09/23/2016 23:59:59 CLS Outpatient PRATEEK GUZMÁN [facility] PAINCLINIC NECK AND BACK PAIN [id number] 07/07/2016 14:16:00 Document Registration [id number] 07/07/2016 14:16:00 Document Registration [id number] 07/07/2016 14:16:00 Document Registration [id number] 10/02/2015 14:01:00 Document Registration [id number] 09/30/2015 13:47:00 Document Registration [id number] 01/26/2014 22:15:00 Document Registration [id number] 12/14/2016 12:06:58 12/14/2016 12:06:58 DIS Outpatient [facility] [id number] 01/14/2014 19:12:15 01/14/2014 23:59:59 CLS Outpatient Mojgan Guaman [id number] 09/07/2018 18:10:00 09/15/2018 10:00:00 DIS Inpatient YOHAN GUZMÁN, FLETCHER [place] [facility] STROKE [id number] 01/08/2019 08:45:00 ACT Outpatient GAIL SHEA [facility]
--- NOTE | 2019-01-09 18:42 | ED Headache ---
General Chief Complaint: Head/Cervical Problems Stated Complaint: HEADACHE, PER PT PREVIOUS STROKE Nursing Triage Note: ARRIVED VIA AMB TO ROOM 05. STATES APPX 1 HR [employer] IMPAIRED HE EXPERIENCED SUDDEN RIGHT SIDED HEAD PAIN THAT WENT AWAY ON ITS OWN. ALSO HAS A BLOOD SHOT RIGHT EYE THAT HE NOTICED TODAY. NO INJURY NOTED. STATES HE HAS HAD A RECENT STROKE SO THIS HEADACHE ALARMED HIM. 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 One of his main concerns was that he also noticed he had developed what appeared to be blood in the right eye (subconjunctival hemorrhage). His vision was not affected. He has had no weakness, numbness, or tingling except for some chronic numbness in the left upper extremity ever since his stroke, unchanged recently. He said that he had severe vertigo when initially diagnosed with a stroke, he has had minimal issues with persistent vertigo since then and again this also is not new or worsened today. No vomiting. No lightheadedness or syncope. No chest pain or shortness of breath or palpitations. Patient has started doing some light exercise this week with his upper body, prior to onset of his headache he had been out in his yard but denies exerting himself and the headache started when he was back seated at rest. He currently denies any symptoms. Allergies and Home Medications Allergies Coded Allergies: hydrocodone (Verified Allergy, Intermediate, CONFUSION, 09/07/18) Home Medications Aspirin 81 Mg Tablet.dr, 81 MG PO DAILY Prescribed by: FLETCHER ALMANZAR on 09/14/18 140 Atorvastatin Calcium 40 Mg Tablet, 40 MG PO HS Prescribed by: FLETCHER ALMANZAR on 09/14/18 140 Clopidogrel Bisulfate 75 Mg Tablet, 75 MG PO DAILY Prescribed by: FLETCHER ALMANZAR on 09/14/18 1404 Lidocaine 1 Each Adh..patch, 1 PATCH TP DAILY, (Reported) Nitroglycerin 0.4 Mg Tab.subl, 0.4 MG SL UD PRN for CHEST PAIN, (Reported) Omeprazole 20 Mg Capsule.dr, 20 MG PO DAILY, (Reported) Ondansetron 8 Mg Tab.rapdis, 8 MG PO Q6H PRN for NAUSEA/VOMITING-1ST LINE Prescribed by: FLETCHER ALMANZAR on 09/14/18 1404 Pramipexole Di-HCl 1.5 Mg Tablet, 1.5 MG PO TID, (Reported) Rasagiline Mesylate 1 Mg Tablet, 1 MG PO DAILY, (Reported) Patient Home Medication List Home Medication List Reviewed: Yes Review of Systems Review of Systems Constitutional: no symptoms reported Eyes: See HPI Ears, Nose, Mouth, Throat: no symptoms reported Respiratory: no symptoms reported Cardiovascular: no symptoms reported Gastrointestinal: no symptoms reported Genitourinary: no symptoms reported Musculoskeletal: no symptoms reported Skin: no symptoms reported Psychiatric/Neurological: Headache Past Nfrceis-Iavtqc-Fpgkcl Hx Patient Social History Alcohol Use: Denies Use Recreational Drug Use: No Smoking Status: Never a Smoker Recent Foreign Travel: No Contact w/Someone Who Travel: No Recent Infectious Disease Expo: No Recent Hopitalizations: Yes Immunizations Up To Date Date of Pneumonia Vaccine: Aug 30, 2017 Date of Influenza Vaccine: Jul 06, 2018 Seasonal Allergies Seasonal Allergies: No Past Medical History Respiratory: Yes Sleep Apnea Currently Using CPAP: Yes Cardiac: No Neurological: Yes Seizure Disorder Genitourinary: No Kidney Stones Gastrointestinal: Yes Gastroesophageal Reflux Degenerate Disk Disease, Arthritis, Fractures Endocrine: No Cataract Loss of Vision: Denies Hearing Impairment: Hard of Hearing Cancer: Yes Skin Did You Recieve Any Treatments: No Psychosocial: Yes Depression Integumentary: No Blood Disorders: No Physical Exam Vital Signs Vital Signs - First Documented 01/09/19 18:18 Temp 97.8 Pulse 90 Resp 16 B/P (MAP) 137/84 (101) Pulse Ox 92 Capillary Refill : Less Than 3 Seconds Height, Weight, BMI Height: 5'7.00" Weight: 195lbs. 8.0oz. [id number]; 29.8 BMI Method:Stated General Appearance: no apparent distress HEENT: PERRL/EOMI, other (mild right subconjunctival hemorrhage) Neck: supple Cardiovascular: normal peripheral pulses, regular rate, rhythm, no murmur Respiratory: normal breath sounds Gastrointestinal: non tender, soft Psychiatric: alert; No depressed affect Crainal Nerves: normal hearing, normal speech, PERRL; No facial asymmetry Coordination/Gait: normal finger to nose Motor/Sensory: other (there is minimal drift in the left upper extremity and lower extremity, minimal subjective numbness in the left upper extremity.) Skin: warm/dry Progress/Results/Core Measures Results/Orders Lab Results Laboratory Tests Test 01/09/19 18:42 Range/Units White Blood Count 5.9 4.3-11.0 10^3/uL Red Blood Count 4.96 4.35-5.85 10^6/uL Hemoglobin 14.9 13.3-17.7 G/DL Hematocrit 45 40-54 % Mean Corpuscular Volume 90 80-99 FL Mean Corpuscular Hemoglobin 30 25-34 PG Mean Corpuscular Hemoglobin Concent 33 32-36 G/DL Red Cell Distribution Width 13.0 10.0-14.5 % Platelet Count 205 130-400 10^3/uL Mean Platelet Volume 9.9 7.4-10.4 FL My Orders Orders - CHARMAINE REYNOSO DO Ct Head Wo (01/09/19 18:36) Ekg Tracing (01/09/19 18:36) Cbc No Diff (01/09/19 18:36) Basic Metabolic Panel (01/09/19 18:36) Vital Signs/I&O 01/09/19 18:18 Temp 97.8 Pulse 90 Resp 16 B/P (MAP) 137/84 (101) Pulse Ox 92 Blood Pressure Mean: 101 Progress Progress Note : Progress Note This is a 73-year-old man with a history of ischemic cerebellar stroke about 4 months ago presenting today with relatively abrupt onset of moderate severity right-sided headache at rest and a small subconjunctival hemorrhage. He does take Plavix. Onset of headache now was about an hour and a half ago, a negative noncontrast CT at this point should have adequate sensitivity to rule out subarachnoid hemorrhage. His headache was not exertional, was not "worst of life", no photophobia, no neck symptoms, no syncope. His headache is more of an incidental complaint he states, as he was mainly concerned about the visible blood in his eye. In reviewing documentation there is no discussion of aneurysms identified on outside hospital imaging, no neurosurgical intervention. He is at his neurologic baseline at this time and never experiences new neurologic symptoms today. He is relieved that the subconjunctival hemorrhage is not dangerous. His headache is also completely relieved. His presentation is not consistent with meningitis or temporal arteritis, TIA or CVA (SAH again considered unlikely), acute glaucoma, carbon monoxide poisoning. ECG shows normal sinus rhythm with only nonspecific T-wave flattening. We are also checking basic labs. If head CT shows no hemorrhage it will be appropriate to discharge patient home, he already would like to go home before CT has been read but is willing to wait for radiology interpretation. He'll call his doctor tomorrow and already has a follow-up appointment scheduled. Diagnostic Imaging Diagonstic Imaging: CT Departure Impression Primary Impression: Subconjunctival hemorrhage Additional Impression: Headache Disposition: 01 HOME, SELF-CARE Condition: Stable Departure-Patient Inst. Referrals: JOSE C SALINAS MD (PCP) Primary Care Physician NO,LOCAL PHYSICIAN (Family) Primary Care Physician Patient Instructions: Headache, Adult, Subconjunctival Hemorrhage CHARMAINE REYNOSO DO Jan 09, 2019 18:42
--- NOTE | 2019-01-09 18:55 | NUR ---
REPORT GIVEN TO MICHAEL ET CARE TURNED OVER TO HER.
[2019-01-09 18:56] LABS: HEMOGLOBIN 14.9 G/DL (13.3-17.7); WHITE BLOOD COUNT 5.9 10^3/uL (4.3-11.0)
[2019-01-09 18:57] LABS: MEAN PLATELET VOLUME 9.9 FL (7.4-10.4)
--- NOTE | 2019-01-09 19:20 | Diagnostic Imaging Report ---
CLINICAL INDICATION: Patient complains of severe headache today and has bloodshot eyes. History of stroke. EXAM: Axial CT scan of brain performed without IV contrast. COMPARISON: None. FINDINGS: Of note, the posterior aspect of the occipital lobes and portion of the parietal lobe are not completely imaged on this exam limiting evaluation. There is a roughly 3.8 cm x 3.2 cm CSF signal intensity fluid collection in the left of midline inferior posterior fossa region which may represent an arachnoid cyst. There are patchy and confluent areas of low-attenuation white matter changes involving both cerebral hemispheres. There is brain parenchymal volume loss seen. There is no large vascular territory cerebral infarct. There is no intracranial hemorrhage, brain herniation, or midline shift. Basal cisterns are unremarkable. Extracranial soft tissue, skull, and orbits are unremarkable. Paranasal sinuses and temporal bone structures are unremarkable. IMPRESSION: 1: There is no definite CT evidence of interval acute cerebral infarction, intracranial hemorrhage, or mass seen. Given the diffuse low attenuation changes throughout the brain parenchyma which can obscure more subtle findings, if there is clinical concern for acute cerebral infarction, MRI of the brain would better evaluate. 2: Nonspecific diffuse patchy and confluent low-attenuation white matter changes are seen throughout both cerebral hemispheres. Chronic small vessel ischemic disease and leukoaraiosis may be considered depending on patient's clinical history. 3: Likely arachnoid cyst in the left posterior fossa. Dictated by: Dictated on workstation # [id number]
--- NOTE | 2019-01-09 19:30 | NUR ---
Doctor in with the patient at this time.
[2019-01-09 20:09] LABS: BUN/CREATININE RATIO 21; CARBON DIOXIDE 33 MMOL/L (21-32); CHLORIDE 103 MMOL/L (98-107); CREATININE SERUM 0.95 MG/DL (0.60-1.30); GFR ESTIMATED > 60; POTASSIUM 4.3 MMOL/L (3.6-5.0); SODIUM 142 MMOL/L (135-145)
[2019-01-09 20:10] LABS: CALCIUM 9.2 MG/DL (8.5-10.1); GLUCOSE 209 MG/DL (70-105)
[2019-01-09 20:24] VITALS: BP 136/86
== END 2019-01-09 20:22 | disposition home or self-care (01) ==
LOC: EDUNIT# 18:05 → ER FS 18:08
DX: R51 Headache (principal); H11.31 Conjunctival hemorrhage, right eye; G47.30 Sleep apnea, unspecified; G40.909 Epilepsy, unspecified, not intractable, without status epilepticus; K21.9 Gastro-esophageal reflux disease without esophagitis; F32.9 Major depressive disorder, single episode, unspecified; Z85.828 Personal history of other malignant neoplasm of skin; Z87.442 Personal history of urinary calculi; Z86.73 Personal history of transient ischemic attack (TIA), and cerebral infarction without residual deficits; Z79.02 Long term (current) use of antithrombotics/antiplatelets; Z88.5 Allergy status to narcotic agent; Z79.82 Long term (current) use of aspirin
CPT/HCPCS: 36415; 70450; 80048; 85027; 93005